=== PATIENT | female | born 1930 | race Caucasian/White ===

== ENCOUNTER 2017-03-10 01:52 | Inpatient (IN) | payer OTHER, MEDICARE ==
[2017-03-10] MEDS ORDERED: IOPAMIDOL (ISOVUE 370) 100 ML BTL IV ONE (02:02)
--- NOTE | 2017-03-10 02:05 | EDPHY ---
H & P Time Seen by Provider: 03/10/17 02:02 HPI/ROS: Chief Complaint: Left-sided weakness HPI: 86-year-old woman who went to bed normal at 10 o'clock in the evening. She woke this morning to go to the bathroom and fell with a new left-sided weakness. On EMS arrival she was awake and alert and having difficulties moving her left arm in her left leg. She had no loss of consciousness. She has past medical history of hypertension. Denies any chest pain shortness of breath. No recent illness. ROS: 10 point Review of Systems is negative except as noted in the HPI. PMH: Hypertension, vertigo, hypothyroidism Medications: Synthroid, meclizine p.r.n. Social History: No smoking, no alcohol, no recreational drug use Family History: non-contributory Physical Exam: Gen: Awake, Alert, No Distress HEENT: Nose: no rhinorrhea Eyes: PERRLA, EOMI Mouth: Moist mucosa Neck: Supple, no JVD Chest: nontender, lungs clear to auscultation Heart: S1, S2 normal, no murmur Abd: Soft, non-tender, no guarding Back: no CVA tenderness, no midline tenderness Ext: no edema, non-tender Skin: no rash Neuro: See NIH exam - Medical/Surgical History Other PMH: thyroid - Social History Smoking Status: Former smoker Constitutional: Initial Vital Signs Heart Rate 80 03/10/17 02:21 Respiratory Rate 14 03/10/17 02:21 Blood Pressure 162/91 H 03/10/17 02:21 O2 Sat (%) 93 03/10/17 02:21 O2 Delivery Mode Room Air Allergies/Adverse Reactions: Penicillins Allergy (Severe, Verified 03/10/17 02:23) throat closes up soy Allergy (Verified 03/10/17 02:23) Home Medications: Medication Instructions Recorded Thyroid [[place]ata Thyroid] 60 mg PO DAILY10 08/02/15 Meclizine HCl 03/10/17 Medical Decision Making - Diagnostics Imaging Results: CT scan of the brain is negative per Dr. Drake CT angiogram of the head neck shows some mild sclerosis of the carotid arteries , otherwise negative head and CT angiogram. Interpreted by Dr. Drake. Imaging: Discussed imaging studies w/ casino banker Radiologist ED Course/Re-evaluation: Patient arrived as a stroke alert. Initial NIH score of 8. Patient to CT. I have consulted with Dr. Owens, who [facility]. Patient is outside the time window for thrombolytics. Will await CT results. CT scan of the head is negative for acute pathology. Awaiting CT angio results. Patient's condition is unchanged CT angio of the head neck are noted. No acute processes. I have discussed again with Dr. Owens, neurology. She is commended admitted patient here for MRI and further stroke workup. Patient is not a candidate for any thrombolytics or intra-arterial therapy at this time. Patient is awake alert and comfortable. No significant changes in her neurologic exam. I have discussed with Dr. Contreras. He will admit to his service for further care. Critical Care Time: I spent a total of 35 minutes of critical care time in obtaining history, performing a physical exam, bedside monitoring of interventions, collecting and interpreting tests and discussion with consultants but not including time spent performing procedures. - Data Points Laboratory Results: Laboratory Results 03/10/17 01:50 03/10/17 01:50 03/10/17 03/10/17 03/10/17 01:50 01:50 01:50 WBC 8.71 10^3/uL 10^3/uL (3.80-9.50) RBC 4.72 10^6/uL 10^6/uL (4.18-5.33) Hgb 15.1 g/dL g/dL (12.6-16.3) POC Hgb Hct 44.2 % % (38.0-47.0) POC Hct MCV 93.6 fL fL (81.5-99.8) MCH 32.0 pg pg (27.9-34.1) MCHC 34.2 g/dL g/dL (32.4-36.7) RDW 13.3 % % (11.5-15.2) Plt Count 234 10^3/uL 10^3/uL (150-400) MPV 9.6 fL fL (8.7-11.7) Neut % (Auto) 63.8 % % (39.3-74.2) Lymph % (Auto) 24.3 % % (15.0-45.0) [place] % (Auto) 9.5 % % (4.5-13.0) Eos % (Auto) 1.5 % % (0.6-7.6) Baso % (Auto) 0.7 % % (0.3-1.7) Nucleat RBC Rel Count 0.0 % % (0.0-0.2) Absolute Neuts (auto) 5.55 10^3/uL 10^3/uL (1.70-6.50) Absolute Lymphs (auto) 2.12 10^3/uL 10^3/uL (1.00-3.00) Absolute Monos (auto) 0.83 10^3/uL H 10^3/uL (0.30-0.80) Absolute Eos (auto) 0.13 10^3/uL 10^3/uL (0.03-0.40) Absolute Basos (auto) 0.06 10^3/uL 10^3/uL (0.02-0.10) Absolute Nucleated RBC 0.00 10^3/uL 10^3/uL (0-0.01) Immature Gran % 0.2 % % (0.0-1.1) Immature Gran # 0.02 10^3/uL 10^3/uL (0.00-0.10) PT INR APTT POC Sodium Sodium 140 mEq/L mEq/L (134-144) POC Potassium Potassium 4.1 mEq/L mEq/L (3.5-5.2) POC Chloride Chloride 107 mEq/L mEq/L (97-110) Carbon Dioxide 24 mEq/l mEq/l (22-31) Anion Gap 9 mEq/L mEq/L (8-16) POC BUN BUN 13 mg/dL mg/dL (7-23) Creatinine 0.9 mg/dL mg/dL (0.6-1.0) POC Creatinine Estimated GFR 59 Glucose 103 mg/dL H mg/dL (70-100) POC Glucose Hemoglobin A1c Pending Estim Average Glucose Pending Calcium 10.6 mg/dL H mg/dL (8.5-10.4) Phosphorus Total Bilirubin 0.5 mg/dL mg/dL (0.1-1.4) AST 17 IU/L IU/L (14-46) ALT 24 IU/L IU/L (9-52) Alkaline Phosphatase 61 IU/L IU/L (38-126) Troponin I Total Protein 6.3 g/dL g/dL (6.3-8.2) Albumin 3.6 g/dL g/dL (3.5-5.0) 03/10/17 03/10/17 03/10/17 01:50 01:50 01:50 WBC 8.61 10^3/uL 10^3/uL (3.80-9.50) RBC 5.07 10^6/uL 10^6/uL (4.18-5.33) Hgb 15.9 g/dL g/dL (12.6-16.3) POC Hgb Hct 47.2 % H % (38.0-47.0) POC Hct MCV 93.1 fL fL (81.5-99.8) MCH 31.4 pg pg (27.9-34.1) MCHC 33.7 g/dL g/dL (32.4-36.7) RDW 13.3 % % (11.5-15.2) Plt Count 260 10^3/uL 10^3/uL (150-400) MPV 10.0 fL fL (8.7-11.7) Neut % (Auto) 47.0 % % (39.3-74.2) Lymph % (Auto) 39.0 % % (15.0-45.0) [place] % (Auto) 10.0 % % (4.5-13.0) Eos % (Auto) 3.1 % % (0.6-7.6) Baso % (Auto) 0.8 % % (0.3-1.7) Nucleat RBC Rel Count 0.0 % % (0.0-0.2) Absolute Neuts (auto) 4.04 10^3/uL 10^3/uL (1.70-6.50) Absolute Lymphs (auto) 3.36 10^3/uL H 10^3/uL (1.00-3.00) Absolute Monos (auto) 0.86 10^3/uL H 10^3/uL (0.30-0.80) Absolute Eos (auto) 0.27 10^3/uL 10^3/uL (0.03-0.40) Absolute Basos (auto) 0.07 10^3/uL 10^3/uL (0.02-0.10) Absolute Nucleated RBC 0.00 10^3/uL 10^3/uL (0-0.01) Immature Gran % 0.1 % % (0.0-1.1) Immature Gran # 0.01 10^3/uL 10^3/uL (0.00-0.10) PT 13.1 SEC SEC (12.0-15.0) INR 1.00 (0.83-1.16) APTT 22.5 SEC L SEC (23.0-38.0) POC Sodium Sodium 140 mEq/L mEq/L (134-144) POC Potassium Potassium 4.1 mEq/L mEq/L (3.5-5.2) POC Chloride Chloride 106 mEq/L mEq/L (97-110) Carbon Dioxide 22 mEq/l mEq/l (22-31) Anion Gap 12 mEq/L mEq/L (8-16) POC BUN BUN 14 mg/dL mg/dL (7-23) Creatinine 0.9 mg/dL mg/dL (0.6-1.0) POC Creatinine Estimated GFR 59 Glucose 113 mg/dL H mg/dL (70-100) POC Glucose Hemoglobin A1c Estim Average Glucose Calcium 11.3 mg/dL H mg/dL (8.5-10.4) Phosphorus 3.7 mg/dL mg/dL (2.5-4.5) Total Bilirubin AST ALT Alkaline Phosphatase Troponin I < 0.012 ng/mL ng/mL (0.000-0.034) Total Protein Albumin 03/10/17 01:50 WBC RBC Hgb POC Hgb 16.7 gm/dL H gm/dL (12.6-16.3) Hct POC Hct 49 % H % (38-47) MCV MCH MCHC RDW Plt Count MPV Neut % (Auto) Lymph % (Auto) [place] % (Auto) Eos % (Auto) Baso % (Auto) Nucleat RBC Rel Count Absolute Neuts (auto) Absolute Lymphs (auto) Absolute Monos (auto) Absolute Eos (auto) Absolute Basos (auto) Absolute Nucleated RBC Immature Gran % Immature Gran # PT INR APTT POC Sodium 143 mEq/L mEq/L (134-144) Sodium POC Potassium 3.7 mEq/L mEq/L (3.3-5.0) Potassium POC Chloride 109 mEq/L mEq/L (97-110) Chloride Carbon Dioxide Anion Gap POC BUN 13 mg/dL mg/dL (7-23) BUN Creatinine POC Creatinine 0.9 mg/dL mg/dL (0.6-1.0) Estimated GFR Glucose POC Glucose 122 mg/dL H mg/dL (70-100) Hemoglobin A1c Estim Average Glucose Calcium Phosphorus Total Bilirubin AST ALT Alkaline Phosphatase Troponin I Total Protein Albumin Point of Care Test Results: 03/10/17 01:50 POC Sodium 143 POC Potassium 3.7 POC Chloride 109 POC BUN 13 POC Creatinine 0.9 POC Glucose 122 H Departure - Departure Disposition: [facility] Inpatient Acute Clinical Impression: Stroke Condition: Fair NIH Stroke Scale Date of Exam: 03/10/17 Time of Exam: 01:55 Level of Consciousness: Alert LOC Questions: Answers Both LOC Commands: Performs Both Correctly Best Gaze: Normal Visual: No Visual Loss Facial Palsy: Normal Motor Arm-Left: Some Effort to [place] Motor Arm-Right: No Drift Motor Leg-Left: No Effort to [place] Motor Leg-Right: No Effort to [place] Limb Ataxis: Absent Sensory: Normal Best Language: No Aphasia Dysarthria: Normal Extinction and Inattention (Neglect): No Abnormality NIH Scale Score: 8
[2017-03-10 02:07] LABS: % IMMATURE GRANULYOCYTES 0.1 % (0.0-1.1); ABSOLUTE IMMATURE GRANULOCYTES 0.01 10^3/uL (0.00-0.10); ADD DIFF? NO; ADD MORPH? NO; ADD SCAN? NO; ATYPICAL LYMPHOCYTE FLAG 10 (0-99); FRAGMENT RBC FLAG 0 (0-99); HEMATOCRIT 47.2 % (38.0-47.0); HEMOGLOBIN 15.9 g/dL (12.6-16.3); LEFT SHIFT FLG 0 (0-99); LIPEMIA HEMOLYSIS FLAG 80 (0-99); MEAN CELL HEMOGLOBIN 31.4 pg (27.9-34.1); MEAN CELL HEMOGLOBIN CONCENTR. 33.7 g/dL (32.4-36.7); MEAN CELL VOLUME 93.1 fL (81.5-99.8); PLATELET CLUMPS FLAG 40 (0-99); PLATELET COUNT 260 10^3/uL (150-400); RED BLOOD CELL COUNT 5.07 10^6/uL (4.18-5.33); RED CELL DISTRIBUTION WIDTH 13.3 % (11.5-15.2)
[2017-03-10 02:16] LABS: APTT 22.5 SEC (23.0-38.0); PROTIME(PATIENT) 13.1 SEC (12.0-15.0)
--- NOTE | 2017-03-10 02:27 | CPEKG ---
Heart Rate: 68 RR Interval: 882 P-R Interval: 140 QRSD Interval: 102 QT Interval: 400 QTC Interval: 426 P [place]: 28 QRS [place]: 10 T Wave [place]: 31 EKG Severity - ABNORMAL ECG - EKG Impression: SINUS RHYTHM EKG Impression: PROBABLE LEFT VENTRICULAR HYPERTROPHY Electronically Signed By: Duane Fernandes 10-Mar-2017 06:45:04
[2017-03-10 02:28] LABS: ANION GAP 12 mEq/L (8-16); CALCIUM 11.3 mg/dL (8.5-10.4); CARBON DIOXIDE 22 mEq/l (22-31); CHLORIDE 106 mEq/L (97-110); CREATININE 0.9 mg/dL (0.6-1.0); GLOMERULAR FILTRATION RATE 59; GLUCOSE 113 mg/dL (70-100); POTASSIUM 4.1 mEq/L (3.5-5.2); SODIUM 140 mEq/L (134-144)
[2017-03-10 02:40] LABS: TROPONIN I < 0.012 ng/mL (0.000-0.034)
[2017-03-10] MEDS ORDERED: ONDANSETRON DISINTEGRATING 4 MG TAB PO PRN (03:23)
[2017-03-10] MEDS ORDERED: ACETAMINOPHEN 325 MG TAB PO PRN (03:23)
[2017-03-10] MEDS ORDERED: ONDANSETRON 4 MG/2 ML VIAL IVP PRN (03:23)
--- NOTE | 2017-03-10 03:34 | PDGENHP ---
History and Physical - Chief Complaint Weakness - History of Present Illness 86 yo F with hypothyroidism presents to ED via EMS after acute onset of weakness. Patient went to bed in her usual state of health. She got up to go the bathroom around 10 PM and noted leg weakness. She called the front office at her independent living facility and they called EMS. EMS noted left sided weakness and brought her to the ED as a stroke alert. Upon arrival to the ED, ED physician Dr. Fernandes documented a NIHSS of 8 for L arm and b/l leg weakness. Upon my evaluation, it seems deficits were somewhat resolving. She was alert, fully oriented, and able to clearly retell the evening's events. She denies recent illness and her only medication is levothyroxine. She denies any acute symptoms at this time aside from b/l leg weakness. History Information - Allergies/Home Medication List Allergies/Adverse Reactions: Penicillins Allergy (Severe, Verified 03/10/17 02:23) throat closes up soy Allergy (Verified 03/10/17 02:23) Home Medications: Thyroid [Gregory Thyroid] 60 mg PO DAILY10 08/02/15 [Last Taken Unknown] Meclizine HCl 03/10/17 [Last Taken Unknown] I have personally reviewed and updated: family history, medical history - Past Medical History Additional medical history: Hypothyroid - Family History Positive for: diabetes type II, stroke - Social History Smoking Status: Former smoker Alcohol Use: None Drug Use: None Review of Systems Review of Systems: ROS: 10pt was reviewed & negative except for what was stated in HPI & below Physical Exam Physical Exam: Temp Pulse Resp BP Pulse Ox 80 14 162/91 H 93 03/10/17 02:21 03/10/17 02:21 03/10/17 02:21 03/10/17 02:21 Constitutional: no apparent distress, appears nourished Eyes: PERRL, EOMI Ears, Nose, Mouth, Throat: moist mucous membranes, no oral mucosal ulcers Cardiovascular: regular rate and rhythym, no murmur, rub, or gallop Respiratory: no respiratory distress, clear to auscultation Gastrointestinal: normoactive bowel sounds, soft, non-tender abdomen Skin: warm, no rashes or abrasions Neurologic: AAOx3, weakness (Mild LUE weakness with arm drifting down but not touching bed during 10 sec NIHSS strength test. B/l leg strength normal per NIHSS evaluation.), facial droop (Subtle left-sided facial droop. ), other ( NIHSS 2 on my evaluation.) Psychiatric: interacting appropriately, not anxious, not encephalopathic Lab Data & Imaging Review 03/10/17 01:50 03/10/17 01:50 WBC 8.61 10^3/uL (3.80-9.50) 03/10/17 01:50 RBC 5.07 10^6/uL (4.18-5.33) 03/10/17 01:50 Hgb 15.9 g/dL (12.6-16.3) 03/10/17 01:50 POC Hgb 16.7 gm/dL (12.6-16.3) H 03/10/17 01:50 Hct 47.2 % (38.0-47.0) H 03/10/17 01:50 POC Hct 49 % (38-47) H 03/10/17 01:50 MCV 93.1 fL (81.5-99.8) 03/10/17 01:50 MCH 31.4 pg (27.9-34.1) 03/10/17 01:50 MCHC 33.7 g/dL (32.4-36.7) 03/10/17 01:50 RDW 13.3 % (11.5-15.2) 03/10/17 01:50 Plt Count 260 10^3/uL (150-400) 03/10/17 01:50 MPV 10.0 fL (8.7-11.7) 03/10/17 01:50 Neut % (Auto) 47.0 % (39.3-74.2) 03/10/17 01:50 Lymph % (Auto) 39.0 % (15.0-45.0) 03/10/17 01:50 [place] % (Auto) 10.0 % (4.5-13.0) 03/10/17 01:50 Eos % (Auto) 3.1 % (0.6-7.6) 03/10/17 01:50 Baso % (Auto) 0.8 % (0.3-1.7) 03/10/17 01:50 Nucleat RBC Rel Count 0.0 % (0.0-0.2) 03/10/17 01:50 Absolute Neuts (auto) 4.04 10^3/uL (1.70-6.50) 03/10/17 01:50 Absolute Lymphs (auto) 3.36 10^3/uL (1.00-3.00) H 03/10/17 01:50 Absolute Monos (auto) 0.86 10^3/uL (0.30-0.80) H 03/10/17 01:50 Absolute Eos (auto) 0.27 10^3/uL (0.03-0.40) 03/10/17 01:50 Absolute Basos (auto) 0.07 10^3/uL (0.02-0.10) 03/10/17 01:50 Absolute Nucleated RBC 0.00 10^3/uL (0-0.01) 03/10/17 01:50 Immature Gran % 0.1 % (0.0-1.1) 03/10/17 01:50 Immature Gran # 0.01 10^3/uL (0.00-0.10) 03/10/17 01:50 PT 13.1 SEC (12.0-15.0) 03/10/17 01:50 INR 1.00 (0.83-1.16) 03/10/17 01:50 APTT 22.5 SEC (23.0-38.0) L 03/10/17 01:50 POC Sodium 143 mEq/L (134-144) 03/10/17 01:50 Sodium 140 mEq/L (134-144) 03/10/17 01:50 POC Potassium 3.7 mEq/L (3.3-5.0) 03/10/17 01:50 Potassium 4.1 mEq/L (3.5-5.2) 03/10/17 01:50 POC Chloride 109 mEq/L (97-110) 03/10/17 01:50 Chloride 106 mEq/L (97-110) 03/10/17 01:50 Carbon Dioxide 22 mEq/l (22-31) 03/10/17 01:50 Anion Gap 12 mEq/L (8-16) 03/10/17 01:50 POC BUN 13 mg/dL (7-23) 03/10/17 01:50 BUN 14 mg/dL (7-23) 03/10/17 01:50 Creatinine 0.9 mg/dL (0.6-1.0) 03/10/17 01:50 POC Creatinine 0.9 mg/dL (0.6-1.0) 03/10/17 01:50 Estimated GFR 59 03/10/17 01:50 Glucose 113 mg/dL (70-100) H 03/10/17 01:50 POC Glucose 122 mg/dL (70-100) H 03/10/17 01:50 Calcium 11.3 mg/dL (8.5-10.4) H 03/10/17 01:50 Phosphorus 3.7 mg/dL (2.5-4.5) 03/10/17 01:50 Troponin I < 0.012 ng/mL (0.000-0.034) 03/10/17 01:50 Imaging Review: CT Head with no acute findings. CTA Head/Neck with calcified plaque of b/l carotids but <50% stenosis. No acute thrombus identified. Visualized and Interpreted EKG results: Yes EKG Interpretation: Positive for: normal sinsus rhythm Assessment & Plan Assessment: 86 yo F w/ hypothyroid presenting with stroke. Plan: 1. Acute stroke, ischemic - Discussed case with ED physician Dr. Fernandes, who consulted Neurology in ED. Noting arrival in ED 4 hours after symptom onset and age >80, the decision was made to not administer t-Pa. NIHSS initially 8 on arrival in ED, improved to 2 (subtle L facial droop, mild L arm weakness) by the time of my evaluation [address] head showed no acute change and CTA Head/neck showed only calcified stenosis of b/l carotids, <50%. ECG in NSR. - Monitor on telemetry - Obtain echocardiogram - Check lipid panel, A1c - Will start ASA 81 qD, Atorva 20 (med intensity statin given age) - MRI brain ordered - Neurology consulted, appreciate assistance 2. Hypercalcemia - Has documented hyperparathyroidism. 3. Hypothyroid - Takes LTX as outpatient. Diet - NPO pending swallow evaluation Code - DNR per discussion with patient Ppx - SCDs Dispo - Admit to observation, suspect <2 MN noting resolving symptoms Proxy - Daughter, Kayla Diaz
[2017-03-10 04:46] LABS: % IMMATURE GRANULYOCYTES 0.2 % (0.0-1.1); ABSOLUTE IMMATURE GRANULOCYTES 0.02 10^3/uL (0.00-0.10); ADD DIFF? NO; ADD MORPH? NO; ADD SCAN? NO; ATYPICAL LYMPHOCYTE FLAG 20 (0-99); FRAGMENT RBC FLAG 0 (0-99); HEMATOCRIT 44.2 % (38.0-47.0); HEMOGLOBIN 15.1 g/dL (12.6-16.3); LEFT SHIFT FLG 0 (0-99); LIPEMIA HEMOLYSIS FLAG 90 (0-99); MEAN CELL HEMOGLOBIN CONCENTR. 34.2 g/dL (32.4-36.7); MEAN CELL VOLUME 93.6 fL (81.5-99.8); MEAN PLATELET VOLUME 9.6 fL (8.7-11.7); PLATELET CLUMPS FLAG 0 (0-99); PLATELET COUNT 234 10^3/uL (150-400); RED BLOOD CELL COUNT 4.72 10^6/uL (4.18-5.33); RED CELL DISTRIBUTION WIDTH 13.3 % (11.5-15.2)
[2017-03-10 05:05] LABS: ALANINE AMINOTRANSFERASE 24 IU/L (9-52); ALBUMIN 3.6 g/dL (3.5-5.0); ALKALINE PHOSPHATASE 61 IU/L (38-126); ANION GAP 9 mEq/L (8-16); ASPARTATE AMINOTRANSFERASE 17 IU/L (14-46); BILIRUBIN,TOTAL 0.5 mg/dL (0.1-1.4); CALCIUM 10.6 mg/dL (8.5-10.4); CARBON DIOXIDE 24 mEq/l (22-31); CHLORIDE 107 mEq/L (97-110); CREATININE 0.9 mg/dL (0.6-1.0); GLOMERULAR FILTRATION RATE 59; GLUCOSE 103 mg/dL (70-100); POTASSIUM 4.1 mEq/L (3.5-5.2); SODIUM 140 mEq/L (134-144); TOTAL PROTEIN 6.3 g/dL (6.3-8.2)
[2017-03-10] MEDS: ASPIRIN 81 MG CHEWABLE TAB PO SCH (08:40)
[2017-03-10] MEDS: ATORVASTATIN CALCIUM 20 MG TAB PO SCH (08:42)
[2017-03-10 09:52] LABS: HEMOGLOBIN A1C 5.1 % (4.0-6.0)
--- NOTE | 2017-03-10 13:47 | NEUROPROG ---
Assessment: [id number] CC: Probable Stroke HPI: Pt brought in for acute weakness. Went to bed on 03/09/17 in normal state of good health but awoke at 10 PM and noted weakness. EMS called and brought ED where it was noted she had b/l leg and left arm weakness with NIH SS 8. Head CT and CTA head/neck showed no acute findings. H&P stated pt presented > 4 hours after symptom onset and age > 80 yo so TPA not given (symptoms also improving). I saw her 03/10/17. She reported symptoms had improved but she still had left facial/arm/leg weakness. PMHx: hypothyroidism, hyperparathyroidism Home Meds: armour thyroid, meclizine SHx: lives in independent assisted living FHx: DM2, stroke ROS: Pt denied acute fever, total vision loss, active severe chest pain, respiratory failure, total body severe rash, total bowel/bladder incontinence, psychosis, active seizures, or active bleeding O: VS reviewed General: Alert Eyes: Fundoscopic exam not able to visualize optic disks CV: Heart RRR, no murmur, no carotid bruit Lungs: Clear to auscultation bilaterally, no rhonci or rales Neuro: - Mental: . Oriented x person/place/date . concentration appears normal . speech fluency/comprehension normal . memory appears normal . fund of knowledge appear intact - Cranial Nerves: . II: PERRL, VFFTC . III/IV/: EOMI, no nystagmus, normal smooth pursuits, no Ptosis . V: facial sensation intact to LT . VII: face symmetric to eye closure and smile but lower left facial weakness seen . VIII: hearing intact to conversation . IX/X: uvula raises symmetrically . XI: SCM 5/5 B/L strength . XII: tongue protrudes midline w/nl strength - Motor: . Tone: normal tone in all 4 extrem . Strength: left arm/leg weakness - Reflexes: B/L bic/BR/patella 2/4 - Sensory: all 4 extrem intact to light touch - Coord: [id number] wnl, PAKO wnl, [id number]-[id number] wnl - Gait: deferred - NIH SS: 4 (left lower facial weak 2, left arm 1/left leg 1) Labs: 03/10/17- CBC wnl, INR 1.00, CMP Ca 10.6H Rads: 03/10/17- Head CT: no acute changes (I personally visualized the images on ) 03/10/17- CTA head/neck: reported to not show anything acute with carotid stenosis < 50% Assessment: 1. Left face/arm/leg weakness: Probable right sided stroke. Will get stroke evaluation. 2. Elevated blood pressure Plan: - Pt is DNR - Labs: LDL, H1AC - TTE - 24 hour telemtry - Brain MRI w/o con - BP < 220/120 x 72 hours then < 140/90 - Begin ASA 325 mg qd (pt not on aspirin prior to event), change to aspirin 81 mg qd at discharge - DVT prophy per hospitalist - PT/OT consult to determine rehab needs Neurology will continue to follow closely Objective: Vital Signs Temp Pulse Resp BP Pulse Ox 36.3 C 57 L 12 186/83 H 97 03/10/17 11:49 03/10/17 11:49 03/10/17 11:49 03/10/17 11:49 03/10/17 11:49 03/09/17 03/10/17 03/11/17 05:59 05:59 05:59 Intake Total 230 Output Total 300 Balance -70 PT 13.1 SEC (12.0-15.0) 03/10/17 01:50 INR 1.00 (0.83-1.16) 03/10/17 01:50 Allergies/Adverse Reactions: Penicillins Allergy (Severe, Verified 03/10/17 02:23) throat closes up soy Allergy (Verified 03/10/17 02:23)
--- NOTE | 2017-03-10 13:49 | HOSPPROG ---
Hospitalist Progress Note Assessment/Plan: Patient is an 86 y/o female who presented to the ED with acute onset of weakness. She was brought to the ER for a stroke w/u. * Acute stroke, ischemic /left sided weakness MRI Shows a right frontal lobe lacunar infarct CTA of the neck shows some stenosis CT of the head shows no acute thrombus in the [place] reviewed waiter/waitress bar/ sinus rhythm lipid panel pending A1c is 5.1 on asa and statin *Hypercalcemia has known hyperparathyroidism Ca level better w hydration *hypothyroidism cont Synthroid *HTN allow for permissive htn in the setting of an acute stroke *dispo: pending/ she will need a SNF with paralysis/weakness of her left side. Subjective: Guillermina who goes by Lin is feeling well/ she is aware she has a stroke Objective: Vital Signs Temp Pulse Resp BP Pulse Ox 36.3 C 57 L 12 186/83 H 97 03/10/17 11:49 03/10/17 11:49 03/10/17 11:49 03/10/17 11:49 03/10/17 11:49 03/09/17 03/10/17 03/11/17 05:59 05:59 05:59 Intake Total 230 Output Total 300 Balance -70 PT 13.1 SEC (12.0-15.0) 03/10/17 01:50 INR 1.00 (0.83-1.16) 03/10/17 01:50 - Physical Exam Constitutional: no apparent distress, not in pain Eyes: PERRL Ears, Nose, Mouth, Throat: hearing normal Cardiovascular: regular rate and rhythym Respiratory: no respiratory distress Skin: warm Musculoskeletal: other (unable to lift left arm against gravity, can move left leg/ squeeze w left hand is weak) Neurologic: AAOx3 Psychiatric: interacting appropriately, not anxious ICD10 Worksheet Patient Problems: Problems Problem Status Onset Stroke Acute
--- NOTE | 2017-03-10 16:19 | ASMTCMCOM ---
CM Note CM Note Notes: Patiented admitted for Acute Stroke. Rehab Consult ordered, Tiffany at [facility] Inpatient Rehab aware and looking into case. Tiffany will follow-up with Case Management on Friday. Discussed with BOTTOM POLISHER. ADELIA will follow. Date Signed: 03/10/2017 04:18 PM Electronically Signed By:Rosita Esquivel RN
[2017-03-11 05:13] LABS: CHOLESTEROL 183 mg/dL (140-220); CHOLESTEROL/HDL RATIO 3.16 RATIO (1.00-4.44); HIGH DENSITY LIPOPROTEIN 58 mg/dL (40-85); LDL/HDL RATIO 1.93 RATIO (1.00-3.22); LOW DENSITY LIPOPROTEIN 112 mg/dL (80-100); NON-HIGH DENSITY LIPOPROTEIN 125 mg/dL (90-129); TRIGLYCERIDE 66 mg/dL (35-135); VERY LOW DENSITY LIPOPROTEINS 13 mg/dL (8-25)
[2017-03-11] MEDS: LEVOTHYROXINE 88 MCG TAB PO SCH (06:15)
[2017-03-11] MEDS: ASPIRIN 81 MG CHEWABLE TAB PO SCH (08:51)
[2017-03-11] MEDS: ATORVASTATIN CALCIUM 20 MG TAB PO SCH (08:54)
--- NOTE | 2017-03-11 11:00 | HOSPPROG ---
Hospitalist Progress Note Assessment/Plan: Patient is an 86 y/o female who presented to the ED with acute onset of weakness. She was brought to the ER for a stroke w/u. * Acute stroke, ischemic /left sided weakness MRI Shows a right frontal lobe lacunar infarct CTA of the neck shows some stenosis CT of the head shows no acute thrombus in the [place] reviewed header dock/ sinus rhythm/no afib ldl is 112 A1c is 5.1 on asa and statin Echo shows diastolic dysfunction, EF 63% the interatrial septum is intact, no interatrial shunt *Hypercalcemia has known hyperparathyroidism Ca level better w hydration *hypothyroidism cont Synthroid *HTN allow for permissive htn in the setting of an acute stroke *dispo: patient will need another midnight stay/ unable to return to her AL due to weakness from the stroke and will need a higher level of care. This will make her IP status. Subjective: Lin has no complaints. His hesitant to try a statin but is willing to to reduce her risk of stroke Objective: Vital Signs Temp Pulse Resp BP Pulse Ox 36.6 C 56 L 14 175/77 H 93 03/11/17 08:00 03/11/17 08:00 03/11/17 08:00 03/11/17 08:00 03/11/17 08:00 03/10/17 03/11/17 03/12/17 05:59 05:59 05:59 Intake Total 230 450 Output Total 300 300 Balance -70 450 -300 PT 13.1 SEC (12.0-15.0) 03/10/17 01:50 INR 1.00 (0.83-1.16) 03/10/17 01:50 - Physical Exam Constitutional: no apparent distress, appears nourished, not in pain Eyes: PERRL Ears, Nose, Mouth, Throat: hearing normal Cardiovascular: regular rate and rhythym Respiratory: no respiratory distress Skin: warm, normal color Musculoskeletal: other (Left arm anti gravity, can slightly squeeze with left hand. Left arm seems a bit weaker since yesterday.) Neurologic: AAOx3, No facial droop Psychiatric: interacting appropriately, not anxious ICD10 Worksheet Patient Problems: Problems Problem Status Onset Stroke Acute
--- NOTE | 2017-03-11 11:35 | ASMTCMCOM ---
CM Note CM Note Notes: Received a voicemail from Tiffany Guerrero [phone] at [facility] Inpatient Rehab, feels patient is appropriate for acute rehab. at In. Rehab to now review case. Tiffany will follow-up with CM later today with further information. CM will follow. Date Signed: 03/11/2017 11:34 AM Electronically Signed By:Rosita Esquivel RN
--- NOTE | 2017-03-11 12:33 | NEUROPROG ---
Assessment: [id number] CC: F/U for Stroke Narrative Summary: Pt brought in for acute weakness. Went to bed on 03/09/17 in normal state of good health but awoke at 10 PM and noted weakness. EMS called and brought ED where it was noted she had b/l leg and left arm weakness with NIH SS 8. Head CT and CTA head/neck showed no acute findings. H&P stated pt presented > 4 hours after symptom onset and age > 80 yo so TPA not given (symptoms also improving). I saw her 03/10/17. She reported symptoms had improved but she still had left facial/arm/leg weakness. Inpatient f/u 03/11/17. No new complaints. Pt feels left sided weakness unchanged. PMHx: hypothyroidism, hyperparathyroidism Home Meds: armour thyroid, meclizine SHx: lives in independent assisted living FHx: DM2, stroke ROS: Pt denied acute fever, total vision loss, active severe chest pain, respiratory failure, total body severe rash, total bowel/bladder incontinence, psychosis, active seizures, or active bleeding O: 03/10/17: - NIH SS: 4 (left lower facial weak 2, left arm 1/left leg 1) Labs: 03/10/17- CBC wnl, INR 1.00, CMP Ca 10.6H, H1AC 5.1 03/11/17- LDL 112 Rads: 03/10/17- Head CT: no acute changes (I personally visualized the images on ) 03/10/17- CTA head/neck: reported to not show anything acute with carotid stenosis < 50% 03/10/17- Brain MRI w/o con: R subcortical frontal 1 cm acute stroke, old R lentiform lacunar stroke, mod CMVD and mild atrophy 03/10/17- 24 hour telemetry: no afib seen 03/10/17- TTE: pending Assessment: 1. Right Lacunar Subcortical frontal stroke causing Left face/arm/leg weakness: CTA head/neck and 24 hour telemetry show no alternative cause for stroke so likely lacunar from small vessel disease. TTE pending. Treatment will be maximal medical management unless TTE suggests cardioembolic source. 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 2. Elevated blood pressure Plan: - Pt is DNR - LDL goal < 70 (112), statin started - H1AC goal < 7.0 (5.1) - TTE pending - BP < 220/120 x 48 hours then < 140/90 - Begin ASA 325 mg qd (pt not on aspirin prior to stroke), change to aspirin 81 mg qd at discharge - PT/OT consult to determine rehab needs - F/U in neurology clinic with Dr. River 1-4 weeks after discharge 35 min spent with patient, majority of time spent counseling on stroke and prognosis. Neurology will sign off, please call for any questions. Objective: Vital Signs Temp Pulse Resp BP Pulse Ox 36.4 C 54 L 14 169/80 H 95 03/11/17 12:00 03/11/17 12:00 03/11/17 12:00 03/11/17 12:00 03/11/17 12:00 03/10/17 03/11/17 03/12/17 05:59 05:59 05:59 Intake Total 230 450 Output Total 300 300 Balance -70 450 -300 PT 13.1 SEC (12.0-15.0) 03/10/17 01:50 INR 1.00 (0.83-1.16) 03/10/17 01:50 Allergies/Adverse Reactions: Penicillins Allergy (Severe, Verified 03/10/17 02:23) throat closes up soy Allergy (Verified 03/10/17 02:23)
--- NOTE | 2017-03-11 14:49 | ECHO ---
[id number] + + [address] : : [place] [address] : : [phone] + + Adult Echocardiographic Report + --+ :Name: LEONARD TALAMANTES PStudy Date: 03/10/2017 09:31 AM : : Hospital Admission Number: [id number] : :: 1930 Gender: Female Height: 60 in : :Age: 86 yrs Race: WH Weight: 160 lb : :Reason For Study: Eval LV Fx : : BSA: 1.7 meter s2: :History: Ischemic Stroke with Bubble : + --+ MMode/2D Measurements & Calculations IVSd: 0.99 cm LVIDd: 3.8 cm FS: 32.7 % Ao root diam: 2.8 cm LVPWd: 1.0 cm LVIDs: 2.6 cm EDV(Teich): 62.1 ml ACS: 1.6 cm ESV(Teich): 23.7 ml EF(Teich): 61.9 % Normal Measurement Values: + + :LVIDd (3.5-5.7cm) IVSd (0.6-1.1cm) LVPWd (0.6-1.1cm) Aortic Root (2.0-3.7cm)Left Atrium (1.5-4.0cm): :LV Vol(d) (76-115ml) LV Vol(s) (29-48ml) Ejec Fraction (50-65%)PV Mukesh (0.6- 1.2m/s) TV Mukesh (0.4-1.0m/s) : :MV E Mukesh (0.8-1.0m/s)MV A Mukesh (0.3-1.0m/s)LVOT Mukesh (0.7-1.2m/s) Asc Ao Mukesh ( 0.9-1.8m/s) : + + Doppler Measurements & Calculations MV E max mukesh: Ao V2 max: AI max mukesh: LV V1 max: 49.9 cm/sec 104.5 cm/sec 494.7 cm/sec 92.3 cm/sec MV A max mukesh: Ao max PG: AI max P.9 mmHg LV V1 max P.1 cm/sec 4.4 mmHg AI dec slope: 3.4 mmHg MV E/A: 0.70 200.3 cm/sec2 AI P1/2t: 723.5 msec PA V2 max: 122.2 cm/sec PA max P.0 mmHg Left Ventricle The left ventricle is normal in size. There is normal left ventricular wall thickness. The left ventricular ejection fraction is normal. There is Doppler evidence for diastolic dysfunction. Ejection Fraction = 63%. Right Ventricle The right ventricle is normal in size and function. Atria The left atrial size is normal. Right atrial size is normal. Injection of contrast documented no interatrial shunt. Mitral Valve There is mild mitral annular calcification. There is no evidence of mitral valve prolapse. There is no mitral valve stenosis. There is no mitral regurgitation noted. Tricuspid Valve Normal tricuspid valve. No tricuspid regurgitation. Aortic Valve The aortic valve is trileaflet. There is no aortic stenosis. Mild aortic regurgitation. Pulmonic Valve The pulmonic valve is not well visualized. There is no pulmonic valvular regurgitation. Great Vessels The aortic root is normal size. Pericardium/Pleural There is no pericardial effusion. Conclusion A complete two-dimensional transthoracic echocardiogram was performed (2D, M-mode, Doppler and color flow Doppler). 1. The left ventricle is normal in size. The Ejection Fraction = 63%. 2. There is mild mitral annular calcification. There is no mitral regurgitation noted. 3. The aortic valve is trileaflet. There is no aortic stenosis. Mild aortic regurgitation. 4. Injection of contrast documented no interatrial shunt. 5. No old studies for compaison. Final Reading Physician: Ross Reese MD electronically signed on 03/11/2017 02:47 PM Ordering Physician: Toni Mulligan Performed By: Claudio Rondon, RDCS
[2017-03-12] MEDS: LEVOTHYROXINE 88 MCG TAB PO SCH (05:25)
--- NOTE | 2017-03-12 08:24 | HOSPPROG ---
Hospitalist Progress Note Assessment/Plan: Patient is an 86 y/o female who presented to the ED with acute onset of weakness. She was brought to the ER for a stroke w/u. * Acute stroke, ischemic /left sided weakness MRI Shows a right frontal lobe lacunar infarct CTA of the neck shows some stenosis CT of the head shows no acute thrombus in the [place] of [place] reviewed monitor technician/ sinus rhythm/no afib ldl is 112 A1c is 5.1 on asa and statin Echo shows diastolic dysfunction, EF 63% the interatrial septum is intact, no interatrial shunt *Hypercalcemia has known hyperparathyroidism Ca level better w hydration *hypothyroidism cont Synthroid *HTN allow for permissive htn in the setting of an acute stroke bp quite elevated this morning/ will allow it to be elevated x 48 hours goal after this is 140/90 *dispo:could go to rehab today, will discuss w Dr River if he is ok with lowering her bp/ they would like this addressed prior to dc Subjective: Lin is willing to take meds, but wants to treat her stroke with hemp oil. Objective: Vital Signs Temp Pulse Resp BP Pulse Ox 36.6 C 56 L 15 183/85 H 94 03/12/17 07:32 03/12/17 07:32 03/12/17 07:32 03/12/17 07:32 03/12/17 07:32 PT 13.1 SEC (12.0-15.0) 03/10/17 01:50 INR 1.00 (0.83-1.16) 03/10/17 01:50 - Physical Exam Constitutional: no apparent distress, appears nourished, not in pain Eyes: PERRL Ears, Nose, Mouth, Throat: hearing normal Cardiovascular: regular rate and rhythym Respiratory: no respiratory distress Skin: warm Musculoskeletal: other (left arm with ongoing weakness) Neurologic: AAOx3 Psychiatric: interacting appropriately, poor memory ICD10 Worksheet Patient Problems: Problems Problem Status Onset Stroke Acute
[2017-03-12] MEDS: ATORVASTATIN CALCIUM 20 MG TAB PO SCH (09:25)
[2017-03-12] MEDS: ASPIRIN 81 MG CHEWABLE TAB PO SCH (09:25)
[2017-03-12 11:47] VITALS: BP 133/78; PULSE 74; RESP 16; TEMP 97.3; O2SAT 95
--- NOTE | 2017-03-12 12:34 | PDIAF ---
- Diagnosis Diagnosis: CVA Code Status: Do Not Resuscitate - Medication Management Discharge Medications: Medications to Continue on Transfer Levothyroxine [Synthroid 88 mcg (*)] 88 mcg PO DAILY06 03/10/17 [Last Taken 04/15 07:00] Meclizine HCl [Meclizine HCl 12.5 mg (*)] 25 mg PO TID PRN 03/10/17 [Last Taken Unknown] Multivitamins [Multivitamin (*)] 1 each PO DAILY 03/10/17 [Last Taken 03/09/17 07:00] Acetaminophen [Tylenol 325mg (*)] 650 mg PO Q4HRS PRN tab 03/12/17 [Last Taken Unknown] Aspirin [Aspirin 81mg (*)] 81 mg PO DAILY tab.chew 03/12/17 [Last Taken Unknown ] Atorvastatin Calcium [Lipitor 20 mg (*)] 20 mg PO DAILY tab 03/12/17 [Last Taken Unknown] amLODIPine BESYLATE [Norvasc 2.5 mg (*)] 2.5 mg PO DAILY tab 03/12/17 [Last Taken Unknown] Discharge Medications: Refer to the Discharge Home Medication list for PRN reason. PICC Care - Routine: N/A - Orders Services needed: Physical Therapy, Occupational Therapy, Speech Language Pathologist Diet Texture: Regular Texture Diet, Thin Liquids, Meds Whole w/Liquids - Follow Up Care Current Providers and Referrals: Patient,NotPresent [Unknown] - As per Instructions
--- NOTE | 2017-03-12 13:56 | ASMTCMCOM ---
CM Note CM Note Notes: Pt medically stable for d/c to [facility] inpatient rehab. Pt family to transport. Orders received via [employer]. Date Signed: 03/12/2017 01:56 PM Electronically Signed By:RAFAELA Rios
--- NOTE | 2017-03-12 13:57 | ASDISCHSUM ---
Discharge Information Plan Status:Inpatient Rehab Medically Cleared to Leave: Discharge Date:03/12/2017 01:54 PM CM D/C Disposition:[facility] In[facility] Acute ADT D/C Disposition:[facility] Re[facility] IP Projected Discharge Date:03/12/2017 11:00 AM Transportation at D/C:Family Discharge Delay Reason: Follow-Up Date:03/12/2017 11:00 AM Discharge Slot: Final Diagnosis: Placement Information Referral Type:Rehabilitation Hospital Referral ID:[id number] Provider Name:[facility] Inpatient Re[facility] Address 1:[address] Phone Number: Address 2: Fax Number: City:[place] Selection Factors: State:[place] Patient Contact Information Contact Name:ANDRÉS Relationship:Daughter Address: City: [place] [facility] Phone: [facility]/Zip Code: Email: Financial Information Financial Class: Primary Plan Desc:MEDICARE INPATIENT Primary Plan Number:[id number] Secondary Plan Desc:[employer]/MDR SUPPLEMENT Secondary Plan Number:[id number] Assessment Information [facility] CM Progress Note CM Note CM Note Notes: Patiented admitted for Acute Stroke. Rehab Consult orderedTiffany at [facility] Inpatient Rehab aware and looking into case. Tiffany will follow-up with Case Management on Friday. Discussed with TREATING ENGINEER. ADELIA will follow. Date Signed: 03/10/2017 04:18 PM Electronically Signed By:Rosita Esquivel RN [facility] CM Progress Note CM Note CM Note Notes: Received a voicemail from Tiffany Guerrero [phone] at [facility] Inpatient Rehab, feels patient is appropriate for acute rehab. at In. Rehab to now review caseJesus Allen will follow-up with CM later today with further information. CM will follow. Date Signed: 03/11/2017 11:34 AM Electronically Signed By:Rosita Esquivel RN [facility] CM Progress Note CM Note CM Note Notes: Pt medically stable for d/c to [facility] inpatient rehab. Pt family to transport. Orders received via [employer]. Date Signed: 03/12/2017 01:56 PM Electronically Signed By:RAFAELA Rios Intervention Information Intervention Type:*CAROLINE-Signed Date of Service:03/10/2017 09:29 AM Patient Type:Observation Staff Member:Esme Escoto Hours: Discipline: Severity: Comment:
--- NOTE | 2017-03-12 14:07 | GDS ---
[f rep st] DISCHARGE SUMMARY DISCHARGE DIAGNOSES: 1. Acute cerebrovascular accident/ischemic. 2. Hypercalcemia. 3. Hypothyroidism. 4. Hypertension. CONSULTATIONS: Duane River DO. HISTORY OF PRESENT ILLNESS: Briefly, the patient is an 86-year-old female, who was brought in for acute weakness. She went to bed on March 09 in a normal state of health but woke at 10 p.m. and noted that she was weak. EMS was called , and she was brought to the emergency room in which she had left leg and left arm weakness. CT of the head and neck showed no acute findings. Her symptoms were greater than 4 hours, so tPA was not given. Also her symptoms were improving. During her stay, she had an echocardiogram performed which showed the left ventricle is normal in size. Her EF is 62%. She has mild mitral annular calcification. No mitral regurgitation is noted. The aortic valve is trileaflet. Injection of contrast documented no interatrial shunt. Brain MRI was performed that showed mild cerebral atrophy. She had a right frontal lobe acute 1 cm lacunar infarct, posterior periventricular white matter without hemorrhage or mass effect. It is also noted that she had an old lacunar infarct , right lentiform nucleus. She has been slow to improve but continues to have significant left-sided weakness, more noted in her left upper extremity. She will be discharged today to inpatient rehabilitation for strengthening. HOSPITAL COURSE: 1. Acute cerebrovascular accident that is ischemic. She has been on the batch dumper. She has been in a sinus rhythm. No atrial fibrillation is noted. She has been started on aspirin and statin therapy as well as treatment for her blood pressure. The patient prefers no treatment but is agreeable during her stay. A1c is 5.1. 2. Hypercalcemia. She has known hyperparathyroidism. Her calcium level is better with hydration. 3. Hypothyroidism on Synthroid. 4. Hypertension. Allowed for permissive hypertension in the setting of stroke. Low-dose Norvasc has been initiated today with a stable blood pressure. DISCHARGE CONDITION: Stable. Blood pressure is 133/78, respiratory rate is 16 , heart rate is 74, O2 saturation on room air 95%, temperature 36.3 Celsius. MEDICATIONS AT DISCHARGE: Please see the EMR. DISCHARGE INSTRUCTIONS: 1. Really encouraging the patient to stay on statin therapy as well as aspirin and on blood pressure treatment. 2. If she has any further stroke symptoms, return to the ER. Greater than 30 minutes in discharging and coordinating her care. /[id number]/MODL JOVAN
== END 2017-03-12 13:54 | DRG 66 ==
LOC: EDUNIT# → F3N 04:05 → OBSVTOIN 03-11 12:17
PROVIDERS: ADMIT Student in an Organized Health Care Education/Training Program; ATTEND Student in an Organized Health Care Education/Training Program
DX: I63.9 Cerebral infarction, unspecified (principal); R29.708 NIHSS score 8; I10 Essential (primary) hypertension; E03.9 Hypothyroidism, unspecified; E21.3 Hyperparathyroidism, unspecified
CPT/HCPCS: 82947-QW; 92610-GN; 97112-GO; 97116-GP; 97162-GP; 97166-GO; 97530-GO; 97530-GP; 97535-GO; G0378; G8978-GP-CK; G8979-GP-CI; G8987-GO-CK; G8988-GO-CI; G8996-GN-CH; G8997-GN-CH; G8998-GN-CH; Q9967

== ENCOUNTER 2017-03-11 14:39 | Inpatient (IN) | payer OTHER, MEDICARE ==
[2017-03-12] MEDS ORDERED: MECLIZINE HCL 12.5 MG TAB PO PRN (15:16)
[2017-03-12] MEDS ORDERED: MECLIZINE HCL 25 MG TAB PO PRN (15:24)
[2017-03-12] MEDS ORDERED: BISACODYL 10 MG SUPP PR PRN (15:45)
--- NOTE | 2017-03-12 16:33 | GHP ---
[f rep st] HISTORY AND PHYSICAL POST ADMISSION PHYSICIAN EVALUATION AND REHABILITATION TREATMENT PLAN DATE OF ADMISSION: 03/12/2017 DATE OF EVALUATION: 03/12/2017. TIME OF EVALUATION: 1505. REFERRING PHYSICIAN: Elizabeth Portillo NP IMPAIRMENT GROUP: 1.1. DATE OF ONSET: 03/10/2017. CONSULTING PHYSICIAN: [place], with Neurology. REHABILITATION DIAGNOSIS: Cerebrovascular accident with right hemiparesis. ETIOLOGIC DIAGNOSIS: Left body involvement (right brain). HISTORY OF PRESENT ILLNESS: This patient came to the [facility] Emergency Department after acute onset of weakness which she noted when she got up from bed to go to the bathroom approximately 10 p.m. She called the front office at her independent living facility, and they called the ambulance. She had left arm and bilateral lower extremity weakness. MRI of the brain showed a right frontal lobe acute 1 cm lacunar infarct. There was also an old lacunar infarct in the right lentiform nucleus seen. She was not a candidate for thrombolysis because it was greater than 4 hours after symptom onset, and her age is greater than 80 years. She had improvement in her symptoms. STUDIES AND LABORATORIES: In the hospital, CBC was overall within normal limits. She had some hemoconcentration initially with a hemoglobin elevated at 16.7 and hematocrit elevated at 49. These normalized with hydration. Coagulation studies were overall within normal limits though her APTT was slightly low at 22.5. Serum chemistries revealed elevated glucose; however, her hemoglobin A1c was normal at 5.1. She initially had an elevated calcium at 11.3. This improved with hydration. Otherwise, renal function and electrolytes were within normal limits. Liver function was normal. Troponin-I was negative for cardiac ischemia. Lipid panel revealed a cholesterol of 183 and LDL of 112. HDL was 58. CT angiogram of the head and neck showed mild sclerosis of the carotid arteries. PRECAUTIONS: She is a fall risk. She has aspiration precautions. ACTIVE COMORBIDITIES: She has the active comorbidity of hemiparesis. Otherwise , she has no active tier 1, tier 2, or tier 3 comorbidities. PAST MEDICAL HISTORY: 1. Hypothyroidism. She reports that she had radiation as an 7-year-old child for strep throat, has been hypothyroid since then. 2. Hyperparathyroidism. 3. Vertigo. 4. Osteoarthritis PAST SURGICAL HISTORY: She denies history of surgeries. PRE-HOSPITAL MEDICATIONS: 1. Langston Thyroid. 2. Meclizine. ADMISSION MEDICATIONS: 1. Acetaminophen 650 mg p.o. q.4 hours p.r.n. 2. Amlodipine 2.5 mg p.o. q. day. 3. Aspirin 81 mg p.o. q. day. 4. Atorvastatin 20 mg p.o. q. day. 5. Levothyroxine 88 mcg p.o. q. day. 6. Meclizine 25 mg p.o. t.i.d. p.r.n. 7. Multivitamin 1 p.o. daily. ALLERGIES: Listed to penicillin and soy. FAMILY HISTORY: Noncontributory. PSYCHOSOCIAL HISTORY: She lives in independent living. She has a local daughter and several grandchildren who are supportive and involved in her care. She is a former smoker. REVIEW OF SYSTEMS: She denies pain, cough, dyspnea, chest pain, palpitations. She reports that she has constipation for several days. She reports that she has urinary frequency, and she has incontinence of urine for about the past year. She denies vision changes, headache, numbness or tingling of the extremities. She reports that occasionally she coughs when she swallows. She reports that she has had some improvement in her ability to move her left upper and lower extremities. She has walked a few feet with therapies. She reports that she has joint pain bilaterally in the knees and hips due to arthritis, and otherwise, a 10-point review of systems is negative. PHYSICAL EXAMINATION: VITAL SIGNS: Not yet available in the chart. This morning at the hospital, her blood pressure was 133/78, her heart rate is 74, respiratory rate is 16, oxygen saturation is 95% on 2 L and was 90% on room air. Temperature was 36.3 degrees centigrade. Her weight is 75.6 kg for a body mass index of 32.5. GENERAL: This is a well-nourished, well-developed, elderly woman, appears her chronologic age, sitting in a wheelchair cooperative and in no acute distress. HEENT: Extraocular movements are intact. Pupils are equal, round, reactive to light. Mucous membranes are moist. Dentition is in good condition. She has a mildly crowded airway, Mallampati class 2. NECK: Supple. HEART: There is a regular rate and rhythm with no murmurs, rubs, or gallops. LUNGS: Clear to auscultation bilaterally. ABDOMEN: Soft, nontender , nondistended with normoactive bowel sounds and no hepatosplenomegaly. EXTREMITIES: There is no cyanosis, clubbing, or edema. Radial and dorsalis pedis pulses are 2+ bilaterally. NEUROLOGIC: She is alert and oriented x3. Cranial nerves 2-12 are grossly intact but for a slight left facial droop visible at the left corner of the mouth and around the left eye. In the left upper extremity, she has 0/5 hand pastrycook, 1/5 wrist extension and biceps flexion, 2/5 to 3/5, triceps. She has movement about the scapula, but she has no deltoid. In her lower extremity on the left, hip flexor is 4/5, quadriceps is 4 /5, hamstring is 3/5,extensor hallucis longus is 5/5. Motor strength is 5/5 overall on the right side. Sensation is intact to light touch bilaterally. Deep tendon reflexes are globally hypoactive. Plantar reflexes upgoing on the right and indeterminate on the left. CURRENT LEVEL OF FUNCTION PER THE PRE-ADMISSION SCREEN: Regarding diet, feeding , and swallowing, she was taking regular textured food and thin liquids. Grooming was accomplished with standby assist and verbal cues. For bathing, dressing, and toileting, she needed assistance. Bed mobility and transfers were done with moderate assistance using a front-wheeled walker. Balance was poor, and endurance was poor. When the assessment was done, she had not yet ambulated. She was able to stand with a therapist and a front-wheeled walker with the left hand connected to the walker with an Aravind wrap. She required minimal assistance standing. Since then, she reports that she has ambulated 1 step a time in the unit at the hospital. Regarding cognition, she was noted to need verbal cues. IMPRESSION: This patient is an 86-year-old woman who likely had longstanding hypertension and a prior cerebrovascular accident who developed symptoms of left -sided weakness on 03/10/2017. She came to the emergency department too late for thrombolytics, which likely would have been contraindicated in any case due to her age. She has had improvement in her function during her brief hospital stay. Imaging did not show any obstructive lesions in the cerebral arteries. MRI showed a right frontal lacunar infarct as well as an old right lenticular infarct. She was allowed permissive hypertension initially and then begun on a small dose of amlodipine. Echocardiogram and telemonitoring ruled out any cardiac source of the stroke, though she did not have sufficiently long monitoring to rule out occult atrial fibrillation. Echocardiogram showed only mild aortic regurgitation and was otherwise normal. She has had functional improvement and is appropriate for inpatient rehabilitation. She will have therapy with Physical and Occupational Therapies to optimize mobility and activities of daily living. These have been scheduled for 90 minutes per day per discipline on 5-7 days of the week with a duration of 12-14 days. I will add a speech and language pathology consultation due to her self report of coughing after swallowing and the note that she needs cuing for cognition from her preadmission screen. Her goal is to return home alone to independent living. For a safe discharge, she will need to achieve modified independence with mobility and activities of daily living. She will need to have improvement in balance and endurance. She has been on oxygen, and if it continues to be needed, she will need to have the oxygen managed. She will need to be able to manage her medications. There will need to be education for the patient and her family. She will receive therapies as delineated above on 5-7 days per week. Her expected duration of stay is 12-14 days. It is anticipated that, upon discharge, she will continue to benefit from home health services including occupational therapy, physical therapy, and a stroke support group. ASSESSMENT AND PLAN: 1. Left hemiparesis, upper extremity greater than lower extremity, due to a right frontal lobe lacunar infarction with history of a right lenticular nucleus infarction as well. PT and OT to optimize mobility and activities of daily living. 2. Question of dysphagia, though she passed a swallowing screen in the hospital as well as possible cognitive impairment. I will order speech and language pathology consultation. 3. Secondary stroke prophylaxis. Continue aspirin and atorvastatin. She is still in the timeframe of permissive hypertension, so amlodipine will be continued but not adjusted until the 13 of March. 4. Hypertension. She has started amlodipine, and this will be continued. 5. Constipation. She has been on no laxative during her hospital stay. Constipation is likely due to change in activity and not being in her usual circumstances. I have ordered senna 1 twice daily on an as-needed basis as well as a bisacodyl suppository should she continue to have constipation while taking senna. 6. Urinary incontinence. She has had this symptom for approximately a year. Will do bladder scanning to rule out urinary retention and overflow as an etiology. 7. Hypothyroidism. Continue levothyroxine. 8. History of vertigo. Query whether this might have been related to the lenticular nucleus stroke in the past. She did not use meclizine during her hospitalization, but it has been ordered on hospital discharge. She will be observed for recurrence of vertigo, and further evaluation can be done if she has recurrence. 9. Prophylaxis. She has greatly reduced mobility and hemiparesis. We will continue enoxaparin until her mobility improves significantly. 10. Code status was discussed, and this patient elected do not resuscitate. /[id number]/MODL MTDD
[2017-03-13] MEDS: LEVOTHYROXINE 88 MCG TAB PO SCH (05:08)
[2017-03-13] MEDS: ENOXAPARIN 40 MG/0.4 ML SYR SC SCH ×2 (08:40→12:33)
[2017-03-13] MEDS: ASPIRIN 81 MG CHEWABLE TAB PO SCH (08:40)
[2017-03-13] MEDS: SENNOSIDES 1 TAB PO PRN (08:40)
[2017-03-13] MEDS: MULTIVITAMINS 1 EACH TAB PO SCH (08:40)
[2017-03-13] MEDS: ATORVASTATIN CALCIUM 20 MG TAB PO SCH (09:01)
--- NOTE | 2017-03-13 10:52 | SOAPPROG ---
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 PT and OT to optimize mobility and activities of daily living. * Question of dysphagia, though she passed a swallowing screen in the hospital as well as possible cognitive impairment. I will order speech and language pathology consultation. * Secondary stroke prophylaxis. Continue aspirin and atorvastatin. She is still in the timeframe of permissive hypertension, so amlodipine will be continued but not adjusted until the 13 of March. * Hypertension. Increase amlodipine from 2.5-5 mg p.o. q.day. Starting this afternoon 03/13/2017 she is post her 48 hour period of permissive hypertension. * Constipation. She has been on no laxative during her hospital stay. Constipation is likely due to change in activity and not being in her usual circumstances. I have ordered senna 1 twice daily on an as-needed basis as well as a bisacodyl suppository should she continue to have constipation while taking senna. * Urinary incontinence. She has had this symptom for approximately a year. Will do bladder scanning to rule out urinary retention and overflow as an etiology. * Hypothyroidism. Continue levothyroxine. * History of vertigo. Query whether this might have been related to the lenticular nucleus stroke in the past. She did not use meclizine during her hospitalization, but it has been ordered on hospital discharge. She will be observed for recurrence of vertigo, and further evaluation can be done if she has recurrence. * Prophylaxis. Refusing enoxaparin. Aware of risks. Observe for improved mobility. Consider initiating direct oral anticoagulant. 03/13/17 12:28 Subjective: No complaints. Slept well. Refusing enoxaparin. Aware of risks of DVT and pulmonary embolus. Objective: Vital Signs Temp Pulse Resp BP Pulse Ox 37.0 C 55 L 16 182/89 H 94 03/13/17 07:39 03/13/17 07:39 03/13/17 07:39 03/13/17 08:40 03/13/17 07:39 03/12/17 03/13/17 03/14/17 05:59 05:59 05:59 Intake Total 400 420 Output Total 1050 Balance -650 420 Physical Exam - Physical Exam General Appearance: WD/WN, alert, no apparent distress Respiratory: normal breath sounds, No crackles, No rhonchi, No wheezing Cardiac/Chest: regular rate, rhythm, No diastolic murmur, No systolic murmur Skin: normal color, warm/dry Neuro/Psych: alert, normal mood/affect, motor weakness (Left upper extremity) ICD10 Worksheet Patient Problems: Problems Problem Status Onset Stroke Acute
[2017-03-14] MEDS: LEVOTHYROXINE 88 MCG TAB PO SCH (06:19)
[2017-03-14] MEDS: amLODIPine BESYLATE 5 MG TAB PO SCH (08:24)
[2017-03-14] MEDS: ASPIRIN 81 MG CHEWABLE TAB PO SCH (08:24)
[2017-03-14] MEDS: ATORVASTATIN CALCIUM 20 MG TAB PO SCH (08:24)
[2017-03-14] MEDS: MULTIVITAMINS 1 EACH TAB PO SCH (08:24)
--- NOTE | 2017-03-14 09:50 | PDOREHIP ---
Admission [facility] - Admission - 3 Day Assessment Period Admission Date/Day 1: 03/12/17 Day 2: 03/13/17 Day 3: 03/14/17 - Active Diagnoses Comorbidities and Co-existing Conditions at Admission: 79877. None of the Above - Skin Conditions Unhealed Pressure Ulcer (1 or more/Stage 1 or >)-Admission: 0. No
--- NOTE | 2017-03-14 09:55 | SOAPPROG ---
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 Initial functional independence measure 65 on 2016 she has reduced awareness of her deficits. She requires moderate assistance for transfers. She has been able to ambulate 10 feet with a front wheeled walker. She requires moderate assistance for upper body and lower body dressing and for shower continue PT and OT to optimize mobility and activities of daily living. * Secondary stroke prophylaxis. Continue aspirin and atorvastatin. Titrating amlodipine to achieve target BP. * Hypertension. Increase amlodipine from 2.5 to 5 mg p.o. q.day starting afternoon 03/13/2017 as she is post her 48 hour period of permissive hypertension. * Hypoxia at night. Diastolic dysfn on echo in the hospital. Consider CXR, testing BNP. Does not appear fluid overloaded. Continue O2 PRN. * Constipation. She has been on no laxative during her hospital stay. Constipation is likely due to change in activity and not being in her usual circumstances. Adding polyethylene glycol, 03/14/2017. Continue senna and p.r.n. physical. * Urinary incontinence. She has had this symptom for approximately a year. Will do bladder scanning to rule out urinary retention and overflow as an etiology. * Hypothyroidism. Continue levothyroxine. * History of vertigo. Query whether this might have been related to the lenticular nucleus stroke in the past. She did not use meclizine during her hospitalization, but it has been ordered on hospital discharge. She will be observed for recurrence of vertigo, and further evaluation can be done if she has recurrence. * Prophylaxis. Refusing enoxaparin. Low mobility. Start apixaban 2.5 mg p.o. twice daily, 03/14/2017. Attended staffing, 15 minutes. Discussed with case management, dietitian, nursing, PT, OT. Intends to return to independent living and would like to leave on her birthday 03/31/2018. With significant upper and lower extremity and functional deficits at present she may need increased assistance. Set discharge goal of 03/31/2017. 03/14/17 10:47 Subjective: Sleeps better when she has O2 at night then when she doesn't. Never used O2 at home. Not aware of awakening with dyspnea or cough. Reports limitation of ambulation is "no starch" i.e. muscle weakness, not breathing or arthritic pain. Tylenol has not been helpful for pain in the past. She says at home if she needs to drive some where she will take 1 Advil and that helps. Nursing reports she is incontinent of urine which has been an issue for about a year. She has constipation for the past 4 days. Objective: Vital Signs Temp Pulse Resp BP Pulse Ox 36.9 C 61 16 145/78 H 93 03/14/17 06:12 03/14/17 06:12 03/14/17 06:12 03/14/17 08:24 03/14/17 06:12 03/13/17 03/14/17 03/15/17 05:59 05:59 05:59 Intake Total 400 2300 Output Total 1050 1400 Balance -650 900 - Time Spent With Patient Time Spent With Patient: Greater than 35 minutes floor time today, including more than 50% of time in coordination of care during staffing meeting, and counseling patient. Physical Exam - Physical Exam General Appearance: WD/WN, alert, no apparent distress Respiratory: normal breath sounds, No crackles, No rhonchi, No wheezing Cardiac/Chest: regular rate, rhythm, edema (trace - 1+ B LE), No JVD, No diastolic murmur, No systolic murmur Skin: normal color, warm/dry Neuro/Psych: alert, normal mood/affect, oriented x 3 ICD10 Worksheet Patient Problems: Problems Problem Status Onset Stroke Acute
[2017-03-14] MEDS: APIXABAN 2.5 MG TAB PO SCH ×2 (11:05→21:28)
[2017-03-14] MEDS: SENNOSIDES 1 TAB PO PRN (11:05)
[2017-03-14] MEDS: POLYETHYLENE GLYCOL 3350 17 GM PKT PO SCH (11:05)
[2017-03-15] MEDS: LEVOTHYROXINE 88 MCG TAB PO SCH (05:52)
[2017-03-15] MEDS: POLYETHYLENE GLYCOL 3350 17 GM PKT PO SCH (07:42)
[2017-03-15] MEDS: ATORVASTATIN CALCIUM 20 MG TAB PO SCH (07:43)
[2017-03-15] MEDS: APIXABAN 2.5 MG TAB PO SCH ×2 (07:43→20:30)
[2017-03-15] MEDS: MULTIVITAMINS 1 EACH TAB PO SCH (07:43)
[2017-03-15] MEDS: SENNOSIDES 1 TAB PO PRN (07:43)
[2017-03-15] MEDS: amLODIPine BESYLATE 5 MG TAB PO SCH (07:43)
[2017-03-15] MEDS: ASPIRIN 81 MG CHEWABLE TAB PO SCH (07:43)
--- NOTE | 2017-03-15 13:40 | SOAPPROG ---
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 Initial functional independence measure 65 on 2016 she has reduced awareness of her deficits. She requires moderate assistance for transfers. She has been able to ambulate 10 feet with a front wheeled walker. She requires moderate assistance for upper body and lower body dressing and for shower continue PT and OT to optimize mobility and activities of daily living. * Secondary stroke prophylaxis. Continue aspirin and atorvastatin. Titrating amlodipine to achieve target BP. * Hypertension. Increase amlodipine from 2.5 to 5 mg p.o. q.day starting afternoon 03/13/2017 as she is post her 48 hour period of permissive hypertension. With blood pressure elevated at 162/92 this morning 03/15/2017 she may need further titration versus augmentation with another agent. Continue to monitor. * Hypoxia at night. Diastolic dysfn on echo in the hospital. Consider CXR, testing BNP. Does not appear fluid overloaded. Continue O2 PRN. * Constipation. She has been on no laxative during her hospital stay. Constipation is likely due to change in activity and not being in her usual circumstances. Adding polyethylene glycol, 03/14/2017. Continue senna and p.r.n. physical. * Urinary incontinence. She has had this symptom for approximately a year. Will do bladder scanning to rule out urinary retention and overflow as an etiology. * Hypothyroidism. Continue levothyroxine. * History of vertigo. Query whether this might have been related to the lenticular nucleus stroke in the past. She did not use meclizine during her hospitalization, but it has been ordered on hospital discharge. She will be observed for recurrence of vertigo, and further evaluation can be done if she has recurrence. * Prophylaxis. Refusing enoxaparin. Low mobility. Start apixaban 2.5 mg p.o. twice daily, 03/14/2017. Intends to return to independent living and would like to leave on her birthday 03/31/2018. With significant upper and lower extremity and functional deficits at present she may need increased assistance. Set discharge goal of 03/31/2017. 03/15/17 13:37 Subjective: Reports poor sleep last night. She thinks it might be due to how many pills she takes. Otherwise doing well, denies pain, cough, dyspnea, fevers, chills. Objective: Vital Signs Temp Pulse Resp BP Pulse Ox 36.8 C 56 L 16 162/92 H 93 03/15/17 06:49 03/15/17 06:49 03/15/17 06:49 03/15/17 07:43 03/15/17 06:49 03/14/17 03/15/17 03/16/17 05:59 05:59 05:59 Intake Total 2300 2150 770 Output Total 1400 2550 550 Balance 900 -400 220 Physical Exam - Physical Exam General Appearance: WD/WN, alert, no apparent distress Respiratory: No respiratory distress, No accessory muscle use Skin: normal color, warm/dry Neuro/Psych: alert, normal mood/affect, oriented x 3 ICD10 Worksheet Patient Problems: Problems Problem Status Onset Stroke Acute
[2017-03-16] MEDS: LEVOTHYROXINE 88 MCG TAB PO SCH (06:36)
[2017-03-16] MEDS: ASPIRIN 81 MG CHEWABLE TAB PO SCH (08:18)
[2017-03-16] MEDS: amLODIPine BESYLATE 5 MG TAB PO SCH (08:18)
[2017-03-16] MEDS: APIXABAN 2.5 MG TAB PO SCH ×2 (08:18→20:10)
[2017-03-16] MEDS: ATORVASTATIN CALCIUM 20 MG TAB PO SCH (08:18)
[2017-03-16] MEDS: MULTIVITAMINS 1 EACH TAB PO SCH (08:18)
[2017-03-16] MEDS: POLYETHYLENE GLYCOL 3350 17 GM PKT PO SCH (08:19)
[2017-03-16] MEDS ORDERED: amLODIPine BESYLATE 5 MG TAB PO ONE (09:51)
--- NOTE | 2017-03-16 10:55 | SOAPPROG ---
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 Initial functional independence measure 65 on 2016 she has reduced awareness of her deficits. She requires moderate assistance for transfers. She has been able to ambulate 10 feet with a front wheeled walker. She requires moderate assistance for upper body and lower body dressing and for shower continue PT and OT to optimize mobility and activities of daily living. * Secondary stroke prophylaxis. Continue aspirin and atorvastatin. Titrating amlodipine to achieve target BP. * Hypertension. BP above continues target 03/16/17. Further increase amlodipine to 10 mg QD. Increased amlodipine from 2.5 to 5 mg p.o. q.day starting afternoon 03/13/2017 as she is post her 48 hour period of permissive hypertension. She may need augmentation with another agent. Continue to monitor. * Hypoxia at night. Diastolic dysfn on echo in the hospital. Consider CXR, testing BNP. Does not appear fluid overloaded. Continue O2 PRN. * Constipation. She has been on no laxative during her hospital stay. Constipation is likely due to change in activity and not being in her usual circumstances. Adding polyethylene glycol, 03/14/2017. Continue senna and p.r.n. physical. * Urinary incontinence. She has had this symptom for approximately a year. Will do bladder scanning to rule out urinary retention and overflow as an etiology. * Hypothyroidism. Continue levothyroxine. * History of vertigo. Query whether this might have been related to the lenticular nucleus stroke in the past. She did not use meclizine during her hospitalization, but it has been ordered on hospital discharge. She will be observed for recurrence of vertigo, and further evaluation can be done if she has recurrence. * Prophylaxis. Refusing enoxaparin. Low mobility. Start apixaban 2.5 mg p.o. twice daily, 03/14/2017. Intends to return to independent living and would like to leave on her birthday 03/31/2018. With significant upper and lower extremity and functional deficits at present she may need increased assistance. Set discharge goal of 03/31/2017. 03/16/17 10:52 Subjective: No complaints this morning. Feels cold but she says she has felt cold for decades. No chills. No cough, dyspnea, fevers. Has improved use of left lower and left 0 upper extremities. Objective: Vital Signs Temp Pulse Resp BP Pulse Ox 36.7 C 57 L 16 153/78 H 95 03/16/17 06:41 03/16/17 06:41 03/16/17 06:41 03/16/17 10:26 03/16/17 06:41 03/15/17 03/16/17 03/17/17 05:59 05:59 05:59 Intake Total 2150 1750 720 Output Total 2550 1350 300 Balance -400 400 420 Physical Exam - Physical Exam General Appearance: WD/WN, alert, no apparent distress Respiratory: normal breath sounds, No crackles, No rhonchi, No wheezing Cardiac/Chest: regular rate, rhythm, No diastolic murmur, No systolic murmur Skin: normal color, warm/dry Neuro/Psych: alert, normal mood/affect, oriented x 3, motor weakness (LUE demonstrates antigravity strength that shoulder biceps and triceps. Minimal movement at wrist and fingers.) ICD10 Worksheet Patient Problems: Problems Problem Status Onset Stroke Acute
[2017-03-17] MEDS: LEVOTHYROXINE 88 MCG TAB PO SCH (06:24)
[2017-03-17] MEDS: ACETAMINOPHEN 325 MG TAB PO PRN ×2 (08:26→20:56)
[2017-03-17] MEDS: amLODIPine BESYLATE 5 MG TAB PO SCH (08:27)
[2017-03-17] MEDS: APIXABAN 2.5 MG TAB PO SCH ×2 (08:27→20:56)
[2017-03-17] MEDS: MULTIVITAMINS 1 EACH TAB PO SCH (08:28)
[2017-03-17] MEDS: ATORVASTATIN CALCIUM 20 MG TAB PO SCH (08:28)
[2017-03-17] MEDS: ASPIRIN 81 MG CHEWABLE TAB PO SCH (08:28)
[2017-03-17] MEDS: POLYETHYLENE GLYCOL 3350 17 GM PKT PO SCH (08:28)
--- NOTE | 2017-03-17 09:19 | SOAPPROG ---
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 Initial functional independence measure 65 on 2016. She has reduced awareness of her deficits. She requires moderate assistance for transfers. She has been able to ambulate 10 feet with a front wheeled walker, improving. She requires moderate assistance for upper body and lower body dressing and for shower continue PT and OT to optimize mobility and activities of daily living. * Secondary stroke prophylaxis. Continue aspirin and atorvastatin. Titrating amlodipine to achieve target BP. * Hypertension. BP above continues target 03/16/17. Further increase amlodipine to 10 mg QD . Previously increased amlodipine from 2.5 to 5 mg p.o. q.day starting afternoon 03/13/2017 as she was post her 48 hour period of permissive hypertension. She may need augmentation with another agent. Continue to monitor. * Osteoarthritis with knee & ankle pain. Worse with increased activity. Continue acetaminophen. She reports she uses ibuprofen occasionally at home but this is relatively contraindicated with concurrent apixaban and aspirin. Consider tramadol if pain interferes with therapies and/or sleep. Chronic/stable issues: * Hypoxia at night, resolved. Diastolic dysfn on echo in the hospital. Consider CXR, testing BNP. Does not appear fluid overloaded. Continue O2 PRN. * Constipation. She has been on no laxative during her hospital stay. Constipation is likely due to change in activity and not being in her usual circumstances. Adding polyethylene glycol, 03/14/2017. Continue senna and p.r.n. physical. * Urinary incontinence. She has had this symptom for approximately a year. Will do bladder scanning to rule out urinary retention and overflow as an etiology. * Hypothyroidism. Continue levothyroxine. * History of vertigo. Query whether this might have been related to the lenticular nucleus stroke in the past. She did not use meclizine during her hospitalization, but it has been ordered on hospital discharge. She will be observed for recurrence of vertigo, and further evaluation can be done if she has recurrence. * Prophylaxis. Refusing enoxaparin. Low mobility. Start apixaban 2.5 mg p.o. twice daily, 03/14/2017. Intends to return to independent living and would like to leave on her birthday 03/31/2018. With significant upper and lower extremity and functional deficits at present she may need increased assistance. Set discharge goal of 03/31/2017. 03/17/17 09:14 Subjective: Complains of arthritis pain in her knees and ankles. Pain interfered with sleep last night. She was given acetaminophen this morning. No fevers, chills , cough, dyspnea Objective: Vital Signs Temp Pulse Resp BP Pulse Ox 36.5 C 55 L 15 150/80 H 91 L 03/17/17 07:02 03/17/17 07:02 03/17/17 07:02 03/17/17 08:27 03/17/17 07:02 03/16/17 03/17/17 03/18/17 05:59 05:59 05:59 Intake Total 1750 1880 250 Output Total 1350 950 Balance 400 930 250 Physical Exam - Physical Exam General Appearance: WD/WN, alert, no apparent distress, obese Respiratory: No respiratory distress, No accessory muscle use Skin: normal color, warm/dry Extremities: No calf tenderness Neuro/Psych: alert, normal mood/affect, oriented x 3, motor weakness (Left upper extremity greater than left lower extremity) ICD10 Worksheet Patient Problems: Problems Problem Status Onset Stroke Acute
[2017-03-18] MEDS: LEVOTHYROXINE 88 MCG TAB PO SCH (06:21)
[2017-03-18] MEDS: ATORVASTATIN CALCIUM 20 MG TAB PO SCH (09:38)
[2017-03-18] MEDS: MULTIVITAMINS 1 EACH TAB PO SCH (09:38)
[2017-03-18] MEDS: APIXABAN 2.5 MG TAB PO SCH ×2 (09:40→20:16)
[2017-03-18] MEDS: amLODIPine BESYLATE 5 MG TAB PO SCH (09:40)
[2017-03-18] MEDS: POLYETHYLENE GLYCOL 3350 17 GM PKT PO SCH (09:40)
[2017-03-18] MEDS: ASPIRIN 81 MG CHEWABLE TAB PO SCH (09:40)
--- NOTE | 2017-03-18 10:35 | SOAPPROG ---
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 Regarding hypertension, she notes she was typically in the 190s to 200 systolic prior to her stroke and 147/73 is much improved. Amlodipine was just increased, continue to monitor. Regarding her low mood, she feels that is primarily due to her situation, therefore likely adjustment disorder. I did offer fluoxetine both for neural recovery as well as for mood and she will consider it. She normally feels that she is relatively even keel, not particularly high or low mood. She was okay with checking labs for other medical causes of depression, specially given her history of hyperparathyroidism Carey, and hypothyroidism. Other medical causes could include anemia, metabolic disturbances, hypercalcemia , liver disease, endocrinopathies. A total of 40 minutes was spent on the floor in the care of the patient, the majority of which was spent counseling and coordination of care regarding diagnostic and treatment options for low mood , neuro recovery. Also regarding urinary frequency and incontinence, it sounds most consistent with an urge incontinence, has not been responsive to scheduled void, goal to avoid anticholinergics. We will continue to check PVRs 3 more times and monitor as well as try to do schedule voiding as possible. 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 Initial functional independence measure 65 on 2016. She has reduced awareness of her deficits. She requires moderate assistance for transfers. She has been able to ambulate 10 feet with a front wheeled walker, improving. She requires moderate assistance for upper body and lower body dressing and for shower continue PT and OT to optimize mobility and activities of daily living , given her impairments in mobility and self-care. * Secondary stroke prophylaxis. Continue aspirin and atorvastatin. Titrating amlodipine to achieve target BP. * Hypertension. BP above continues target 03/16/17. Further increase amlodipine to 10 mg QD . Previously increased amlodipine from 2.5 to 5 mg p.o. q.day starting afternoon 03/13/2017 as she was post her 48 hour period of permissive hypertension. She may need augmentation with another agent. Continue to monitor. * Osteoarthritis with knee & ankle pain. Worse with increased activity. Continue acetaminophen. She reports she uses ibuprofen occasionally at home but this is relatively contraindicated with concurrent apixaban and aspirin. Consider tramadol if pain interferes with therapies and/or sleep. Chronic/stable issues: * Hypoxia at night, resolved. Diastolic dysfn on echo in the hospital. Consider CXR, testing BNP. Does not appear fluid overloaded. Continue O2 PRN. * Constipation. She has been on no laxative during her hospital stay. Constipation is likely due to change in activity and not being in her usual circumstances. Adding polyethylene glycol, 03/14/2017. Continue senna and p.r.n. physical. * Urinary incontinence. She has had this symptom for approximately a year. Will do bladder scanning to rule out urinary retention and overflow as an etiology. * Hypothyroidism. Continue levothyroxine. * History of vertigo. Query whether this might have been related to the lenticular nucleus stroke in the past. She did not use meclizine during her hospitalization, but it has been ordered on hospital discharge. She will be observed for recurrence of vertigo, and further evaluation can be done if she has recurrence. * Prophylaxis. Refusing enoxaparin. Low mobility. Start apixaban 2.5 mg p.o. twice daily, 03/14/2017. Intends to return to independent living and would like to leave on her birthday [birth year]31/2018. With significant upper and lower extremity and functional deficits at present she may need increased assistance. Set discharge goal of 03/31/2017. 03/18/17 10:30 Subjective: Chief complaint: Low mood, urinary incontinence, hypertension No acute events overnight. Patient denies any shortness of breath or chest pain , no new numbness, tingling, or weakness. She has hypertension today, but notes it is much better than her baseline of systolics around 190-200. Additionally, she endorses a somewhat low mood but feels that this is related to her being in the hospital and away from family and friends rather than anything else. She notes that she has a history of relatively stable mood, not particularly high or low. She endorses a history of hyper parathyroid as well as hypothyroidism. She endorses a variety of supplements that she takes at home. She took CBD in the past and is considering that for treatment of mood and pain as an outpatient. She also endorses urinary frequency and incontinence , but notes that scheduled voids were not particularly helpful. She says that she can urinate 10 minutes after just having urinated and having incontinence without episode. Other time she could go 1 or 2 hours and not have any urine in her bladder. She had a single postvoid residual checked this hospitalization which was low. She has not been on antidepressants in the past , no suicidal ideation. She is open to considering fluoxetine for treatment of neural recovery as well as depression. also, she notes longstanding leg swelling is helped with [employer]ley Tea. Objective: Vital Signs Temp Pulse Resp BP Pulse Ox 36.5 C 107 H 20 135/77 H 90 L 03/18/17 06:51 03/18/17 06:51 03/18/17 06:51 03/18/17 09:40 03/18/17 06:51 03/17/17 03/18/17 03/19/17 05:59 05:59 05:59 Intake Total 1880 1710 354 Output Total 950 800 Balance 930 910 354 Physical Exam - Physical Exam General Appearance: WD/WN, alert, no apparent distress EENT: No scleral icterus (R), No scleral icterus (L) Respiratory: lungs clear, normal breath sounds, No respiratory distress, No accessory muscle use Cardiac/Chest: normal peripheral pulses, regular rate, rhythm, edema ( bilateral lower limb, 2+) Skin: normal color, warm/dry, No cyanosis Extremities: swelling Neuro/Psych: alert, oriented x 3, other ( Left-sided hemiparesis improving, she was able to raise her left arm above her head, fully open her hand with effort, make a fist.), No normal mood/affect ( somewhat low mood, very little tearful at times. Mostly discussing desire to be close to family around birthdays.) ICD10 Worksheet Patient Problems: Problems Problem Status Onset Stroke Acute
[2017-03-18] MEDS: ACETAMINOPHEN 325 MG TAB PO PRN (20:19)
[2017-03-19] MEDS: ACETAMINOPHEN 325 MG TAB PO PRN (01:44)
[2017-03-19] MEDS: LEVOTHYROXINE 88 MCG TAB PO SCH (06:33)
[2017-03-19] MEDS: POLYETHYLENE GLYCOL 3350 17 GM PKT PO SCH (08:09)
[2017-03-19] MEDS: amLODIPine BESYLATE 5 MG TAB PO SCH (08:10)
[2017-03-19] MEDS: ASPIRIN 81 MG CHEWABLE TAB PO SCH (08:10)
[2017-03-19] MEDS: APIXABAN 2.5 MG TAB PO SCH ×2 (08:10→19:51)
[2017-03-19] MEDS: ATORVASTATIN CALCIUM 20 MG TAB PO SCH (08:10)
[2017-03-19] MEDS: MULTIVITAMINS 1 EACH TAB PO SCH (08:10)
[2017-03-19 08:26] LABS: HEMATOCRIT 47.8 % (38.0-47.0); HEMOGLOBIN 15.9 g/dL (12.6-16.3); MEAN CELL HEMOGLOBIN 31.5 pg (27.9-34.1); MEAN CELL HEMOGLOBIN CONCENTR. 33.3 g/dL (32.4-36.7); MEAN CELL VOLUME 94.8 fL (81.5-99.8); RED BLOOD CELL COUNT 5.04 10^6/uL (4.18-5.33); RED CELL DISTRIBUTION WIDTH 13.2 % (11.5-15.2)
[2017-03-19 08:45] LABS: INR 1.07 (0.83-1.16); PROTIME(PATIENT) 13.8 SEC (12.0-15.0)
[2017-03-19 08:50] LABS: ALANINE AMINOTRANSFERASE 27 IU/L (9-52); ALBUMIN 3.8 g/dL (3.5-5.0); ALKALINE PHOSPHATASE 60 IU/L (38-126); ANION GAP 10 mEq/L (8-16); ASPARTATE AMINOTRANSFERASE 18 IU/L (14-46); BILIRUBIN,TOTAL 0.6 mg/dL (0.1-1.4); BILIRUBIN-CONJUGATED 0.2 mg/dL (0.0-0.5); BILIRUBIN-UNCONJUGATED 0.4 mg/dL (0.0-1.1); CALCIUM 10.7 mg/dL (8.5-10.4); CARBON DIOXIDE 27 mEq/l (22-31); CHLORIDE 103 mEq/L (97-110); CREATININE 0.9 mg/dL (0.6-1.0); GLOMERULAR FILTRATION RATE 59; GLUCOSE 83 mg/dL (70-100); MAGNESIUM 2.2 mg/dL (1.6-2.3); POTASSIUM 3.8 mEq/L (3.5-5.2); SODIUM 140 mEq/L (134-144); TOTAL PROTEIN 6.9 g/dL (6.3-8.2)
[2017-03-19 09:06] LABS: VITAMIN D 25-HYDROXY TOTAL 54.7 ng/mL (30.0-100.0)
[2017-03-19 09:16] LABS: COLOR YELLOW; LEUKOCYTE ESTERASE,URINE TRACE (NEGATIVE); NITRITE,URINE NEGATIVE (NEGATIVE)
[2017-03-19 09:22] LABS: BACTERIA TRACE /hpf (NONE SEEN); MUCUS TRACE /lpf (NONE-1+)
--- NOTE | 2017-03-19 11:31 | SOAPPROG ---
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 Initial functional independence measure 65 on 2016. She has reduced awareness of her deficits. She requires moderate assistance for transfers. She was able to ambulate 10 feet with a front wheeled walker, improving to 60' omn 03/18/17. She requires moderate assistance for upper body and lower body dressing and for shower. Continue PT and OT to optimize mobility and activities of daily living. * Secondary stroke prophylaxis. Continue aspirin and atorvastatin. Titrating amlodipine to achieve target BP. * Hypertension. BP continues of above target 03/19/17. Add lisinopril 5 mg QD starting 03/19/17. Increased amlodipine to 10 mg QD . Previously increased amlodipine from 2.5 to 5 mg p.o. q.day starting afternoon 03/13/2017 as she was post her 48 hour period of permissive hypertension. She may need augmentation with another agent. Continue to monitor. * Osteoarthritis with knee & ankle pain. Worse with increased activity. Continue acetaminophen. She reports she uses ibuprofen occasionally at home but this is relatively contraindicated with concurrent apixaban and aspirin. Consider tramadol if pain interferes with therapies and/or sleep. * Labs ordered to evaluate low mood/functional issues/urinary incontinence/ frequency. Urinalysis with weekly positive leukocyte esterase and 3-5 white blood cells. Will go ahead with urine culture the urinary tract infection seems doubtful with no specific seems and normal white blood cell count on CBC. Chronic/stable issues: * Hypoxia at night, resolved. Diastolic dysfn on echo in the hospital. Consider CXR, testing BNP. Does not appear fluid overloaded. Continue O2 PRN. * Constipation. She has been on no laxative during her hospital stay. Constipation is likely due to change in activity and not being in her usual circumstances. Adding polyethylene glycol, 03/14/2017. Continue senna and p.r.n. physical. * Urinary incontinence. She has had this symptom for approximately a year. Will do bladder scanning to rule out urinary retention and overflow as an etiology. * Hypothyroidism. Continue levothyroxine. TSH normal on labs 03/19/2017. * Hyperparathyroidism and hypercalcemia. Most likely stable on labs 03/19/2017, and asymptomatic. * History of vertigo. Query whether this might have been related to the lenticular nucleus stroke in the past. She did not use meclizine during her hospitalization, but it has been ordered on hospital discharge. She will be observed for recurrence of vertigo, and further evaluation can be done if she has recurrence. * Prophylaxis. Refusing enoxaparin. Low mobility. Start apixaban 2.5 mg p.o. twice daily, 03/14/2017. Intends to return to independent living and would like to leave on her birthday [birth year]31[birth year]2017. With significant upper and lower extremity and functional deficits at present she may need increased assistance. Set discharge goal of 03/31/2017. 03/19/17 11:24 Subjective: No complaints. Slept well. Not in pain. She says she is walking further. Has improved use of the left upper extremity with recovery of grasp. Objective: Vital Signs Temp Pulse Resp BP Pulse Ox 36.5 C 58 L 16 152/76 H 94 03/19/17 07:08 03/19/17 07:08 03/19/17 07:08 03/19/17 08:10 03/19/17 07:08 Laboratory Results 03/19/17 07:45 03/19/17 07:45 03/18/17 03/19/17 03/20/17 05:59 05:59 05:59 Intake Total 1710 1814 508 Output Total 800 1500 Balance 910 314 508 PT 13.8 SEC (12.0-15.0) 03/19/17 07:45 INR 1.07 (0.83-1.16) 03/19/17 07:45 Physical Exam - Physical Exam General Appearance: WD/WN, alert, no apparent distress Respiratory: normal breath sounds, No crackles, No rhonchi, No wheezing Cardiac/Chest: regular rate, rhythm, edema (1 - 2 + B LE), No diastolic murmur, No systolic murmur Skin: normal color, warm/dry Neuro/Psych: alert, normal mood/affect, oriented x 3, motor weakness (LUE moves in all planes. Has hand grasp.) ICD10 Worksheet Patient Problems: Problems Problem Status Onset Stroke Acute
[2017-03-19] MEDS: LISINOPRIL 5 MG TAB PO SCH (12:11)
[2017-03-20] MEDS: LEVOTHYROXINE 88 MCG TAB PO SCH (06:13)
[2017-03-20] MEDS: MULTIVITAMINS 1 EACH TAB PO SCH (09:25)
[2017-03-20] MEDS: APIXABAN 2.5 MG TAB PO SCH ×2 (09:26→20:14)
[2017-03-20] MEDS: ASPIRIN 81 MG CHEWABLE TAB PO SCH (09:26)
[2017-03-20] MEDS: ATORVASTATIN CALCIUM 20 MG TAB PO SCH (09:26)
[2017-03-20] MEDS: POLYETHYLENE GLYCOL 3350 17 GM PKT PO SCH (09:26)
[2017-03-20] MEDS: amLODIPine BESYLATE 5 MG TAB PO SCH (09:27)
[2017-03-20] MEDS: LISINOPRIL 5 MG TAB PO SCH (09:28)
--- NOTE | 2017-03-20 10:04 | SOAPPROG ---
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 Calcium was mildly elevated at 10.7 with normal 8.5 -10.4. Patient is not surprised by this result. She is mildly hypertensive 153/80, lisinopril was increased yesterday. Continue to monitor clinically for hypercalcemia symptoms as well as blood pressure following increase of blood pressure medication. Otherwise neurologically improving, continue rehab plan below. A total of 20 minutes was spent on the floor in the care of the patient , the majority of which was spent counseling and coordination of care regarding implications of her test results and next steps. 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 Initial functional independence measure 65 on 2016. She has reduced awareness of her deficits. She requires moderate assistance for transfers. She was able to ambulate 10 feet with a front wheeled walker, improving to 60' omn 03/18/17. She requires moderate assistance for upper body and lower body dressing and for shower. Continue PT and OT to optimize mobility and activities of daily living. * Secondary stroke prophylaxis. Continue aspirin and atorvastatin. Titrating amlodipine to achieve target BP. * Hypertension. BP continues of above target 03/19/17. Added lisinopril 5 mg QD starting 03/19/17. Increased amlodipine to 10 mg QD . Previously increased amlodipine from 2.5 to 5 mg p.o. q.day starting afternoon 03/13/2017 as she was post her 48 hour period of permissive hypertension. She may need augmentation with another agent. Continue to monitor. * Osteoarthritis with knee & ankle pain. Worse with increased activity. Continue acetaminophen. She reports she uses ibuprofen occasionally at home but this is relatively contraindicated with concurrent apixaban and aspirin. Consider tramadol if pain interferes with therapies and/or sleep. * Labs ordered to evaluate low mood/functional issues/urinary incontinence/ frequency. Urinalysis with weekly positive leukocyte esterase and 3-5 white blood cells. Will go ahead with urine culture the urinary tract infection seems doubtful with no specific seems and normal white blood cell count on CBC. Chronic/stable issues: * Hypoxia at night, resolved. Diastolic dysfn on echo in the hospital. Consider CXR, testing BNP. Does not appear fluid overloaded. Continue O2 PRN. * Constipation. She has been on no laxative during her hospital stay. Constipation is likely due to change in activity and not being in her usual circumstances. Adding polyethylene glycol, 03/14/2017. Continue senna and p.r.n. physical. * Urinary incontinence. She has had this symptom for approximately a year. Will do bladder scanning to rule out urinary retention and overflow as an etiology. * Hypothyroidism. Continue levothyroxine. TSH normal on labs 03/19/2017. * Hyperparathyroidism and hypercalcemia. Most likely stable on labs 03/19/2017, and asymptomatic. * History of vertigo. Query whether this might have been related to the lenticular nucleus stroke in the past. She did not use meclizine during her hospitalization, but it has been ordered on hospital discharge. She will be observed for recurrence of vertigo, and further evaluation can be done if she has recurrence. * Prophylaxis. Refusing enoxaparin. Low mobility. Start apixaban 2.5 mg p.o. twice daily, 03/14/2017. Intends to return to independent living and would like to leave on her birthday [birth year]31/2018. With significant upper and lower extremity and functional deficits at present she may need increased assistance. Set discharge goal of 03/31/2017. She plans to have a birthday republican the weekend before discharge, at the hospital. 03/18/17 10:30 03/20/17 10:01 Subjective: Chief complaint: Inquiry about lab results No acute events overnight. Patient endorses no new shortness of breath or chest pain, no new numbness, tingling, or weakness. She is wondering about her lab results which are summarized below, consistent with primary hyperparathyroidism. Ongoing mild hypertension, much lower than her baseline of systolics of 190-200. Otherwise she says things are going well, looking forward to going home, anxious for her birthday as well. Objective: Vital Signs Temp Pulse Resp BP Pulse Ox 36.6 C 59 L 16 137/70 H 93 03/20/17 06:19 03/20/17 06:19 03/19/17 19:48 03/20/17 09:28 03/20/17 06:19 Laboratory Results 03/19/17 07:45 03/19/17 07:45 03/19/17 03/20/17 03/21/17 05:59 05:59 05:59 Intake Total 1814 1166 354 Output Total 1500 300 Balance 314 866 354 PT 13.8 SEC (12.0-15.0) 03/19/17 07:45 INR 1.07 (0.83-1.16) 03/19/17 07:45 Physical Exam - Physical Exam General Appearance: WD/WN, alert, no apparent distress EENT: No scleral icterus (R), No scleral icterus (L) Respiratory: No respiratory distress, No accessory muscle use Cardiac/Chest: normal peripheral pulses, regular rate, rhythm Skin: normal color, warm/dry, No cyanosis, No diaphoresis Neuro/Psych: alert, normal mood/affect, other ( left arm with increasing mobility, now certainly 3+ strength in the finger extensors, 4/5 in the finger flexors.) ICD10 Worksheet Patient Problems: Problems Problem Status Onset Stroke Acute
[2017-03-21] MEDS: LEVOTHYROXINE 88 MCG TAB PO SCH (04:29)
[2017-03-21] MEDS: APIXABAN 2.5 MG TAB PO SCH ×2 (09:05→21:01)
[2017-03-21] MEDS: MULTIVITAMINS 1 EACH TAB PO SCH (09:05)
[2017-03-21] MEDS: ATORVASTATIN CALCIUM 20 MG TAB PO SCH (09:05)
[2017-03-21] MEDS: amLODIPine BESYLATE 5 MG TAB PO SCH (09:06)
[2017-03-21] MEDS: ASPIRIN 81 MG CHEWABLE TAB PO SCH (09:06)
[2017-03-21] MEDS: LISINOPRIL 5 MG TAB PO SCH (09:06)
[2017-03-21] MEDS: POLYETHYLENE GLYCOL 3350 17 GM PKT PO SCH (09:07)
--- NOTE | 2017-03-21 14:13 | SOAPPROG ---
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 Initial functional independence measure 65 on 2016, improved to 77 as of 03/21/2017. Ambulate 60-70 feet with front wheeled walker; loss of balance during gait requiring minimal assist for recovery. Needs assistance with left hand placement on walker. Minimal assist for upper body and lower body dressing. Moderate assist for toileting and showering. She does not want to use compensatory strategies. Continue PT and OT to optimize mobility and activities of daily living. * Secondary stroke prophylaxis. Continue aspirin and atorvastatin. Titrating amlodipine to achieve target BP. * Hypertension. Improving. Med changes 03/19/2017 as BP was above target: added lisinopril 5 mg QD; increased amlodipine to 10 mg QD . Previously increased amlodipine from 2.5 to 5 mg p.o. q.day starting afternoon 03/13/2017 as she was post her 48 hour period of permissive hypertension. She may need augmentation with another agent. Continue to monitor. * Osteoarthritis with knee & ankle pain. Worse with increased activity. Continue acetaminophen. She reports she uses ibuprofen occasionally at home but this is relatively contraindicated with concurrent apixaban and aspirin. Trial of p.r.n. celecoxib starting 03/22/2017. * Labs ordered to evaluate low mood/functional issues/urinary incontinence/ frequency. Urinalysis with weakly positive leukocyte esterase and 3-5 white blood cells but urine culture not consistent with urinary tract infection. Chronic/stable issues: * Hypoxia at night, resolved. Diastolic dysfn on echo in the hospital. Consider CXR, testing BNP. Does not appear fluid overloaded. Continue O2 PRN. * Constipation. She has been on no laxative during her hospital stay. Constipation is likely due to change in activity and not being in her usual circumstances. Adding polyethylene glycol, 03/14/2017. Continue senna and p.r.n. physical. * Urinary incontinence. She has had this symptom for approximately a year. No urinary retention detected with bladder scanning. * Hypothyroidism. Continue levothyroxine. TSH normal on labs 03/19/2017. * Hyperparathyroidism and hypercalcemia. Most likely stable on labs 03/19/2017, and asymptomatic. * History of vertigo. Query whether this might have been related to the lenticular nucleus stroke in the past. She did not use meclizine during her hospitalization, but it has been ordered on hospital discharge. She will be observed for recurrence of vertigo, and further evaluation can be done if she has recurrence. * Prophylaxis. Refusing enoxaparin. Low mobility. Start apixaban 2.5 mg p.o. twice daily, 03/14/2017. Attended staffing, 15 minutes. Discussed with case management, dietitian, nursing, PT, OT. Intends to return to independent living and would like to leave on her birthday 03/31/2018. With significant upper and lower extremity and functional deficits at present she may need increased assistance. Continue discharge goal of 03/31/2017. account manager working with family regarding possible alternative dispositions. 03/21/17 14:07 Subjective: No complaints. Sleeping well. No cough, dyspnea, fevers, chills. No dysuria. Nurses note continued occasional urinary incontinence. Right knee pain limits somewhat her ability to ambulate. Objective: Vital Signs Temp Pulse Resp BP Pulse Ox 36.7 C 59 L 18 143/74 H 93 03/21/17 07:42 03/21/17 07:42 03/21/17 07:42 03/21/17 09:06 03/21/17 07:42 Microbiology 03/19/17 06:00 Urine Culture - Final Urine,Clean Catch Two [place] Types Laboratory Results 03/19/17 07:45 03/19/17 07:45 03/20/17 03/21/17 03/22/17 05:59 05:59 05:59 Intake Total 1166 1302 760 Output Total 300 1550 300 Balance 866 -248 460 PT 13.8 SEC (12.0-15.0) 03/19/17 07:45 INR 1.07 (0.83-1.16) 03/19/17 07:45 - Time Spent With Patient Time Spent With Patient: Greater than 35 minutes floor time today, including more than 50% of time in coordination of care during staffing meeting, and counseling patient. Physical Exam - Physical Exam General Appearance: WD/WN, alert, no apparent distress, obese Respiratory: normal breath sounds, No crackles, No rhonchi, No wheezing Cardiac/Chest: regular rate, rhythm, No diastolic murmur, No systolic murmur Skin: normal color, warm/dry Neuro/Psych: alert, normal mood/affect, oriented x 3, motor weakness (LUE especially at wrist and elbow.) ICD10 Worksheet Patient Problems: Problems Problem Status Onset Stroke Acute
[2017-03-22] MEDS: LEVOTHYROXINE 88 MCG TAB PO SCH (06:19)
[2017-03-22] MEDS: POLYETHYLENE GLYCOL 3350 17 GM PKT PO SCH (08:11)
[2017-03-22] MEDS: APIXABAN 2.5 MG TAB PO SCH ×2 (08:14→21:18)
[2017-03-22] MEDS: ASPIRIN 81 MG CHEWABLE TAB PO SCH (08:14)
[2017-03-22] MEDS: MULTIVITAMINS 1 EACH TAB PO SCH (08:14)
[2017-03-22] MEDS: amLODIPine BESYLATE 5 MG TAB PO SCH (08:14)
[2017-03-22] MEDS: LISINOPRIL 5 MG TAB PO SCH (08:14)
[2017-03-22] MEDS: ATORVASTATIN CALCIUM 20 MG TAB PO SCH (08:14)
--- NOTE | 2017-03-22 10:53 | SOAPPROG ---
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 Initial functional independence measure 65 on 03/14/2017, improved to 77 as of 03/21/2017. Ambulate 60-70 feet with front wheeled walker; loss of balance during gait requiring minimal assist for recovery. Needs assistance with left hand placement on walker. Minimal assist for upper body and lower body dressing. Moderate assist for toileting and showering. She does not want to use compensatory strategies. Continue PT and OT to optimize mobility and activities of daily living. * Secondary stroke prophylaxis. Continue aspirin and atorvastatin. Titrating amlodipine to achieve target BP. * Hypertension. Improving. Med changes 03/19/2017 as BP was above target: added lisinopril 5 mg QD; increased amlodipine to 10 mg QD . Previously increased amlodipine from 2.5 to 5 mg p.o. q.day starting afternoon 03/13/2017 as she was post her 48 hour period of permissive hypertension. 166/ 88 today 03/22, she may need augmentation with another agent. Continue to monitor. Also may see increase BP with celebrex related fluid retention. * Osteoarthritis with knee & ankle pain. Worse with increased activity. Continue acetaminophen. She reports she uses ibuprofen occasionally at home but this is relatively contraindicated with concurrent apixaban and aspirin. Trial of p.r.n. celecoxib starting 03/22/2017. Will monitor response. * Labs ordered to evaluate low mood/functional issues/urinary incontinence/ frequency. Urinalysis with weakly positive leukocyte esterase and 3-5 white blood cells but urine culture (2 colony types) not consistent with urinary tract infection. Chronic/stable issues: * Hypoxia at night, resolved. Diastolic dysfn on echo in the hospital. Consider CXR, testing BNP. Does not appear fluid overloaded. Continue O2 PRN. * Constipation. She has been on no laxative during her hospital stay. Constipation is likely due to change in activity and not being in her usual circumstances. Adding polyethylene glycol, 03/14/2017. Continue senna and p.r.n. physical. * Urinary incontinence. She has had this symptom for approximately a year. No urinary retention detected with bladder scanning. * Hypothyroidism. Continue levothyroxine. TSH normal on labs 03/19/2017. * Hyperparathyroidism and hypercalcemia. Most likely stable on labs 03/19/2017, and asymptomatic. * History of vertigo. Query whether this might have been related to the lenticular nucleus stroke in the past. She did not use meclizine during her hospitalization, but it has been ordered on hospital discharge. She will be observed for recurrence of vertigo, and further evaluation can be done if she has recurrence. * Prophylaxis. Refusing enoxaparin. Low mobility. Start apixaban 2.5 mg p.o. twice daily, 03/14/2017. Plan: Cont Rehab team's current treatment plan 03/22/17 10:50 Subjective: In good spirits, resting comfortably. No new problems or C/O's No F/C/CP/SOB/N/V/D/C Objective: Vital Signs Temp Pulse Resp BP Pulse Ox 36.7 C 83 16 166/88 H 94 03/21/17 18:48 03/21/17 18:48 03/21/17 18:48 03/22/17 08:14 03/21/17 22:39 Microbiology 03/19/17 06:00 Urine Culture - Final Urine,Clean Catch Two [place] Types Laboratory Results 03/19/17 07:45 03/19/17 07:45 03/21/17 03/22/17 03/23/17 05:59 05:59 05:59 Intake Total 1302 1120 360 Output Total 1550 1550 400 Balance -248 -430 -40 PT 13.8 SEC (12.0-15.0) 03/19/17 07:45 INR 1.07 (0.83-1.16) 03/19/17 07:45 Physical Exam - Physical Exam General Appearance: alert, no apparent distress Neck: supple Respiratory: lungs clear Cardiac/Chest: regular rate, rhythm Skin: normal color, warm/dry Extremities: pedal edema, swelling (joints) Neuro/Psych: alert, normal mood/affect, oriented x 3, motor weakness (L hemipareis), other (no acute changes) ICD10 Worksheet Patient Problems: Problems Problem Status Onset Stroke Acute
[2017-03-23] MEDS: LEVOTHYROXINE 88 MCG TAB PO SCH (05:29)
[2017-03-23] MEDS: MULTIVITAMINS 1 EACH TAB PO SCH (08:35)
[2017-03-23] MEDS: ASPIRIN 81 MG CHEWABLE TAB PO SCH (08:35)
[2017-03-23] MEDS: ATORVASTATIN CALCIUM 20 MG TAB PO SCH (08:36)
[2017-03-23] MEDS: APIXABAN 2.5 MG TAB PO SCH ×2 (08:36→21:32)
[2017-03-23] MEDS: LISINOPRIL 5 MG TAB PO SCH (08:36)
[2017-03-23] MEDS: amLODIPine BESYLATE 5 MG TAB PO SCH (08:39)
[2017-03-23] MEDS: POLYETHYLENE GLYCOL 3350 17 GM PKT PO SCH (08:39)
--- NOTE | 2017-03-23 14:02 | SOAPPROG ---
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 Initial functional independence measure 65 on 03/14/2017, improved to 77 as of 03/21/2017. Ambulate 60-70 feet with front wheeled walker; loss of balance during gait requiring minimal assist for recovery. Needs assistance with left hand placement on walker. Minimal assist for upper body and lower body dressing. Moderate assist for toileting and showering. She does not want to use compensatory strategies. Continue PT and OT to optimize mobility and activities of daily living. * Secondary stroke prophylaxis. Continue aspirin and atorvastatin. Titrating amlodipine to achieve target BP. * Hypertension. Improving. Med changes 03/19/2017 as BP was above target: added lisinopril 5 mg QD; increased amlodipine to 10 mg QD . Previously increased amlodipine from 2.5 to 5 mg p.o. q.day starting afternoon 03/13/2017 as she was post her 48 hour period of permissive hypertension. 166/ 88 today 03/22, she may need augmentation with another agent. Continue to monitor. Also may see increase BP with celebrex related fluid retention. * Osteoarthritis with knee & ankle pain. Worse with increased activity. Continue acetaminophen. She reports she uses ibuprofen occasionally at home but this is relatively contraindicated with concurrent apixaban and aspirin. Trial of p.r.n. celecoxib starting 03/22/2017. Will monitor response. * Labs ordered to evaluate low mood/functional issues/urinary incontinence/ frequency. Urinalysis with weakly positive leukocyte esterase and 3-5 white blood cells but urine culture (2 colony types) not consistent with urinary tract infection. Chronic/stable issues: * Hypoxia at night, resolved. Diastolic dysfn on echo in the hospital. Consider CXR, testing BNP. Does not appear fluid overloaded. Continue O2 PRN. * Constipation. She has been on no laxative during her hospital stay. Constipation is likely due to change in activity and not being in her usual circumstances. Adding polyethylene glycol, 03/14/2017. Continue senna and p.r.n. physical. * Urinary incontinence. She has had this symptom for approximately a year. No urinary retention detected with bladder scanning. * Hypothyroidism. Continue levothyroxine. TSH normal on labs 03/19/2017. * Hyperparathyroidism and hypercalcemia. Most likely stable on labs 03/19/2017, and asymptomatic. * History of vertigo. Query whether this might have been related to the lenticular nucleus stroke in the past. She did not use meclizine during her hospitalization, but it has been ordered on hospital discharge. She will be observed for recurrence of vertigo, and further evaluation can be done if she has recurrence. * Prophylaxis. Refusing enoxaparin. Low mobility. Start apixaban 2.5 mg p.o. twice daily, 03/14/2017. Plan: Cont Rehab team's current treatment plan 03/23/17 14:00 Subjective: In good spirits Seen in company of Daughter Eager for discharge home No new problems or C/O's Objective: Vital Signs Temp Pulse Resp BP Pulse Ox 36.7 C 53 L 16 168/82 H 91 L 03/23/17 06:37 03/23/17 06:37 03/23/17 06:37 03/23/17 08:39 03/23/17 06:37 Laboratory Results 03/19/17 07:45 03/19/17 07:45 03/22/17 03/23/17 03/24/17 05:59 05:59 05:59 Intake Total 1120 1930 360 Output Total 1550 1100 Balance -430 830 360 PT 13.8 SEC (12.0-15.0) 03/19/17 07:45 INR 1.07 (0.83-1.16) 03/19/17 07:45 Physical Exam - Physical Exam General Appearance: alert, no apparent distress Neck: supple Respiratory: lungs clear Cardiac/Chest: regular rate, rhythm Skin: normal color, warm/dry Extremities: pedal edema (chronic changes) Neuro/Psych: alert, normal mood/affect, oriented x 3, motor weakness, sensory deficit, other (no acute changes) ICD10 Worksheet Patient Problems: Problems Problem Status Onset Stroke Acute
[2017-03-24] MEDS: LEVOTHYROXINE 88 MCG TAB PO SCH (04:38)
[2017-03-24] MEDS: APIXABAN 2.5 MG TAB PO SCH ×2 (09:58→21:40)
[2017-03-24] MEDS: LISINOPRIL 5 MG TAB PO SCH (09:58)
[2017-03-24] MEDS: MULTIVITAMINS 1 EACH TAB PO SCH (09:58)
[2017-03-24] MEDS: ATORVASTATIN CALCIUM 20 MG TAB PO SCH (09:58)
[2017-03-24] MEDS: ASPIRIN 81 MG CHEWABLE TAB PO SCH (09:58)
[2017-03-24] MEDS: amLODIPine BESYLATE 5 MG TAB PO SCH (10:00)
[2017-03-24] MEDS: POLYETHYLENE GLYCOL 3350 17 GM PKT PO SCH (10:45)
--- NOTE | 2017-03-24 11:49 | SOAPPROG ---
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 Initial functional independence measure 65 on 2016, improved to 77 as of 03/21/2017. Ambulated 60-70 feet with front wheeled walker; loss of balance during gait requiring minimal assist for recovery. Needs assistance with left hand placement on walker. Minimal assist for upper body and lower body dressing. Moderate assist for toileting and showering. She does not want to use compensatory strategies. Continue PT and OT to optimize mobility and activities of daily living. * Secondary stroke prophylaxis. Continue aspirin and atorvastatin. Adjusting medications to achieve target BP. * Hypertension. Improving. Increase lisinopril from 5 minutes g q.day to 10 mg q.day starting 03/25/2017. Med changes 03/19/2017 as BP was above target: added lisinopril 5 mg QD; increased amlodipine to 10 mg QD . Previously increased amlodipine from 2.5 to 5 mg p.o. q.day starting afternoon 03/13/2017 as she was post her 48 hour period of permissive hypertension. She may need augmentation with another agent. Continue to monitor. * Osteoarthritis with knee & ankle pain. Worse with increased activity. Continue acetaminophen. She reports she uses ibuprofen occasionally at home but this is relatively contraindicated with concurrent apixaban and aspirin. Improved with celecoxib starting 03/22/2017. * Labs ordered to evaluate low mood/functional issues/urinary incontinence/ frequency. Urinalysis with weakly positive leukocyte esterase and 3-5 white blood cells but urine culture not consistent with urinary tract infection. Chronic/stable issues: * Hypoxia at night, resolved. Diastolic dysfn on echo in the hospital. Consider CXR, testing BNP. Does not appear fluid overloaded. Continue O2 PRN. * Constipation. She has been on no laxative during her hospital stay. Constipation is likely due to change in activity and not being in her usual circumstances. Adding polyethylene glycol, 03/14/2017. Continue senna and p.r.n. * Urinary incontinence. She has had this symptom for approximately a year. No urinary retention detected with bladder scanning. * Hypothyroidism. Continue levothyroxine. TSH normal on labs 03/19/2017. * Hyperparathyroidism and hypercalcemia. Most likely stable on labs 03/19/2017, and asymptomatic. * History of vertigo. Query whether this might have been related to the lenticular nucleus stroke in the past. She did not use meclizine during her hospitalization, but it has been ordered on hospital discharge. She will be observed for recurrence of vertigo, and further evaluation can be done if she has recurrence. * Prophylaxis. Refusing enoxaparin. Low mobility. Start apixaban 2.5 mg p.o. twice daily, 03/14/2017. Intends to return to independent living and would like to leave on her birthday 03/31/2018. With significant upper and lower extremity and functional deficits at present she may need increased assistance. Continue discharge goal of 2016. plant production manager working with family regarding possible alternative dispositions. 03/24/17 11:34 Subjective: No complaints this morning. Knee pain is better with Celebrex though per PT notes ambulation continues to be limited both by fatigue and knee pain. She reports that she learned that she was getting so a in her muffins which she thinks was contributing to fecal urgency. She has not had incontinence however. Objective: Vital Signs Temp Pulse Resp BP Pulse Ox 36.4 C 52 L 20 147/79 H 92 03/24/17 08:00 03/24/17 08:00 03/24/17 08:00 03/24/17 10:00 03/24/17 08:00 Laboratory Results 03/19/17 07:45 03/19/17 07:45 03/23/17 03/24/17 03/25/17 05:59 05:59 05:59 Intake Total 1930 740 720 Output Total 1100 950 Balance 830 -210 720 PT 13.8 SEC (12.0-15.0) 03/19/17 07:45 INR 1.07 (0.83-1.16) 03/19/17 07:45 Physical Exam - Physical Exam General Appearance: WD/WN, alert, no apparent distress, obese Respiratory: normal breath sounds, No crackles, No rhonchi, No wheezing Cardiac/Chest: regular rate, rhythm, No diastolic murmur, No systolic murmur Skin: normal color, warm/dry Neuro/Psych: alert, normal mood/affect, oriented x 3, motor weakness (LUE moves in all planes. Handgrip weak. Has ataxia re placement on walker.) ICD10 Worksheet Patient Problems: Problems Problem Status Onset Stroke Acute
[2017-03-25] MEDS: LEVOTHYROXINE 88 MCG TAB PO SCH (04:49)
[2017-03-25] MEDS: amLODIPine BESYLATE 5 MG TAB PO SCH (08:52)
[2017-03-25] MEDS: ASPIRIN 81 MG CHEWABLE TAB PO SCH (08:53)
[2017-03-25] MEDS: LISINOPRIL 5 MG TAB PO SCH (08:53)
[2017-03-25] MEDS: MULTIVITAMINS 1 EACH TAB PO SCH (08:54)
[2017-03-25] MEDS: ATORVASTATIN CALCIUM 20 MG TAB PO SCH (08:54)
[2017-03-25] MEDS: APIXABAN 2.5 MG TAB PO SCH ×2 (08:54→20:33)
[2017-03-25] MEDS: POLYETHYLENE GLYCOL 3350 17 GM PKT PO SCH (09:48)
--- NOTE | 2017-03-25 10:37 | SOAPPROG ---
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 For description from physical therapy, it sounds like there is a behavioral component as the patient is able to recover with some coaching and has not had any falls, it appears that it is due to sudden onset of weakness in the legs. Does not appear to be associated with pain or other symptoms, and the patient does not endorse other exacerbating factors. Discussed with social media assistant as well as physical therapy that the patient's goals may not be consistent with our goals of independent living on discharge and she may be okay with discharge home with a wheelchair mobility level as well as caregiver assistance at home. Plan to investigate further. No current changes to discharge plan. A total of 35 minutes was spent on the floor in the care of the patient, the majority of which was spent counseling and coordination of care regarding assessment of sudden paroxysmal functional weakness and discussion with therapists and social workers. Additionally, she continues to have some reported diarrhea that she associates with so a that was present in some of her food. 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 Initial functional independence measure 65 on 2016, improved to 77 as of 03/21/2017. Ambulated 60-70 feet with front wheeled walker; loss of balance during gait requiring minimal assist for recovery. Needs assistance with left hand placement on walker. Minimal assist for upper body and lower body dressing. Moderate assist for toileting and showering. She does not want to use compensatory strategies. Continue PT and OT to optimize mobility and activities of daily living. * Sudden functional impairment in mobility, paroxysmal: Unclear etiology, could be related to pain and osteoarthritis of the knee. Sounds like it was also premorbid comma preceding the stroke, but could be related to neurological weakness or motor control. It does seem to have a behavioral component based on description by physical therapy. Also the patient endorses a low level of desire to be independent with a walker on discharge and this could be a functional overlay as well. * Secondary stroke prophylaxis. Continue aspirin and atorvastatin. Adjusting medications to achieve target BP. * Hypertension. Improving. Increase lisinopril from 5 minutes g q.day to 10 mg q.day starting 03/25/2017. Med changes 03/19/2017 as BP was above target: added lisinopril 5 mg QD; increased amlodipine to 10 mg QD . Previously increased amlodipine from 2.5 to 5 mg p.o. q.day starting afternoon 03/13/2017 as she was post her 48 hour period of permissive hypertension. She may need augmentation with another agent. Continue to monitor. * Osteoarthritis with knee & ankle pain. Worse with increased activity. Continue acetaminophen. She reports she uses ibuprofen occasionally at home but this is relatively contraindicated with concurrent apixaban and aspirin. Improved with celecoxib starting 03/22/2017. * Labs ordered to evaluate low mood/functional issues/urinary incontinence/ frequency. Urinalysis with weakly positive leukocyte esterase and 3-5 white blood cells but urine culture not consistent with urinary tract infection. * Reported diarrhea: Avoid soy a containing food products, monitor clinically. Chronic/stable issues: * Hypoxia at night, resolved. Diastolic dysfn on echo in the hospital. Consider CXR, testing BNP. Does not appear fluid overloaded. Continue O2 PRN. * Constipation. She has been on no laxative during her hospital stay. Constipation is likely due to change in activity and not being in her usual circumstances. Adding polyethylene glycol, 03/14/2017. Continue senna and p.r.n. * Urinary incontinence. She has had this symptom for approximately a year. No urinary retention detected with bladder scanning. * Hypothyroidism. Continue levothyroxine. TSH normal on labs 03/19/2017. * Hyperparathyroidism and hypercalcemia. Most likely stable on labs 03/19/2017, and asymptomatic. * History of vertigo. Query whether this might have been related to the lenticular nucleus stroke in the past. She did not use meclizine during her hospitalization, but it has been ordered on hospital discharge. She will be observed for recurrence of vertigo, and further evaluation can be done if she has recurrence. * Prophylaxis. Refusing enoxaparin. Low mobility. Start apixaban 2.5 mg p.o. twice daily, 03/14/2017. Intends to return to independent living and would like to leave on her birthday 03/31/2018. With significant upper and lower extremity and functional deficits at present she may need increased assistance. Continue discharge goal of 2016. photo manager working with family regarding possible alternative dispositions. 03/18/17 10:30 03/20/17 10:01 03/25/17 10:33 Subjective: Chief complaint: Fear of falling and sudden functional weakness No acute events overnight. Patient denies any shortness of breath or chest pain , no new numbness, tingling, or weakness. She endorses sudden episodes of functional weakness that she cannot predicting does not associated with any particular activities, fatigue level, or pain. She states that these started occurring before she had her stroke, and relays an episode where she fell in a grocery store with sudden leg weakness, but on revision of her story she does not did not actually fall but was a near fall. This is consistent with also what the physical therapist reported to me today where she would suddenly feel weak and demand to sit down, but has not had any falls. It does not appear to be a description of give-way weakness, but rather sudden functional weakness with the need to sit down. Because of this, she does not want to use a front wheel walker to get to the toilet but would rather use a wheelchair. She also endorsed that she was planning to use a wheelchair at home and to hire a caregiver for assistance and had no intention of using a walker when she discharges. Objective: Vital Signs Temp Pulse Resp BP Pulse Ox 36.4 C 62 16 132/76 H 91 L 03/25/17 05:57 03/25/17 05:57 03/25/17 05:57 03/25/17 08:53 03/25/17 05:57 Laboratory Results 03/19/17 07:45 03/19/17 07:45 03/24/17 03/25/17 03/26/17 05:59 05:59 05:59 Intake Total 740 2230 240 Output Total 950 800 Balance -210 1430 240 PT 13.8 SEC (12.0-15.0) 03/19/17 07:45 INR 1.07 (0.83-1.16) 03/19/17 07:45 Physical Exam - Physical Exam General Appearance: WD/WN, alert, no apparent distress Respiratory: No accessory muscle use, No decreased breath sounds Cardiac/Chest: regular rate, rhythm, edema (Similar 2+ bilateral lower extremity edema) Skin: normal color, warm/dry, No cyanosis Extremities: non-tender Neuro/Psych: alert, normal mood/affect, oriented x 3 (Left arm continues to be weak, 1/5 strength in finger abductors on the left, 4/5 strength in finger flexors, able to raise arm against antigravity at least, not tested further. Ankle dorsiflexion and bilateral ankles are 4/5) ICD10 Worksheet Patient Problems: Problems Problem Status Onset Stroke Acute
[2017-03-26] MEDS: LEVOTHYROXINE 88 MCG TAB PO SCH (05:57)
[2017-03-26] MEDS: amLODIPine BESYLATE 5 MG TAB PO SCH (08:22)
[2017-03-26] MEDS: APIXABAN 2.5 MG TAB PO SCH ×2 (08:22→20:07)
[2017-03-26] MEDS: ATORVASTATIN CALCIUM 20 MG TAB PO SCH (08:23)
[2017-03-26] MEDS: LISINOPRIL 5 MG TAB PO SCH ×2 (08:23→20:09)
[2017-03-26] MEDS: MULTIVITAMINS 1 EACH TAB PO SCH (08:23)
[2017-03-26] MEDS: POLYETHYLENE GLYCOL 3350 17 GM PKT PO SCH (08:23)
[2017-03-26] MEDS: ASPIRIN 81 MG CHEWABLE TAB PO SCH (08:23)
--- NOTE | 2017-03-26 12:15 | SOAPPROG ---
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 Initial functional independence measure 65 on 2016, improved to 77 as of 03/21/2017, and to 84 as of 03/26/2017. Ambulated 60- 90 feet with front wheeled walker standby assist to contact guard assist; occasional loss of balance related to left foot placement with spontaneous recovery. Needs assistance with left hand placement on walker. Minimal to moderate assist for upper body and lower body dressing. Moderate assist for toileting and showering. She does not want to use compensatory strategies. Continue PT and OT to optimize mobility and activities of daily living. * Secondary stroke prophylaxis. Continue aspirin and atorvastatin. Adjusting medications to achieve target BP. * Hypertension. Improving. BP elevated later in the day. Change lisinopril to 10 mg BID starting 03/26/17. Increased lisinopril from 5 minutes g q.day to 10 mg q.day starting 03/25/2017. Med changes 03/19/2017 as BP was above target: added lisinopril 5 mg QD; increased amlodipine to 10 mg QD . Previously increased amlodipine from 2.5 to 5 mg p.o. q.day starting afternoon 03/13/2017 as she was post her 48 hour period of permissive hypertension. She may need augmentation with another agent. Continue to monitor. * Osteoarthritis with knee & ankle pain. Improved with celecoxib starting 03/22. Worse with increased activity. Continue acetaminophen. She reports she uses ibuprofen occasionally at home but this is relatively contraindicated with concurrent apixaban and aspirin. * Labs ordered to evaluate low mood/functional issues/urinary incontinence/ frequency. Urinalysis with weakly positive leukocyte esterase and 3-5 white blood cells but urine culture not consistent with urinary tract infection. Chronic/stable issues: * Hypoxia at night, resolved. Diastolic dysfn on echo in the hospital. Consider CXR, testing BNP. Does not appear fluid overloaded. Continue O2 PRN. * Constipation. She has been on no laxative during her hospital stay. Constipation is likely due to change in activity and not being in her usual circumstances. Adding polyethylene glycol, 03/14/2017. Continue senna and p.r.n. * Urinary incontinence. She has had this symptom for approximately a year. No urinary retention detected with bladder scanning. * Hypothyroidism. Continue levothyroxine. TSH normal on labs 03/19/2017. * Hyperparathyroidism and hypercalcemia. Most likely stable on labs 03/19/2017, and asymptomatic. * History of vertigo. Query whether this might have been related to the lenticular nucleus stroke in the past. She did not use meclizine during her hospitalization, but it has been ordered on hospital discharge. She will be observed for recurrence of vertigo, and further evaluation can be done if she has recurrence. * Prophylaxis. Refusing enoxaparin. Low mobility. Start apixaban 2.5 mg p.o. twice daily, 03/14/2017. Attended staffing, 15 minutes. Discussed with case management, dietitian, nursing, PT, OT, OPERATIONS REPRESENTATIVE. Attendant family conference, 30 minutes, patient and 3 daughters present. Intends to return to independent living and would like to leave on her birthday 03/31/2018. Refusing consideration of SNF discharge for more time in therapy. Intends to hire help at home if needed but upon discussion with daughters she is not aware of how much this would cost and cost is probably prohibitive. Continue discharge goal of 03/31/2017. merchandise planning manager to continue working with patient and family regarding possible alternative dispositions. 03/26/17 12:02 Subjective: No complaints. Sleeping well. No cough, dyspnea, fevers, chills. Reports that celecoxib has helped her knee pain and wonders if it is also doing anything for her urinary incontinence. She did not take it this morning however. She continues to express her goal to return home to independent living. Objective: Vital Signs Temp Pulse Resp BP Pulse Ox 36.6 C 62 16 161/88 H 94 03/26/17 07:20 03/26/17 07:20 03/26/17 07:20 03/26/17 08:23 03/26/17 07:20 Laboratory Results 03/19/17 07:45 03/19/17 07:45 03/25/17 03/26/17 03/27/17 05:59 05:59 05:59 Intake Total 2230 838 500 Output Total 800 900 Balance 1430 -62 500 PT 13.8 SEC (12.0-15.0) 03/19/17 07:45 INR 1.07 (0.83-1.16) 03/19/17 07:45 - Time Spent With Patient Time Spent With Patient: Greater than 35 minutes floor time today, including more than 50% of time in coordination of care during staffing meeting and counseling patient and family during family meeting. Physical Exam - Physical Exam General Appearance: WD/WN, alert, no apparent distress, obese Respiratory: No respiratory distress, No accessory muscle use Skin: normal color, warm/dry Neuro/Psych: alert, normal mood/affect, oriented x 3, abnormal gait (Ambulates with a step through pattern using a front wheeled walker accompanied by Physical therapy.), motor weakness (LUE) ICD10 Worksheet Patient Problems: Problems Problem Status Onset Stroke Acute
[2017-03-27] MEDS: LEVOTHYROXINE 88 MCG TAB PO SCH (05:30)
--- NOTE | 2017-03-27 08:52 | SOAPPROG ---
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 Continuing to participate in therapies, but can be obstinate at times. Continue rehab plan below. 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 Initial functional independence measure 65 on 2016, improved to 77 as of 03/21/2017, and to 84 as of 03/26/2017. Ambulated 60- 90 feet with front wheeled walker standby assist to contact guard assist; occasional loss of balance related to left foot placement with spontaneous recovery. Needs assistance with left hand placement on walker. Minimal to moderate assist for upper body and lower body dressing. Moderate assist for toileting and showering. She does not want to use compensatory strategies. Continue PT and OT to optimize mobility and activities of daily living. * Secondary stroke prophylaxis. Continue aspirin and atorvastatin. Adjusting medications to achieve target BP. * Hypertension. Improving. BP elevated later in the day. Change lisinopril to 10 mg BID starting 03/26/17. Increased lisinopril from 5 minutes g q.day to 10 mg q.day starting 03/25/2017. Med changes 03/19/2017 as BP was above target: added lisinopril 5 mg QD; increased amlodipine to 10 mg QD . Previously increased amlodipine from 2.5 to 5 mg p.o. q.day starting afternoon 03/13/2017 as she was post her 48 hour period of permissive hypertension. She may need augmentation with another agent. Continue to monitor. * Osteoarthritis with knee & ankle pain. Improved with celecoxib starting 03/22. Worse with increased activity. Continue acetaminophen. She reports she uses ibuprofen occasionally at home but this is relatively contraindicated with concurrent apixaban and aspirin. * Labs ordered to evaluate low mood/functional issues/urinary incontinence/ frequency. Urinalysis with weakly positive leukocyte esterase and 3-5 white blood cells but urine culture not consistent with urinary tract infection. Chronic/stable issues: * Hypoxia at night, resolved. Diastolic dysfn on echo in the hospital. Consider CXR, testing BNP. Does not appear fluid overloaded. Continue O2 PRN. * Constipation. She has been on no laxative during her hospital stay. Constipation is likely due to change in activity and not being in her usual circumstances. Adding polyethylene glycol, 03/14/2017. Continue senna and p.r.n. * Urinary incontinence. She has had this symptom for approximately a year. No urinary retention detected with bladder scanning. * Hypothyroidism. Continue levothyroxine. TSH normal on labs 03/19/2017. * Hyperparathyroidism and hypercalcemia. Most likely stable on labs 03/19/2017, and asymptomatic. * History of vertigo. Query whether this might have been related to the lenticular nucleus stroke in the past. She did not use meclizine during her hospitalization, but it has been ordered on hospital discharge. She will be observed for recurrence of vertigo, and further evaluation can be done if she has recurrence. * Prophylaxis. Refusing enoxaparin. Low mobility. Start apixaban 2.5 mg p.o. twice daily, 03/14/2017. Intends to return to independent living and would like to leave on her birthday 03/31/2018. Refusing consideration of SNF discharge for more time in therapy. Intends to hire help at home if needed but upon discussion with daughters she is not aware of how much this would cost and cost is probably prohibitive. Discharge 04/02 (extension). customer advocacy manager to continue working with patient and family regarding possible alternative dispositions. 03/18/17 10:30 03/20/17 10:01 03/25/17 10:33 03/27/17 08:49 Subjective: CC: Hypertension Blood pressure improved today, no new CP/ SOB/ or any new numbness, tingling, or weakness. No headache. Participating with therapies, but will self-direct care at times. She endorses that things are going well, no concerns today. Objective: Vital Signs Temp Pulse Resp BP Pulse Ox 36.6 C 61 16 140/75 H 94 03/27/17 07:41 03/27/17 07:41 03/27/17 07:41 03/27/17 07:41 03/27/17 07:41 Laboratory Results 03/19/17 07:45 03/19/17 07:45 03/26/17 03/27/17 03/28/17 05:59 05:59 05:59 Intake Total 838 1598 Output Total 900 700 Balance -62 898 PT 13.8 SEC (12.0-15.0) 03/19/17 07:45 INR 1.07 (0.83-1.16) 03/19/17 07:45 Physical Exam - Physical Exam General Appearance: WD/WN, alert, no apparent distress EENT: No scleral icterus (R), No scleral icterus (L) Respiratory: No respiratory distress, No accessory muscle use Cardiac/Chest: regular rate, rhythm, edema (2+ BLE) Abdomen: non-tender, soft Skin: normal color, warm/dry, No cyanosis Neuro/Psych: alert, normal mood/affect, oriented x 3, motor weakness (Left shana ) ICD10 Worksheet Patient Problems: Problems Problem Status Onset Stroke Acute
[2017-03-27] MEDS: POLYETHYLENE GLYCOL 3350 17 GM PKT PO SCH (10:26)
[2017-03-27] MEDS: ATORVASTATIN CALCIUM 20 MG TAB PO SCH (10:27)
[2017-03-27] MEDS: APIXABAN 2.5 MG TAB PO SCH ×2 (10:27→20:19)
[2017-03-27] MEDS: MULTIVITAMINS 1 EACH TAB PO SCH (10:27)
[2017-03-27] MEDS: LISINOPRIL 5 MG TAB PO SCH ×2 (10:27→20:20)
[2017-03-27] MEDS: amLODIPine BESYLATE 5 MG TAB PO SCH (10:28)
[2017-03-27] MEDS: ASPIRIN 81 MG CHEWABLE TAB PO SCH (10:28)
[2017-03-28] MEDS: LEVOTHYROXINE 88 MCG TAB PO SCH (03:45)
[2017-03-28] MEDS: ASPIRIN 81 MG CHEWABLE TAB PO SCH (09:07)
[2017-03-28] MEDS: APIXABAN 2.5 MG TAB PO SCH ×2 (09:08→20:25)
[2017-03-28] MEDS: ATORVASTATIN CALCIUM 20 MG TAB PO SCH (09:08)
[2017-03-28] MEDS: amLODIPine BESYLATE 5 MG TAB PO SCH (09:08)
[2017-03-28] MEDS: MULTIVITAMINS 1 EACH TAB PO SCH (09:08)
[2017-03-28] MEDS: LISINOPRIL 5 MG TAB PO SCH ×2 (09:08→20:25)
[2017-03-28] MEDS: POLYETHYLENE GLYCOL 3350 17 GM PKT PO SCH (09:25)
--- NOTE | 2017-03-28 12:14 | SOAPPROG ---
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 Initial functional independence measure 65 on 2016, improved to 77 as of 03/21/2017, and to 84 as of 03/26/2017. Ambulated 60- 90 feet with front wheeled walker standby assist to contact guard assist; occasional loss of balance related to left foot placement with spontaneous recovery. Needs assistance with left hand placement on walker. Minimal to moderate assist for upper body and lower body dressing. Moderate assist for toileting and showering. She does not want to use compensatory strategies. Continue PT and OT to optimize mobility and activities of daily living. * Secondary stroke prophylaxis. Continue aspirin and atorvastatin. Adjusting medications to achieve target BP. * Hypertension. Adequate control on lisinopril to 10 mg BID starting 03/26/17 and amlodipine 10 mg q.day. Prior medication changes: increased lisinopril from 5 minutes g q.day to 10 mg q.day starting 03/25/2017. Med changes 2016 as BP was above target: added lisinopril 5 mg QD; increased amlodipine to 10 mg QD . Previously increased amlodipine from 2.5 to 5 mg p.o. q.day starting afternoon 03/13/2017 as she was post her 48 hour period of permissive hypertension. Continue to monitor. * Osteoarthritis with knee & ankle pain. Improved with celecoxib starting 03/22. Worse with increased activity. Continue acetaminophen. She reports she uses ibuprofen occasionally at home but this is relatively contraindicated with concurrent apixaban and aspirin. Chronic/stable issues: * Labs ordered to evaluate low mood/functional issues/urinary incontinence/ frequency. Urinalysis with weakly positive leukocyte esterase and 3-5 white blood cells but urine culture not consistent with urinary tract infection. * Hypoxia at night, resolved. Diastolic dysfn on echo in the hospital. Consider CXR, testing BNP. Does not appear fluid overloaded. Continue O2 PRN. * Constipation. She has been on no laxative during her hospital stay. Constipation is likely due to change in activity and not being in her usual circumstances. Adding polyethylene glycol, 03/14/2017. Continue senna and p.r.n. * Urinary incontinence. She has had this symptom for approximately a year. No urinary retention detected with bladder scanning. * Hypothyroidism. Continue levothyroxine. TSH normal on labs 03/19/2017. * Hyperparathyroidism and hypercalcemia. Most likely stable on labs 03/19/2017, and asymptomatic. * History of vertigo. Query whether this might have been related to the lenticular nucleus stroke in the past. She did not use meclizine during her hospitalization, but it has been ordered on hospital discharge. She will be observed for recurrence of vertigo, and further evaluation can be done if she has recurrence. * Prophylaxis. Refusing enoxaparin. Low mobility. Start apixaban 2.5 mg p.o. twice daily, 03/14/2017. Intends to return to independent living and wanted to leave on her birthday 03/31 but accepting later discharge. Will have past to go home for birthday celebration on FridayMarch 30. Refusing consideration of SNF discharge for more time in therapy. Intends to hire help at home if needed but upon discussion with daughters she is not aware of how much this would cost and cost is probably prohibitive. Discharge goal of 04/02/2017. adult care manager to continue working with patient and family regarding possible alternative dispositions. 03/28/17 12:10 Subjective: No complaints. Slept well. Adequate pain control with celecoxib. Walking farther. No cough, dyspnea, fevers, chills. Objective: Vital Signs Temp Pulse Resp BP Pulse Ox 36.5 C 59 L 15 133/69 H 94 03/28/17 07:27 03/28/17 07:27 03/28/17 07:27 03/28/17 09:08 03/28/17 07:27 Laboratory Results 03/19/17 07:45 03/19/17 07:45 03/27/17 03/28/17 03/29/17 05:59 05:59 05:59 Intake Total 1598 700 708 Output Total 700 600 300 Balance 898 100 408 PT 13.8 SEC (12.0-15.0) 03/19/17 07:45 INR 1.07 (0.83-1.16) 03/19/17 07:45 Physical Exam - Physical Exam General Appearance: WD/WN, alert, no apparent distress Respiratory: normal breath sounds, No crackles, No rhonchi, No wheezing Cardiac/Chest: regular rate, rhythm, No diastolic murmur, No systolic murmur Skin: normal color, warm/dry Neuro/Psych: alert, normal mood/affect, oriented x 3, motor weakness (Ataxic left hand.) ICD10 Worksheet Patient Problems: Problems Problem Status Onset Stroke Acute
[2017-03-28 19:42] VITALS: RESP 16
[2017-03-29] MEDS: LEVOTHYROXINE 88 MCG TAB PO SCH (05:37)
--- NOTE | 2017-03-29 08:25 | SOAPPROG ---
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 Continue PT and OT to optimize mobility and activities of daily living. * Secondary stroke prophylaxis. Continue aspirin and atorvastatin. Adjusting medications to achieve target BP. * Hypertension. Adequate control on lisinopril to 10 mg BID starting 03/26/17 and amlodipine 10 mg q.day. Prior medication changes: increased lisinopril from 5 minutes g q.day to 10 mg q.day starting 03/25/2017. Med changes 2016 as BP was above target: added lisinopril 5 mg QD; increased amlodipine to 10 mg QD . Previously increased amlodipine from 2.5 to 5 mg p.o. q.day starting afternoon 03/13/2017 as she was post her 48 hour period of permissive hypertension. Continue to monitor. * Osteoarthritis with knee & ankle pain. Improved with celecoxib starting 03/22. Worse with increased activity. Continue acetaminophen. She reports she uses ibuprofen occasionally at home but this is relatively contraindicated with concurrent apixaban and aspirin. Chronic/stable issues: * Labs ordered to evaluate low mood/functional issues/urinary incontinence/ frequency. Urinalysis with weakly positive leukocyte esterase and 3-5 white blood cells but urine culture not consistent with urinary tract infection. * Hypoxia at night, resolved. Diastolic dysfn on echo in the hospital. Consider CXR, testing BNP. Does not appear fluid overloaded. Continue O2 PRN. * Constipation. She has been on no laxative during her hospital stay. Constipation is likely due to change in activity and not being in her usual circumstances. Adding polyethylene glycol, 03/14/2017. Continue senna and p.r.n. * Urinary incontinence. She has had this symptom for approximately a year. No urinary retention detected with bladder scanning. * Hypothyroidism. Continue levothyroxine. TSH normal on labs 03/19/2017. * Hyperparathyroidism and hypercalcemia. Most likely stable on labs 03/19/2017, and asymptomatic. * History of vertigo. Query whether this might have been related to the lenticular nucleus stroke in the past. She did not use meclizine during her hospitalization, but it has been ordered on hospital discharge. She will be observed for recurrence of vertigo, and further evaluation can be done if she has recurrence. * Prophylaxis. Refusing enoxaparin. Low mobility. Start apixaban 2.5 mg p.o. twice daily, 03/14/2017. * Continue with current rehabilitation plan Intends to return to independent living and wanted to leave on her birthday 03[birth year]31 but accepting later discharge. Will have pass to go home for birthday celebration on FridayMarch 30. Refusing consideration of SNF discharge for more time in therapy. Intends to hire help at home if needed but upon discussion with daughters she is not aware of how much this would cost and cost is probably prohibitive. Discharge goal of 04/02/2017. computer programming manager to continue working with patient and family regarding possible alternative dispositions. 03/29/17 08:37 Subjective: No new concerns today - working with OT as she gets dressed. No sob, cp. Pain is being controlled Objective: Vital Signs Temp Pulse Resp BP Pulse Ox 36.4 C 61 16 121/70 H 93 03/28/17 19:40 03/28/17 19:40 03/28/17 19:40 03/28/17 20:25 03/28/17 19:40 Laboratory Results 03/19/17 07:45 03/19/17 07:45 03/28/17 03/29/17 03/30/17 05:59 05:59 05:59 Intake Total 700 1066 Output Total 600 300 Balance 100 766 PT 13.8 SEC (12.0-15.0) 03/19/17 07:45 INR 1.07 (0.83-1.16) 03/19/17 07:45 Physical Exam - Physical Exam General Appearance: no apparent distress, other (working with OT) EENT: other (mucous membranes moist) Respiratory: lungs clear, normal breath sounds Cardiac/Chest: regular rate, rhythm Abdomen: normal bowel sounds, soft Skin: normal color Neuro/Psych: alert, normal mood/affect ICD10 Worksheet Patient Problems: Problems Problem Status Onset Stroke Acute
[2017-03-29] MEDS: amLODIPine BESYLATE 5 MG TAB PO SCH (09:30)
[2017-03-29] MEDS: ASPIRIN 81 MG CHEWABLE TAB PO SCH (09:30)
[2017-03-29] MEDS: ATORVASTATIN CALCIUM 20 MG TAB PO SCH (09:30)
[2017-03-29] MEDS: APIXABAN 2.5 MG TAB PO SCH ×2 (09:31→20:39)
[2017-03-29] MEDS: MULTIVITAMINS 1 EACH TAB PO SCH (09:31)
[2017-03-29] MEDS: LISINOPRIL 5 MG TAB PO SCH ×2 (09:31→20:39)
[2017-03-29] MEDS: POLYETHYLENE GLYCOL 3350 17 GM PKT PO SCH (09:34)
[2017-03-30] MEDS: LEVOTHYROXINE 88 MCG TAB PO SCH (05:34)
--- NOTE | 2017-03-30 08:15 | SOAPPROG ---
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 Continue PT and OT to optimize mobility and activities of daily living. * Secondary stroke prophylaxis. Continue aspirin and atorvastatin. Adjusting medications to achieve target BP. * Hypertension. Adequate control on lisinopril to 10 mg BID starting 03/26/17 and amlodipine 10 mg q.day. Prior medication changes: increased lisinopril from 5 minutes g q.day to 10 mg q.day starting 03/25/2017. Med changes 2016 as BP was above target: added lisinopril 5 mg QD; increased amlodipine to 10 mg QD . Previously increased amlodipine from 2.5 to 5 mg p.o. q.day starting afternoon 03/13/2017 as she was post her 48 hour period of permissive hypertension. Continue to monitor. * Osteoarthritis with knee & ankle pain. Improved with celecoxib starting 03/22. Worse with increased activity. Continue acetaminophen. She reports she uses ibuprofen occasionally at home but this is relatively contraindicated with concurrent apixaban and aspirin. Chronic/stable issues: * Labs ordered to evaluate low mood/functional issues/urinary incontinence/ frequency. Urinalysis with weakly positive leukocyte esterase and 3-5 white blood cells but urine culture not consistent with urinary tract infection. * Hypoxia at night, resolved. Diastolic dysfn on echo in the hospital. Consider CXR, testing BNP. Does not appear fluid overloaded. Continue O2 PRN. * Constipation. She has been on no laxative during her hospital stay. Constipation is likely due to change in activity and not being in her usual circumstances. Adding polyethylene glycol, 03/14/2017. Continue senna and p.r.n. * Urinary incontinence. She has had this symptom for approximately a year. No urinary retention detected with bladder scanning. * Hypothyroidism. Continue levothyroxine. TSH normal on labs 03/19/2017. * Hyperparathyroidism and hypercalcemia. Most likely stable on labs 03/19/2017, and asymptomatic. * History of vertigo. Query whether this might have been related to the lenticular nucleus stroke in the past. She did not use meclizine during her hospitalization, but it has been ordered on hospital discharge. She will be observed for recurrence of vertigo, and further evaluation can be done if she has recurrence. * Prophylaxis. Refusing enoxaparin. Low mobility. Start apixaban 2.5 mg p.o. twice daily, 03/14/2017. * Continue with current rehabilitation plan Intends to return to independent living and wanted to leave on her birthday 03/31 but accepting later discharge. Will have pass to go home for birthday celebration today March 30. Refusing consideration of SNF discharge for more time in therapy. Intends to hire help at home if needed but upon discussion with daughters she is not aware of how much this would cost and cost is probably prohibitive. Discharge goal of 04/02/2017. mechanical project manager to continue working with patient and family regarding possible alternative dispositions. 03/30/17 08:12 Subjective: Doing well - very excited to spend some time with her family today. 'You are only 87 once'. no new concerns. no cp, sob, abd pain. Objective: Vital Signs Temp Pulse Resp BP Pulse Ox 36.6 C 65 16 137/79 H 91 L 03/30/17 05:34 03/30/17 05:34 03/30/17 05:34 03/30/17 05:34 03/30/17 05:34 Laboratory Results 03/19/17 07:45 03/19/17 07:45 03/29/17 03/30/17 03/31/17 05:59 05:59 05:59 Intake Total 1066 1000 Output Total 300 Balance 766 1000 PT 13.8 SEC (12.0-15.0) 03/19/17 07:45 INR 1.07 (0.83-1.16) 03/19/17 07:45 Physical Exam - Physical Exam General Appearance: alert, no apparent distress Respiratory: lungs clear, normal breath sounds Cardiac/Chest: regular rate, rhythm Abdomen: normal bowel sounds, non-tender, soft Extremities: non-tender Neuro/Psych: normal mood/affect ICD10 Worksheet Patient Problems: Problems Problem Status Onset Stroke Acute
[2017-03-30] MEDS: ASPIRIN 81 MG CHEWABLE TAB PO SCH (09:10)
[2017-03-30] MEDS: amLODIPine BESYLATE 5 MG TAB PO SCH (09:10)
[2017-03-30] MEDS: POLYETHYLENE GLYCOL 3350 17 GM PKT PO SCH (09:10)
[2017-03-30] MEDS: APIXABAN 2.5 MG TAB PO SCH ×2 (09:10→20:00)
[2017-03-30] MEDS: LISINOPRIL 5 MG TAB PO SCH ×2 (09:10→20:00)
[2017-03-30] MEDS: ATORVASTATIN CALCIUM 20 MG TAB PO SCH (09:10)
[2017-03-30] MEDS: MULTIVITAMINS 1 EACH TAB PO SCH (09:10)
[2017-03-31] MEDS: LEVOTHYROXINE 88 MCG TAB PO SCH (05:57)
[2017-03-31] MEDS: POLYETHYLENE GLYCOL 3350 17 GM PKT PO SCH (09:43)
[2017-03-31] MEDS: APIXABAN 2.5 MG TAB PO SCH ×2 (09:45→20:19)
[2017-03-31] MEDS: MULTIVITAMINS 1 EACH TAB PO SCH (09:45)
[2017-03-31] MEDS: ATORVASTATIN CALCIUM 20 MG TAB PO SCH (09:45)
[2017-03-31] MEDS: LISINOPRIL 5 MG TAB PO SCH ×2 (09:45→20:18)
[2017-03-31] MEDS: ASPIRIN 81 MG CHEWABLE TAB PO SCH (09:45)
[2017-03-31] MEDS: amLODIPine BESYLATE 5 MG TAB PO SCH (09:46)
[2017-03-31] MEDS ORDERED: POLYETHYLENE GLYCOL 3350 17 GM PKT PO PRN (09:48)
--- NOTE | 2017-03-31 09:50 | SOAPPROG ---
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 Initial functional independence measure 65 on 2016, improved to 77 as of 03/21/2017, and to 84 as of 03/26/2017. Ambulated 60- 90 feet with front wheeled walker standby assist to contact guard assist; occasional loss of balance related to left foot placement with spontaneous recovery. Needs assistance with left hand placement on walker. Minimal to moderate assist for upper body and lower body dressing. Moderate assist for toileting and showering. She does not want to use compensatory strategies. Continue PT and OT to optimize mobility and activities of daily living. * Secondary stroke prophylaxis. Continue aspirin and atorvastatin. Adjusting medications to achieve target BP. * Hypertension. Adequate control on lisinopril to 10 mg BID starting 03/26/17 and amlodipine 10 mg q.day. Prior medication changes: increased lisinopril from 5 minutes g q.day to 10 mg q.day starting 03/25/2017. Med changes 2016 as BP was above target: added lisinopril 5 mg QD; increased amlodipine to 10 mg QD . Previously increased amlodipine from 2.5 to 5 mg p.o. q.day starting afternoon 03/13/2017 as she was post her 48 hour period of permissive hypertension. Continue to monitor. * Osteoarthritis with knee & ankle pain. Improved with celecoxib starting 03/22. Worse with increased activity. Continue acetaminophen. She reports she uses ibuprofen occasionally at home but this is relatively contraindicated with concurrent apixaban and aspirin. Chronic/stable issues: * Labs ordered to evaluate low mood/functional issues/urinary incontinence/ frequency. Urinalysis with weakly positive leukocyte esterase and 3-5 white blood cells but urine culture not consistent with urinary tract infection. * Hypoxia at night, resolved. Diastolic dysfn on echo in the hospital. Consider CXR, testing BNP. Does not appear fluid overloaded. Continue O2 PRN. * Constipation. Resolved; senna and polyethylene glycol are p.r.n. and not be used. * Urinary incontinence. She has had this symptom for approximately a year. No urinary retention detected with bladder scanning. * Hypothyroidism. Continue levothyroxine. TSH normal on labs 03/19/2017. * Hyperparathyroidism and hypercalcemia. Most likely stable on labs 03/19/2017, and asymptomatic. * History of vertigo. Query whether this might have been related to the lenticular nucleus stroke in the past. She did not use meclizine during her hospitalization, but it has been ordered on hospital discharge. She will be observed for recurrence of vertigo, and further evaluation can be done if she has recurrence. * Prophylaxis. Refusing enoxaparin. Low mobility. Start apixaban 2.5 mg p.o. twice daily, 03/14/2017. Intends to return to independent living and wanted to leave on her birthday 03/31 but accepting later discharge. Refused consideration of SNF discharge for more time in therapy. Intends to hire help at home if needed but upon discussion with daughters she is not aware of how much this would cost and cost is probably prohibitive. Discharge goal of 04/02/2017. integration manager to continue working with patient and family regarding possible alternative dispositions. 03/31/17 09:45 Subjective: No complaints this morning. Slept well. Enjoyed a birthday celebration at her home on [address] yesterday afternoon. Right knee pain is adequately controlled with p.r.n. celecoxib. Objective: Vital Signs Temp Pulse Resp BP Pulse Ox 36.6 C 62 16 137/76 H 93 03/31/17 07:22 03/31/17 07:22 03/31/17 07:22 03/31/17 07:22 03/31/17 07:22 Laboratory Results 03/19/17 07:45 03/19/17 07:45 03/30/17 03/31/17 04/01/17 05:59 05:59 05:59 Intake Total 1000 1100 Output Total 100 Balance 1000 1000 PT 13.8 SEC (12.0-15.0) 03/19/17 07:45 INR 1.07 (0.83-1.16) 03/19/17 07:45 Physical Exam - Physical Exam General Appearance: WD/WN, alert, no apparent distress, obese Respiratory: normal breath sounds, No crackles, No rhonchi, No wheezing Cardiac/Chest: regular rate, rhythm, No edema, No diastolic murmur, No systolic murmur Neuro/Psych: alert, normal mood/affect, oriented x 3, motor weakness (Strength improved left upper extremity with good mobility at all joints and hand biomedical engineering aide 3/ 5.) ICD10 Worksheet Patient Problems: Problems Problem Status Onset Stroke Acute
[2017-04-01] MEDS: LEVOTHYROXINE 88 MCG TAB PO SCH (05:29)
--- NOTE | 2017-04-01 09:01 | SOAPPROG ---
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 A total of 35 minutes was spent in the care of the patient, the majority of which was spent counseling and coordination of care regarding discharge planning. She will be going home with nursing assistance as well as PT and OT, plan for discharge tomorrow. Planned also discussed with Dr. Jimenez the need for ongoing apixaban, I anticipate that this can be stopped. 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 Initial functional independence measure 65 on 2016, improved to 77 as of 03/21/2017, and to 84 as of 03/26/2017. Ambulated 60- 90 feet with front wheeled walker standby assist to contact guard assist; occasional loss of balance related to left foot placement with spontaneous recovery. Needs assistance with left hand placement on walker. Minimal to moderate assist for upper body and lower body dressing. Moderate assist for toileting and showering. She does not want to use compensatory strategies. Continue PT and OT to optimize mobility and activities of daily living. * Secondary stroke prophylaxis. Continue aspirin and atorvastatin. Adjusting medications to achieve target BP. * Hypertension. Adequate control on lisinopril to 10 mg BID starting 03/26/17 and amlodipine 10 mg q.day. Prior medication changes: increased lisinopril from 5 minutes g q.day to 10 mg q.day starting 03/25/2017. Med changes 2016 as BP was above target: added lisinopril 5 mg QD; increased amlodipine to 10 mg QD . Previously increased amlodipine from 2.5 to 5 mg p.o. q.day starting afternoon 03/13/2017 as she was post her 48 hour period of permissive hypertension. Continue to monitor. * Osteoarthritis with knee & ankle pain. Improved with celecoxib starting 03/22. Worse with increased activity. Continue acetaminophen. She reports she uses ibuprofen occasionally at home but this is relatively contraindicated with concurrent apixaban and aspirin. Chronic/stable issues: * Labs ordered to evaluate low mood/functional issues/urinary incontinence/ frequency. Urinalysis with weakly positive leukocyte esterase and 3-5 white blood cells but urine culture not consistent with urinary tract infection. * Hypoxia at night, resolved. Diastolic dysfn on echo in the hospital. Consider CXR, testing BNP. Does not appear fluid overloaded. Continue O2 PRN. * Constipation. Resolved; senna and polyethylene glycol are p.r.n. and not be used. * Urinary incontinence. She has had this symptom for approximately a year. No urinary retention detected with bladder scanning. * Hypothyroidism. Continue levothyroxine. TSH normal on labs 03/19/2017. * Hyperparathyroidism and hypercalcemia. Most likely stable on labs 03/19/2017, and asymptomatic. * History of vertigo. Query whether this might have been related to the lenticular nucleus stroke in the past. She did not use meclizine during her hospitalization, but it has been ordered on hospital discharge. She will be observed for recurrence of vertigo, and further evaluation can be done if she has recurrence. * Prophylaxis. Refused enoxaparin. Low mobility. Start apixaban 2.5 mg p.o. twice daily, 03/14/2017. Plan to stop on discharge. Discharge goal of 04/02/2017. 03/18/17 10:30 03/20/17 10:01 03/25/17 10:33 03/27/17 08:49 04/01/17 08:53 Subjective: Chief complaint: Discharge planning No acute events overnight. Patient endorsed that she had a great time with family over the weekend for her birthday. She has been working with therapies, though making slow progress with inconsistent participation. No new shortness of breath or chest pain, no new numbness, tingling, weakness. She is looking forward to going home and being on her own schedule. Objective: Vital Signs Temp Pulse Resp BP Pulse Ox 36.8 C 61 16 157/74 H 95 04/01/17 06:54 04/01/17 06:54 04/01/17 06:54 04/01/17 06:54 04/01/17 06:54 Laboratory Results 03/19/17 07:45 03/19/17 07:45 03/31/17 04/01/17 04/02/17 05:59 05:59 05:59 Intake Total 1100 1270 Output Total 100 Balance 1000 1270 PT 13.8 SEC (12.0-15.0) 03/19/17 07:45 INR 1.07 (0.83-1.16) 03/19/17 07:45 Physical Exam - Physical Exam General Appearance: WD/WN, alert, no apparent distress EENT: No scleral icterus (R), No scleral icterus (L) Respiratory: No respiratory distress, No accessory muscle use Cardiac/Chest: normal peripheral pulses, regular rate, rhythm Skin: normal color, warm/dry, No cyanosis, No diaphoresis Extremities: pedal edema (Unchanged) Neuro/Psych: alert, normal mood/affect, oriented x 3, motor weakness (Left hemipareses great improving, generally 4/5) ICD10 Worksheet Patient Problems: Problems Problem Status Onset Stroke Acute
--- NOTE | 2017-04-01 09:05 | PDOREHIP ---
Admission [facility] - Admission - 3 Day Assessment Period Admission Date/Day 1: 03/12/17 Day 2: 03/13/17 Day 3: 03/14/17 Discharge [facility] - Discharge - 3 Day Assessment Period 2 Days Prior to Anticipated Discharge Date: 03/31/17 1 Day Prior to Anticipated Discharge Date: 04/01/17 Anticipated Discharge Date: 04/02/17 - Discharge Skin Conditions Unhealed Pressure Ulcer (1 or more/Stage 1 or >)-Discharge: 0. No
[2017-04-01] MEDS: ATORVASTATIN CALCIUM 20 MG TAB PO SCH (09:32)
[2017-04-01] MEDS: MULTIVITAMINS 1 EACH TAB PO SCH (09:32)
[2017-04-01] MEDS: APIXABAN 2.5 MG TAB PO SCH ×2 (09:32→20:27)
[2017-04-01] MEDS: LISINOPRIL 5 MG TAB PO SCH ×2 (09:32→20:26)
[2017-04-01] MEDS: ASPIRIN 81 MG CHEWABLE TAB PO SCH (09:32)
[2017-04-01] MEDS: amLODIPine BESYLATE 5 MG TAB PO SCH (09:33)
[2017-04-02] MEDS: LEVOTHYROXINE 88 MCG TAB PO SCH (06:21)
[2017-04-02] MEDS: LISINOPRIL 5 MG TAB PO SCH (09:40)
[2017-04-02] MEDS: amLODIPine BESYLATE 5 MG TAB PO SCH (09:40)
[2017-04-02] MEDS: ASPIRIN 81 MG CHEWABLE TAB PO SCH (09:40)
[2017-04-02] MEDS: MULTIVITAMINS 1 EACH TAB PO SCH (09:41)
[2017-04-02] MEDS: APIXABAN 2.5 MG TAB PO SCH (09:41)
[2017-04-02] MEDS: ATORVASTATIN CALCIUM 20 MG TAB PO SCH (09:41)
[2017-04-02 09:47] VITALS: BP 125/72
[2017-04-02 10:58] VITALS: PULSE 53; TEMP 97.7; O2SAT 96
--- NOTE | 2017-04-02 18:31 | GDS ---
[f rep st] DISCHARGE SUMMARY ADMITTING DIAGNOSIS: Cerebrovascular accident, right frontal lobe lacunar, with history of right lenticular nucleus infarction. DISCHARGE DIAGNOSIS: Cerebrovascular accident, right frontal lobe lacunar, with history of right lenticular nucleus infarction. OTHER DIAGNOSES: 1. Hypertension. 2. Left hemiparesis. 3. Osteoarthritis. 4. Right knee pain. CONSULTATIONS: There were none. PROCEDURES: There were none. COMPLICATIONS: There were none. HISTORY AND HOSPITAL COURSE: This patient was admitted from [facility] with left arm and bilateral lower extremity weakness. MRI of the brain showed right frontal lobe acute 1 cm lacunar infarct and an old lacunar infarct in the right lentiform nucleus. She was not a candidate for thrombolysis because it was greater than 4 hours after symptom onset and she was older than 80 years old. There was some improvement in her symptoms. She was participating in therapies and appropriate for inpatient rehabilitation. Her initial functional independence measure was 65 on 03/14/2017, which is consistent with long-term level of care. She required moderate assistance for transfers. She was able to ambulate 10 feet with a front-wheeled walker. She needed moderate assistance for upper and lower body dressing and for bathing. Her function improved considerably. As of 03/26/2017, her functional independence measure had improved to 84, which is consistent with assisted living facility level of function. She was ambulating 60-90 feet with a front- wheeled walker and standby or contact guard assist. She had occasional loss of balance related to left foot placement and was able to recover spontaneously. She needed some assistance with left hand placement on the walker. She needed minimal to moderate assistance for upper body and lower body dressing and moderate assistance for toileting and showering. On the day of discharge, she was able to ambulate 150 feet x2 with a four- wheeled walker. She was noted to be inconsistent with steering and breaking. Regarding activities of daily living, she improved to modified independence using a device for dressing, transfers and bathing. She continued to have some weakness to the left upper extremity. Regarding hypertension, medications were titrated and adequate control was achieved with lisinopril 10 mg b.i.d. and amlodipine 10 mg daily. Her right knee pain initially was interfering with her ability to ambulate. She was begun on celecoxib 100 mg b.i.d. p.r.n. starting 03/22/2017. She was continued on acetaminophen. She had considerable improvement in her pain and in her function. She had urinary incontinence. She had bladder scanning and there was no urinary retention. Urinalysis was done, which was weakly positive with leukocyte esterase and 3-5 white blood cells. Her urine culture grew 2 colony types and was not consistent with urinary tract infection. Other labs during her hospitalization: a CBC was overall within normal limits on 03/21/2017. Hematocrit was slightly high at 47.8. Serum chemistry revealed normal renal function and electrolytes with the exception of an elevated calcium at 10.7 and an elevated intact PTH of 186, consistent with known chronic hyperparathyroidism. PHYSICAL EXAMINATION: VITAL SIGNS: On the day of discharge, blood pressure is 125/72, heart rate is 53, respiratory rate is 16, oxygen saturation 96% on room air. Temperature is 36.5 degrees centigrade. GENERAL: This is a well- nourished, well-developed, elderly woman, cooperative and in no acute distress. HEART: There is a regular rate and rhythm with no murmurs, rubs or gallops. LUNGS: Clear to auscultation bilaterally. ABDOMEN: Soft, nontender, not distended with normoactive bowel sounds. EXTREMITIES: There is no cyanosis, clubbing or edema. NEUROLOGIC: She is alert and oriented x3. Cranial nerves 2 -12 are grossly intact. There is no focal weakness, but she has some ataxia to the left upper extremity. Gait is slow using a 4-wheeled walker but otherwise within normal limits. CONDITION UPON DISCHARGE: Good. ACTIVITY: Ad tina. DIET: Regular. DATE OF NEXT APPOINTMENT: She will follow up with primary care provider, Dr. Frank Jarrett on 04/09/2017, and with neurologist, Dr. Duane River, on 2016. DISCHARGE MEDICATIONS: 1. Amlodipine 10 mg p.o. daily. 2. Celecoxib 100 mg p.o. b.i.d. p.r.n. 3. Lisinopril 10 mg p.o. b.i.d. 4. Multivitamin daily. 5. Acetaminophen 650 mg q.4 hours p.r.n. 6. Aspirin 81 mg daily. 7. Atorvastatin 20 mg daily. 8. Levothyroxine 88 mcg daily. ISSUES TO BE ADDRESSED AT FOLLOWUP: 1. Functional status regarding mobility and activities of daily living. She will have calender let off helper in the home for the first few days as well as assistance from family. She can follow up with primary care or Neurology regarding continued therapies. She will continue to have physical and occupational therapy at home. 2. Hypertension is well controlled. She should continue her medications and follow up with primary care. 3. Secondary stroke prophylaxis. Continue aspirin and atorvastatin. Follow up again with primary care and Neurology. The importance of remaining compliant with her medications was emphasized to her. 4. Osteoarthritis with right knee pain. Pain is improved and is manageable on her current medications with acetaminophen and celecoxib. I will leave to primary care to decide the wisdom of long-term NSAID in an elderly woman. However, its affect on improving her function was significant. /[id number]/MODL MTDD
== END 2017-04-02 13:24 | disposition home health service (06) | DRG 57 ==
LOC: BREH 03-12 14:48
PROVIDERS: ADMIT Internal Medicine; ATTEND Internal Medicine
PROC: F08Z7ZZ Vocational Activities and Functional Community or Work Reintegration Skills Treatment (ICD-10-PCS; principal; 2017-03-12)
PROC: F07M3ZZ Motor Function Treatment of Musculoskeletal System - Whole Body (ICD-10-PCS; principal; 2017-03-12)
DX: I69.354 Hemiplegia and hemiparesis following cerebral infarction affecting left non-dominant side (principal); E03.9 Hypothyroidism, unspecified; I10 Essential (primary) hypertension; K59.00 Constipation, unspecified; R32 Unspecified urinary incontinence; E20.9 Hypoparathyroidism, unspecified; M17.11 Unilateral primary osteoarthritis, right knee; Z91.81 History of falling
CPT/HCPCS: 82607-90; 97110-GO; 97110-GP; 97112-GO; 97112-GP; 97116-GP; 97162-GP; 97166-GO; 97530-GO; 97530-GP; 97532-GO; 97535-GO; 97542-GP; 99366-GO; J1650

== ENCOUNTER 2017-08-23 16:30 | Observation (INO) | payer OTHER, MEDICARE ==
--- NOTE | 2017-08-23 16:38 | EDPHY ---
H & P Time Seen by Provider: 08/23/17 16:38 HPI/ROS: CHIEF COMPLAINT: Vertigo and spinning HISTORY OF PRESENT ILLNESS: 87-year-old woman has had vertigo before. She also had a recent hospitalization for ischemic stroke in February of last year. She reports the onset of her dizziness this morning at 7:30 a.m. When she got up which she describes as a spinning sensation which is worse with movement of her head or standing up and not associated with lightheaded or fainting or near syncope. This does associate with nausea and she does not have trouble with speech or thought. She has trouble walking because she normally uses a walker after her stroke and cannot today because of the vertigo. Symptoms severe and she arrives by EMS. REVIEW OF SYSTEMS: Eye: no change in vision ENT: no sore throat or earache Cardiac: no chest pain or syncope Pulmonary: no cough or SOB Abdomen: Nausea but no vomiting or abdominal pain Musculoskeletal: No neck pain Skin: no rash Neuro: no headache, HPI Constitutional: no fever : no urinary symptoms, chronic incontinence for last 2 years A comprehensive 10 point review of systems is otherwise negative aside from elements mentioned in the history of present illness. PAST MEDICAL HISTORY: Discharge summary dated 03/11/2017 reviewed includes CVA hypothyroid and hypertension. Social history: Nonsmoker General Appearance: Alert and conversant, cooperative. Eyes: No scleral icterus. Extraocular motion intact and pupils equal and reactive. ENT, Mouth: Normal mucous membranes. Respiratory: Normal respiratory effort, breath sounds equal, lungs are clear to auscultation. Cardiovascular: Regular rate and rhythm. No carotid bruit. Gastrointestinal: Abdomen is soft and non tender. Neurological: Alert, face symmetric, normal motor and sensory in extremities. Kdgkgn-le-uztg normal and no pronator drift. Speech is fluent. She has difficulty standing at the side of the bed even with her eyes open when she gets up because of her dizziness. She needs to be assisted by the nurse. Skin: Warm and dry, no rashes. Musculoskeletal: No peripheral edema. Psychiatric: Not agitated. Emergency Department course/MDM: Patient presents with typical symptoms of peripheral vertigo. Zofran 4 mg IV, EKG and labs, meclizine 25 mg orally. Likely require admission because she has baseline gait instability after her stroke requiring a walker. I think it is unlikely that she has cerebellar stroke or vertebral dissection, or other cause of central vertigo. Smoking Status: Former smoker Constitutional: Initial Vital Signs Temperature (C) 36.9 C 08/23/17 16:34 Heart Rate 59 L 08/23/17 16:34 Respiratory Rate 18 08/23/17 16:34 Blood Pressure 209/86 H 08/23/17 16:34 O2 Sat (%) 98 08/23/17 16:34 Allergies/Adverse Reactions: Penicillins Allergy (Severe, Verified 03/10/17 02:23) throat closes up soy Allergy (Verified 03/10/17 02:23) red grapes Allergy (Uncoded 08/23/17 16:37) red wine Allergy (Uncoded 08/23/17 16:37) Home Medications: Medication Instructions Recorded Multivitamins [Multivitamin (*)] 1 each PO DAILY 03/10/17 Acetaminophen [Tylenol 325mg (*)] 650 mg PO Q4HRS PRN tab 03/12/17 Aspirin [Aspirin 81mg (*)] 81 mg PO DAILY tab.chew 03/12/17 Atorvastatin Calcium [Lipitor 20 20 mg PO DAILY #30 tab 04/01/17 mg (*)] Levothyroxine [Synthroid 88 mcg 88 mcg PO DAILY06 #30 tab 04/01/17 (*)] Lisinopril [Zestril 5 mg (*)] 10 mg PO BID #30 tab 04/01/17 Medical Decision Making - Diagnostics EKG Interpretation: 12-lead EKG interpreted by me; official reading is in trace master. My interpretation is sinus rhythm rate 54 with left atrial abnormality. Indication is vertigo. Differential Diagnosis: Differential diagnosis considered for dizziness including but not limited to peripheral and central causes of vertigo, orthostatic causes including dehydration, and blood loss. Consult/Admit Bed Type: [place] [id number] - Data Points Laboratory Results: Laboratory Results 08/23/17 16:55 08/23/17 08/23/17 16:55 16:55 WBC 7.47 10^3/uL 10^3/uL (3.80-9.50) RBC 5.11 10^6/uL 10^6/uL (4.18-5.33) Hgb 16.1 g/dL g/dL (12.6-16.3) Hct 47.6 % H % (38.0-47.0) MCV 93.2 fL fL (81.5-99.8) MCH 31.5 pg pg (27.9-34.1) MCHC 33.8 g/dL g/dL (32.4-36.7) RDW 12.6 % % (11.5-15.2) Plt Count 260 10^3/uL 10^3/uL (150-400) MPV 9.6 fL fL (8.7-11.7) Neut % (Auto) 62.7 % % (39.3-74.2) Lymph % (Auto) 25.0 % % (15.0-45.0) [place] % (Auto) 9.8 % % (4.5-13.0) Eos % (Auto) 1.1 % % (0.6-7.6) Baso % (Auto) 1.1 % % (0.3-1.7) Nucleat RBC Rel Count 0.0 % % (0.0-0.2) Absolute Neuts (auto) 4.69 10^3/uL 10^3/uL (1.70-6.50) Absolute Lymphs (auto) 1.87 10^3/uL 10^3/uL (1.00-3.00) Absolute Monos (auto) 0.73 10^3/uL 10^3/uL (0.30-0.80) Absolute Eos (auto) 0.08 10^3/uL 10^3/uL (0.03-0.40) Absolute Basos (auto) 0.08 10^3/uL 10^3/uL (0.02-0.10) Absolute Nucleated RBC 0.00 10^3/uL 10^3/uL (0-0.01) Immature Gran % 0.3 % % (0.0-1.1) Immature Gran # 0.02 10^3/uL 10^3/uL (0.00-0.10) Sodium Pending Potassium Pending Chloride Pending Carbon Dioxide Pending Anion Gap Pending BUN Pending Creatinine Pending Estimated GFR Pending Glucose Pending Calcium Pending Medications Given: Discontinued Medications Meclizine HCl (Meclizine Hcl) 25 mg PO EDNOW ONE Stop: 08/23/17 16:47 Last Admin: 08/23/17 16:49 Dose: 25 mg Ondansetron HCl (Zofran) 4 mg IVP EDNOW ONE Stop: 08/23/17 16:47 Last Admin: 08/23/17 16:55 Dose: 4 mg Departure - Departure Disposition: [facility] Inpatient Acute Clinical Impression: Vertigo Condition: Good Referrals: Frank Jarrett MD [Primary Care Provider] - As per Instructions
[2017-08-23] MEDS ORDERED: ONDANSETRON 4 MG/2 ML VIAL IVP ONE (16:46)
[2017-08-23] MEDS ORDERED: MECLIZINE HCL 25 MG TAB PO ONE (16:46)
[2017-08-23 17:01] LABS: PLATELET COUNT 260 10^3/uL (150-400)
--- NOTE | 2017-08-23 17:09 | CPEKG ---
Heart Rate: 54 RR Interval: 1111 P-R Interval: 138 QRSD Interval: 94 QT Interval: 440 QTC Interval: 417 P [place]: 44 QRS [place]: 21 T Wave [place]: 48 EKG Severity - ABNORMAL ECG - EKG Impression: SINUS RHYTHM EKG Impression: LEFT ATRIAL ABNORMALITY Electronically Signed By: Ronny Moody 23-Aug-2017 17:08:11
[2017-08-23] MEDS ORDERED: ACETAMINOPHEN 325 MG TAB PO PRN (17:22)
[2017-08-23] MEDS ORDERED: ONDANSETRON 4 MG/2 ML VIAL IVP PRN (17:22)
[2017-08-23] MEDS ORDERED: NS 1,000 ML IV ONE (17:22)
[2017-08-23] MEDS ORDERED: ONDANSETRON DISINTEGRATING 4 MG TAB PO PRN (17:22)
[2017-08-23] MEDS ORDERED: MECLIZINE HCL 25 MG TAB PO PRN (17:24)
[2017-08-23] MEDS ORDERED: hydrALAZINE 20 MG/ML VIAL IVP PRN (18:56)
--- NOTE | 2017-08-23 19:39 | GHP ---
[f rep st] HISTORY AND PHYSICAL DATE OF ADMISSION: 08/23/2017 CHIEF COMPLAINT: Vertigo. HISTORY OF PRESENT ILLNESS: An 87-year-old female with a history of hypertension and a CVA without r emnant deficits, who presents with vertigo that began this morning when she awoke. Patient notes brie t her vertigo experience of the room spinning with associated lightheadedness is worse when lying fla t. When patient was in a more seated position, symptoms improved. She did not have nausea or vomiti ng with this sensation. Cannot exacerbate the sensation by turning her head to either direction. Klein s not have any chest pain, any palpitations, any tinnitus. Patient cannot describe previous episodes similar to this at all. Patient denies any double vision, vision changes, earache, upper respirator y symptoms, rhinorrhea, cough, or shortness of breath. Denies any changes in her bowel habits, abdom inal discomfort, or lower extremity edema. PAST MEDICAL HISTORY: 1. Hypertension. 2. History of a CVA. 3. Hypothyroidism. SOCIAL HISTORY: Negative for tobacco. Negative for alcohol. Negative for illicit drugs or marijuan a. FAMILY HISTORY: Unknown if strokes run in her family. REVIEW OF SYSTEMS: 10-point review of systems is negative with the exception of that reported in the HPI. PHYSICAL EXAMINATION: VITAL SIGNS: Blood pressure is 197/100, heart rate 83, respiratory rate 19, s atting 98% on room air, 36.3. GENERAL: This is a petite, elderly female, sitting up in bed. HEENT: Notable for dry mucous membranes. Eye exam is negative for any icterus. CARDIAC: Patient i s regular rate and rhythm. A systolic murmur is appreciated at the right upper sternal border. PULM ONARY: She is clear to auscultation bilaterally. GASTROINTESTINAL: Positive bowel sounds. Abdomen is soft and nontender. MUSCULOSKELETAL: Negative for any lower extremity edema. SKIN: Negative f or any rashes. NEUROLOGIC: The patient has horizontal nystagmus, 5 beats in each eye. No vertical nystagmus is noted. Sensation is intact throughout. Her strength is 5/5 of her upper and lower extr emities. There is no tongue deviation, facial asymmetry. Her gait was not evaluated. PSYCHIATRIC: She is pleasant and cooperative on interview and examination. DATA: White count 7.4, hematocrit 47.6, platelets of 260. Creatinine 0.9. Urinalysis is negative. EKG, which I personally reviewed and interpreted, shows sinus rhythm, normal axis, normal intervals w ith no acute ST-T changes. ASSESSMENT AND PLAN: 1. This is an 87-year-old female presenting with new onset vertigo. Differential would include sima gn positional vertigo, vestibular abnormalities, possible migraine without headache. Patient did res pond well to meclizine provided in the emergency department. Suspicion for a transient ischemic dwaine ck at this time is low based on her otherwise normal neurologic exam. Plan to admit the patient for observation. I have asked that Neurology consult in the morning with her known history of cerebrovas cular accident to make recommendations on the necessity for neuro imaging. We will continue meclizin e and intravenous fluid, resuscitate the patient overnight. I have ordered Physical Therapy, Occupat ional Therapy for evaluations and decisions related to safe disposition potentially tomorrow. 2. Malignant hypertension. Patient's blood pressures are in the 200s upon arrival to the floor. We will use as needed hydralazine and her home medications to get her back down to what appears to be a baseline between the 130s and 140s. Unclear at this time if this is somehow contributing to her pre sentation with vertigo or not. We will simply work on getting this controlled overnight so the patie nt is close to her baseline for her neurologic evaluation in the morning. 3. Hypothyroidism. We will continue her Synthroid therapy. 4. History of cerebrovascular accident. Patient is on an aspirin, statin, and angiotensin convertin g enzyme inhibitor. Her aspirin and statin will be continued. Again, I am not attempting neurologic imaging this evening. Have asked that Neurology evaluate this patient as she is higher risk for tra nsient ischemic attack based on her previous history, but want to wait to order imaging with neurolog ic guidance. 5. Prophylaxis: Lovenox. 6. Diet: Regular. DISPOSITION: I expect less than 2 midnights if the patient's symptoms continue to improve with suppo rtive care and she is evaluated as safe for disposition by PT tomorrow. I have discussed the case wi th the emergency room physician. Patient will be triaged to the medical-surgical floor for care. /[id number]/MODL
[2017-08-23] MEDS: LISINOPRIL 10 MG TAB PO SCH (20:59)
[2017-08-24 04:56] LABS: PLATELET COUNT 201 10^3/uL (150-400)
[2017-08-24] MEDS ORDERED: LEVOTHYROXINE 88 MCG TAB PO SCH (06:00)
[2017-08-24 08:04] VITALS: BP 165/80; PULSE 61; RESP 11; TEMP 98.3; O2SAT 93
[2017-08-24] MEDS ORDERED: ASPIRIN 81 MG CHEWABLE TAB PO SCH (09:00)
[2017-08-24] MEDS ORDERED: MULTIVITAMINS 1 EACH TAB PO SCH (09:00)
[2017-08-24] MEDS ORDERED: ATORVASTATIN CALCIUM 20 MG TAB PO SCH (09:00)
[2017-08-24] MEDS: ENOXAPARIN 40 MG/0.4 ML SYR SC SCH ×2 (09:17→09:22)
[2017-08-24] MEDS: LISINOPRIL 10 MG TAB PO SCH (09:17)
--- NOTE | 2017-08-24 11:43 | PDIAF ---
- Diagnosis Diagnosis: vertigo Code Status: Do Not Resuscitate - Medication Management Discharge Medications: Medications to Continue on Transfer Multivitamins [Multivitamin (*)] 1 each PO DAILY 03/10/17 [Last Taken 08/22/17] Aspirin [Aspirin 81mg (*)] 81 mg PO DAILY tab.chew 03/12/17 [Last Taken ] Atorvastatin Calcium [Lipitor 20 mg (*)] 20 mg PO DAILY #30 tab 04/01/17 [Last Taken 08/23/17] Levothyroxine [Synthroid 88 mcg (*)] 88 mcg PO DAILY06 #30 tab 04/01/17 [Last Taken 08/23/17] Lisinopril [Zestril 5 mg (*)] 10 mg PO BID #30 tab 04/01/17 [Last Taken 08/23/17 ] Naproxen Sodium [Aleve 220 MG (*)] 220 mg PO DAILY PRN 08/23/17 [Last Taken ] Acetaminophen [Tylenol 325mg (*)] 650 mg PO Q4HRS PRN tab 08/24/17 [Last Taken Unknown] Meclizine HCl [Meclizine HCl 25 mg (RX,OTC)] 25 mg PO BID PRN tab 08/24/17 [ Last Taken Unknown] Discharge Medications: Refer to the Discharge Home Medication list for PRN reason. PICC Care - Routine: N/A - Orders Services needed: Home Care, Physical Therapy Home Care Face to Face: I certify that this patient was under my care and that I had the required qrgl-xc-prit encounter meeting the encounter requirements on the discharge day. My findings support the fact that the patient is homebound as defined in Home Care Face to Face Continued: CMS Chapter 7 Medicare Benefits Manual 30.1.1 , The condition of the patient is such that there exists a normal inability to leave home and consequently, leaving home would require a considerable and taxing effort. Diet Recommendation: no restrictions on diet - Follow Up Care Current Providers and Referrals: Frank Jarrett MD [Primary Care Provider] - As per Instructions
--- NOTE | 2017-08-24 12:26 | GCON ---
[f rep st] CONSULTATION NEUROLOGY CONSULT REFERRING PHYSICIAN: Natalie Guevara MD CHIEF COMPLAINT: Vertigo. HISTORY OF PRESENT ILLNESS: The patient is a very pleasant 87-year-old lady who has seen my colleague, Dr. River, for a right subcortical infarct in February of 2017. Please see previous hospital notes for details. She was left with a left-sided weakness from this event. She has had 10+ years of episodic, recurrent wozr-dk-loan vertigo. She had a recurrence of this ucdu-nj-rchi vertigo yesterday and it felt particularly intense. She was more concerned because she has some chronic incontinence and had trouble getting to the bathroom, so she called a neighbor, who activated 911. She was brought in and admitted for observation and had spontaneous improvement/resolution of her symptoms with meclizine and time. It is clearly aggravated with head movements and resolved with things still. Visual fixation did not particularly help and she feels off balance while walking. There was no associated focal neurologic symptoms with this event such as one-sided weakness, numbness, facial, motor, or sensory symptoms, dysarthria, or any other focal neurologic symptoms. She is on a baseline treatment of aspirin, atorvastatin, and antihypertensives on a daily basis from her previous stroke, which was thought to be a hypertensive-related lacunar infarct. She had outpatient followup for this. She now is doing well and resting and had resolution of her symptoms until both I and Physical Therapy did the Sondheimer-Hallpike maneuver on her, which was positive and made the vertigo come back somewhat, but it is resolving again now. REVIEW OF SYSTEMS: A 10-point review of systems was done, only pertinent in HPI. For past medical history, social history, family history, home medications, please see Dr. Guevara's H and P. PHYSICAL EXAMINATION: VITAL SIGNS: Blood pressure 140/72, temperature 36.6, heart rate 80s. GENERAL: She is very pleasant in no acute distress. NEUROLOGIC: Cranial nerve exam 2 through 7 and 12 are normal at baseline. With the Sondheimer-Hallpike maneuver, she had some minimal nystagmus with head turned to the left. She also had some recurrence of vertigo with the Sondheimer-Hallpike with her head turned to the left. To the right, she had no problem. On motor exam, she has a lptc-ms-aoxioslv left hemiparesis which is chronic. Sensory exam showed no objective findings. Coordination; normal ezrfcc-[id number]-zqifhp bilaterally. IMPRESSION/PLAN: 1. Vertigo, resolving. Overall, her clinical history and neurologic exam are more consistent with a peripheral vertigo / benign positional paroxysmal vertigo. She has had this identical set of symptoms for 10-15 years, which has been diagnosis as peripheral vertigo according to the patient. She has recurrence episodically with exacerbation of head movements and [place]-Hallpike maneuver was positive today. She was counseled at length. Head CT without contrast showed no acute findings or intracranial hemorrhage. As her symptoms have resolved spontaneously, as they have in the past, I discussed that no further testing needs to be done now and she can discharge home with close outpatient followup. She is in outpatient PT and OT. Most importantly, we talked about her very high blood pressure which she presented with. She will talk to her PCP about adjusting antihypertensive medications for more smooth and tight control of her blood pressure. She is agreeable to this. She will follow with Dr. River, her neurologist, as an outpatient if needed as well. No further recommendations now. Seventy minutes on the floor reviewing past hospitalization, current hospitalization, imaging, records, direct counseling with the patient and coordination of care. We will sign off and follow up as needed. Please do not hesitate to call if there are any questions or changes in neurologic status with this very pleasant patient. /[id number]/MODL MTDD
--- NOTE | 2017-08-24 13:09 | ASMTLACE ---
LACE Length of stay for Answers: 1 day current admission Acuity / Level of Answers: Yes Care: Did the patient have an inpatient admission? Comorbidities - select Answers: Cerebrovascular disease all that apply (CVA, TIA, aneurysms, vasc ular dementia) # of Emergency department Answers: 1-2 visits in the last 6 months Score: 6 Date Signed: 08/24/2017 01:09 PM Electronically Signed By:Angelique Gregory RN
--- NOTE | 2017-08-24 13:17 | ASMTCMCOM ---
CM Note CM Note Notes: Chart reviewed. 87 year old female admitted though ED with dizzyness and HTN. She lives at [facility]. She has been medically cleared per hospital medicine with [facility] via [facility] for PT/OT. Her family is to transport her back to [facility]. Referral and orders via allscripts and spoke to tong hooker CANDICE Sullivan. CM available should needs arise. Date Signed: 08/24/2017 01:16 PM Electronically Signed By:Angelique Gregory RN
--- NOTE | 2017-08-24 13:27 | GDS ---
[f rep st] DISCHARGE SUMMARY DISCHARGE DIAGNOSES: Benign positional proximal vertigo. STUDIES AND PROCEDURES DONE: CT of the head. CONSULTATIONS: Neurology. PHYSICAL EXAM: GENERAL: The patient is alert. VITAL SIGNS: Afebrile at 36.8, pulse is 61, respira tory rate is 11, blood pressure is 165/80. She is saturating 93% on room air. I have seen and evaluated the patient on the day of discharge. HOSPITAL COURSE: The patient is an 87-year-old female who presented to the emergency room with compl aints of dizziness. She was evaluated during this hospitalization, received a consultation from Neur ology. It is felt that the patient is suffering from benign positional vertigo. During her hospital ization, her Belgica-Hallpike maneuver was positive. Her symptoms have significantly improved. She has been evaluated by Physical Therapy as well as Occupational Therapy. This is an ongoing, likely chron ic, problem intermittently for the patient. FOLLOWUP: She will follow up in the outpatient setting with her neurologist, Dr. River. I have also ordered Home Health Care Physical Therapy for the patient at the time of disposition. There are no p ending studies. DISCHARGE MEDICATIONS: Please refer to EMR form. I have not provided the patient with any prescript ions at the time of disposition as she is recommended to continue all of her previously prescribed ho me medications. I reviewed the patient's disposition with Dr. Vera. /[id number]/MODL
--- NOTE | 2017-08-24 15:50 | ASDISCHSUM ---
Discharge Information Plan Status:Home with Home Health Medically Cleared to Leave: Discharge Date:08/24/2017 03:03 PM CM D/C Disposition:Home Health Service ADT D/C Disposition:Home Health Service Projected Discharge Date:08/24/2017 11:00 AM Transportation at D/C:Family Discharge Delay Reason: Follow-Up Date:08/24/2017 11:00 AM Discharge Slot: Final Diagnosis: Placement Information Referral Type:*Home Health Care Services Referral ID:[id number] Provider Name[facility] Address 1:[address] [place] [address] Address 2: City:[place] Selection Factors: State:[place] Patient Contact Information Contact Name:ANDRÉS Relationship:Daughter Address: City: [facility] Phone: State/Zip Code: Email: Financial Information Financial Class:Medicare Primary Plan Desc:MEDICARE OUTPATIENT Primary Plan Number:[id number] Secondary Plan Desc:[employer]/MDR SUPPLEMENT Secondary Plan Number:[id number] Assessment Information LACE LACE Length of stay for Answers: 1 day current admission Acuity / Level of Answers: Yes Care: Did the patient have an inpatient admission? Comorbidities - select Answers: Cerebrovascular disease all that apply (CVA, TIA, aneurysms, vasc ular dementia) # of Emergency department Answers: 1-2 visits in the last 6 months Score: 6 Date Signed: 08/24/2017 01:09 PM Electronically Signed By:Angeliuqe Gregory RN Case Management Discharge Plan Note Case Management Discharge Discharge Order Complete? Answers: Yes Patient to Obtain Answers: via Family Medications Transportation Arranged Answers: Family/Friends Faxed Final Orders Answers: Yes Notes: [facility] Agency/Facility Transfer Answers: Yes Notes: [facility] Report Printed & Faxed to Receiving Agency Family Notified Answers: Yes Date Signed: 08/24/2017 01:10 PM Electronically Signed By:Angelique Gregory RN [facility] CM Progress Note CM Note CM Note Notes: Chart reviewed. 87 year old female admitted though ED with dizzyness and HTN. She lives at [facility]. She has been medically cleared per hospital medicine with [facility] via [facility] for PT/OT. Her family is to transport her back to [facility]. Referral and orders via [employer] and spoke to operations director CANDICE Sullivan. CM available should needs arise. Date Signed: 08/24/2017 01:16 PM Electronically Signed By:Angelique Gregory RN Intervention Information Intervention Type:*IM-Signed Date of Service:08/24/2017 01:09 PM Patient Type:Observation Staff Member:CANDICE Gregory Margaret Hours: Discipline: Severity: Comment:
== END 2017-08-24 15:03 | disposition home health service (06) ==
LOC: EDUNIT# → F3N 18:37
PROVIDERS: ADMIT Hospitalist; ATTEND Hospitalist
DX: R42 Dizziness and giddiness (principal); I10 Essential (primary) hypertension; E03.9 Hypothyroidism, unspecified; Z86.73 Personal history of transient ischemic attack (TIA), and cerebral infarction without residual deficits
CPT/HCPCS: 70450; 93005; 97110; 97162; 97166; 97530; 97535; G0378; G8978; G8979; G8987; G8988; J0360; J2405; 96374; J1650

== ENCOUNTER 2017-09-17 07:35 | Emergency (ER) | payer OTHER, MEDICARE ==
--- NOTE | 2017-09-17 07:39 | EDPHY ---
H & P Time Seen by Provider: 09/17/17 07:38 - Medical/Surgical History Hx Asthma: No Hx Chronic Respiratory Disease: No Hx Diabetes: No Hx Cardiac Disease: No Hx Renal Disease: No Hx Cirrhosis: No Hx Alcoholism: No Hx HIV/AIDS: No Hx Splenectomy or Spleen Trauma: No Other PMH: arthritis, hypothyroid, HTN, vertigo, 3 C sections, hysterectomy, appendectomy, cataract surgery - Social History Smoking Status: Former smoker Constitutional: Initial Vital Signs Temperature (C) 36.6 C 09/17/17 08:39 Heart Rate 55 L 09/17/17 08:39 Respiratory Rate 16 09/17/17 08:39 Blood Pressure 124/88 H 09/17/17 08:39 O2 Sat (%) 92 09/17/17 08:39 O2 Delivery Mode Room Air Allergies/Adverse Reactions: Penicillins Allergy (Severe, Verified 03/10/17 02:23) throat closes up soy Allergy (Verified 03/10/17 02:23) red grapes Allergy (Uncoded 08/23/17 16:37) red wine Allergy (Uncoded 08/23/17 16:37) Home Medications: Medication Instructions Recorded Multivitamins [Multivitamin (*)] 1 each PO DAILY 03/10/17 Aspirin [Aspirin 81mg (*)] 81 mg PO DAILY tab.chew 03/12/17 Atorvastatin Calcium [Lipitor 20 20 mg PO DAILY #30 tab 04/01/17 mg (*)] Levothyroxine [Synthroid 88 mcg 88 mcg PO DAILY06 #30 tab 04/01/17 (*)] Lisinopril [Zestril 5 mg (*)] 10 mg PO BID #30 tab 04/01/17 Naproxen Sodium [Aleve 220 MG (*)] 220 mg PO DAILY PRN 08/23/17 Acetaminophen [Tylenol 325mg (*)] 650 mg PO Q4HRS PRN tab 08/24/17 Meclizine HCl [Meclizine HCl 25 mg 25 mg PO BID PRN tab 08/24/17 (RX,OTC)] Medical Decision Making ED Course/Re-evaluation: CHIEF COMPLAINT: Dizziness HISTORY OF PRESENT ILLNESS: The patient is an 87 y/o female with a 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 Since her CVA on 03/11/18, she has had frequent episodes of feeling dizzy upon waking up. Today when she woke up and went to the restroom, the room began to spin, which is different than her normal dizziness. Her symptoms do not feel like her prior CVA. While en route to the hospital her vital signs were normal. No fever, chills, cough, shortness of breath, chest pain, abdominal pain. Prior medical records reviewed including discharge summary from Dr. Mulligan on 03/12/17. REVIEW OF SYSTEMS: A 10 point review of systems was performed and is negative with the exception of the elements mentioned in the history of present illness. PHYSICAL EXAM: HR, BP, O2 Sat, RR. Temp noted General Appearance: Alert, well hydrated, appropriate, and non-toxic appearing. Head: Atraumatic without scalp tenderness or obvious injury Eyes: Pupils equal, round, reactive to light and accommodation, EOMI, no trauma , no injection. Ears: Clear bilaterally, no perforation, normal landmarks Nose: Atraumatic, no rhinorrhea, clear. Throat: Mucus membranes moist. Neck: Supple, nontender, no lymphadenopathy. Respiratory: No retractions, no distress, no wheezes, and no accessory muscle use. Lungs are clear to auscultation bilaterally. Cardiovascular: Regular rate and rhythm, no murmurs, rubs, or gallops. Good capillary refill all extremities. Gastrointestinal: Abdomen is soft, nontender, non-distended, no masses, no rebound, no guarding, no peritoneal signs. Musculoskeletal: Normal active ROM of all extremities, atraumatic. Neurological: Alert, appropriate, and interactive. Non-focal neuro. Skin: No rashes, good turgor, no nodules on palpation. Past medical history: CVA, arthritis, hypothyroid, hypertension, vertigo Past surgical history: 3 C sections, hysterectomy, appendectomy, cataract surgery Family history: Denies Social history: Lives in [place], retired, non-smoker DIAGNOSTICS/PROCEDURES/CRITICAL CARE TIME: EKG: The 12 lead EKG was interpreted by myself as sinus rhythm with a rate of 51. See hard copy and/or "tracemaster" electronic copy for interpretation. DIFFERENTIAL DIAGNOSIS: The differential diagnosis for the patient's dizziness included but was not limited to peripheral and central causes of vertigo, orthostatic causes including dehydration, cardiogenic and neurogenic causes, and blood loss. 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 Currently , she is asymptomatic. She has a non-focal neuro exam. CBC, BMP, UA, and EKG ordered. 0743: The 12 lead EKG was interpreted by myself as sinus rhythm with a rate of 51. 0915: Patient's laboratory findings are normal. 0920: Reassessed patient and discussed laboratory and EKG findings. Her symptoms are consistent with acute on chronic dizziness that has resolved to her baseline. Return precautions provided; patient is comfortable with this plan. 1118: Patient is still in the ED and awaiting for her daughter for a ride to return home. - Data Points Laboratory Results: Laboratory Results 09/17/17 08:05 09/17/17 08:05 09/17/17 09/17/17 09/17/17 08:05 08:05 08:05 WBC 6.69 10^3/uL 10^3/uL (3.80-9.50) RBC 5.00 10^6/uL 10^6/uL (4.18-5.33) Hgb 15.6 g/dL g/dL (12.6-16.3) Hct 46.5 % % (38.0-47.0) MCV 93.0 fL fL (81.5-99.8) MCH 31.2 pg pg (27.9-34.1) MCHC 33.5 g/dL g/dL (32.4-36.7) RDW 12.8 % % (11.5-15.2) Plt Count 271 10^3/uL 10^3/uL (150-400) MPV 9.4 fL fL (8.7-11.7) Neut % (Auto) 47.0 % % (39.3-74.2) Lymph % (Auto) 35.9 % % (15.0-45.0) [place] % (Auto) 11.7 % % (4.5-13.0) Eos % (Auto) 4.3 % % (0.6-7.6) Baso % (Auto) 1.0 % % (0.3-1.7) Nucleat RBC Rel Count 0.0 % % (0.0-0.2) Absolute Neuts (auto) 3.14 10^3/uL 10^3/uL (1.70-6.50) Absolute Lymphs (auto) 2.40 10^3/uL 10^3/uL (1.00-3.00) Absolute Monos (auto) 0.78 10^3/uL 10^3/uL (0.30-0.80) Absolute Eos (auto) 0.29 10^3/uL 10^3/uL (0.03-0.40) Absolute Basos (auto) 0.07 10^3/uL 10^3/uL (0.02-0.10) Absolute Nucleated RBC 0.00 10^3/uL 10^3/uL (0-0.01) Immature Gran % 0.1 % % (0.0-1.1) Immature Gran # 0.01 10^3/uL 10^3/uL (0.00-0.10) Sodium 145 mEq/L mEq/L (135-145) Potassium 4.1 mEq/L mEq/L (3.5-5.2) Chloride 108 mEq/L mEq/L (97-110) Carbon Dioxide 28 mEq/l mEq/l (22-31) Anion Gap 9 mEq/L mEq/L (8-16) BUN 11 mg/dL mg/dL (7-23) Creatinine 0.8 mg/dL mg/dL (0.6-1.0) Estimated GFR > 60 Glucose 84 mg/dL mg/dL (70-100) Calcium 10.5 mg/dL H mg/dL (8.5-10.4) Urine Color YELLOW Urine Appearance HAZY Urine pH 7.0 (5.0-7.5) Ur Specific [place] 1.008 (1.002-1.030) Urine Protein NEGATIVE (NEGATIVE) Urine Ketones NEGATIVE (NEGATIVE) Urine Blood NEGATIVE (NEGATIVE) Urine Nitrate NEGATIVE (NEGATIVE) Urine Bilirubin NEGATIVE (NEGATIVE) Urine Urobilinogen NEGATIVE EU EU (0.2-1.0) Ur Leukocyte Esterase NEGATIVE (NEGATIVE) Urine RBC NONE SEEN /hpf /hpf (0-3) Urine WBC NONE SEEN /hpf /hpf (0-3) Ur Epithelial Cells NONE SEEN /lpf /lpf (NONE-1+) Urine Mucus TRACE /lpf /lpf (NONE-1+) Urine Glucose NEGATIVE (NEGATIVE) Departure - Departure Disposition: Home, Routine, Self-Care Clinical Impression: Dizziness Condition: Good Instructions: Dizziness (ED) Additional Instructions: 1. Drink plenty of fluids. 2. Return to the emergency department immediately for headache, numbness, weakness, severe vertigo, neck pain, inability to tolerate fluids by mouth or other worsening of condition. 3. If symptoms persist for more than 48 hours, followup with your primary care physician and/or a neurologist for further evaluation. Referrals: Maya Cruz MD [Medical Doctor] - As per Instructions Patient,NotPresent [Unknown] - As per Instructions Duane River DO [Medical Doctor] - As per Instructions Report Scribed for: Louie Ge Report Scribed by: Natalei Cruz Date of Report: 09/17/17 Time of Report: 07:42
--- NOTE | 2017-09-17 07:45 | CPEKG ---
Heart Rate: 51 RR Interval: 1176 P-R Interval: 140 QRSD Interval: 94 QT Interval: 420 QTC Interval: 387 P Jupiter: 37 QRS Jupiter: 22 T Wave Jupiter: 62 EKG Severity - NORMAL ECG - EKG Impression: SINUS RHYTHM Electronically Signed By: Louie Ge 17-Sep-2017 14:17:08
[2017-09-17 08:16] LABS: PLATELET COUNT 271 10^3/uL (150-400)
[2017-09-17 08:41] VITALS: RESP 16; TEMP 97.9
[2017-09-17 10:41] VITALS: BP 172/72; PULSE 62; O2SAT 95
--- NOTE | 2017-09-17 12:18 | ASMTCMCOM ---
CM Note CM Note Notes: Patient's daughter Claudia contacted for transporation home ([facility]). Patient is ambulatory, but arrived to ER via EMS in a nightgown only-no shoes or jacket. Claudia was able to contact her sister Dash who ultimately came to pick patient up. Per converstaion with Claudia, family has encouraged patient to move closer to them and to consider an AL environment, but patient has been very reluctant to do this. Patient has threee daughters and they all live and work outside the [facility]. Jamal states that they will continue to work on getting patient closer to them and into a more supportive environment. In the meantime, the sisters share time visiting patient and assisting her with shopping, etc. Patient was recently discharged from an IP stay here in July and HH with [facility] PT/OT was referred. Upon contacting [facility], these services were not initiated and patient had not received HH from [facility] since March,. When asked, patient tells me that "No" she has not had HH and that she does some PT at [facility] and has a women come in once a month to clean her apartment. Patient Date Signed: 09/17/2017 12:17 PM Electronically Signed By:Veena Gambino RN
== END 2017-09-17 11:45 | disposition home or self-care (01) ==
LOC: EDUNIT#
DX: R42 Dizziness and giddiness (principal); I10 Essential (primary) hypertension; Z86.73 Personal history of transient ischemic attack (TIA), and cerebral infarction without residual deficits; Z87.891 Personal history of nicotine dependence; Z79.82 Long term (current) use of aspirin

== ENCOUNTER → 2018-01-01 | Outpatient (CLI) | payer OTHER, MEDICARE ==
[~2018-01-01] MED LIST: GADOBUTROL 10 ML VIAL IVP ONE
== END ==
LOC: FIMAGING 15:13
PROVIDERS: ATTEND Psychiatry & Neurology Neurology
DX: I63.9 Cerebral infarction, unspecified (principal); G31.9 Degenerative disease of nervous system, unspecified
CPT/HCPCS: 70553; A9585; 82565-PO